=== PATIENT | male | born 1965 | race Caucasian/White ===

== ENCOUNTER 2017-02-15 09:15 | Day surgery (SDC) | payer OTHER ==
[2017-02-14 13:49] VITALS: BMI 25.0
[~2017-02-15 09:15] MED LIST: LACTATED RINGERS 1,000 ML IV SCH
[2017-02-15] MEDS ORDERED: LACTATED RINGERS 1,000 ML IV ONE (09:33)
[2017-02-15 09:36] VITALS: RESP 18; TEMP 98
[2017-02-15] MEDS ORDERED: LIDOCAINE 1% 20 ML VIAL (10MG/ML) FOR IV START INTRADERMA ONE (09:37)
[2017-02-15] MEDS ORDERED: PROPOFOL 10 MG/ML 20 ML VIAL IV ONE (10:17)
[2017-02-15] MEDS ORDERED: LIDOCAINE 1% INJ 10MG/ML (20 ML MDV) ONE (10:17)
--- NOTE | 2017-02-15 10:35 | P.PCN ---
Date of Procedure: 02/15/17 Procedure(s) Performed: BRIEF HISTORY: Patient is a 52-year-old pleasant white male, scheduled for an elective colonoscopy as a part of screening for colorectal neoplasia. PROCEDURE PERFORMED: Colonoscopy. PREOPERATIVE DIAGNOSIS: Screening for colon cancer. IV sedation per Anesthesia. PROCEDURE: After informed consent was obtained, the patient, was brought into the endoscopy unit. IV sedation was administered by Anesthesia under continuous monitoring. Digital rectal examination was normal. Initially the Olympus CF- 160 flexible video colonoscope was then inserted in the rectum, gradually advanced into the right colon where there was evidence of previous bowel resection noted. The anastomosis appeared normal. The terminal ileum appeared normal. The ascending colon, transverse colon, descending colon, sigmoid colon , and rectum appeared normal. Retroflexion was performed in the rectum and no lesions were seen. The patient tolerated the procedure well. IMPRESSION: Normal-appearing colon from rectum to the right colon with no evidence of colitis or colorectal neoplasia RECOMMENDATIONS: Findings of this examination were discussed with the patient as well as his family. He was advised to have a repeat screening colonoscopy in 10 years..
[2017-02-15 10:55] VITALS: BP 128/82; PULSE 75
== END 2017-02-15 11:35 | disposition home or self-care (01) ==
LOC: ORWHC2ENDO 09:15
PROVIDERS: ATTEND Internal Medicine Gastroenterology
DX: Z12.11 Encounter for screening for malignant neoplasm of colon (principal); I25.10 Atherosclerotic heart disease of native coronary artery without angina pectoris; I10 Essential (primary) hypertension; E78.5 Hyperlipidemia, unspecified; G47.33 Obstructive sleep apnea (adult) (pediatric); N20.0 Calculus of kidney; Z90.49 Acquired absence of other specified parts of digestive tract; Z79.02 Long term (current) use of antithrombotics/antiplatelets; Z79.82 Long term (current) use of aspirin; Z79.899 Other long term (current) drug therapy; Z88.5 Allergy status to narcotic agent; Z87.891 Personal history of nicotine dependence
CPT/HCPCS: J2001; J2704; G0121; 45378

== ENCOUNTER 2017-11-16 18:05 | Emergency (ER) | payer OTHER ==
[2017-11-16 18:29] VITALS: RESP 18; TEMP 98.2
[2017-11-16] MEDS ORDERED: SODIUM CHLORIDE 0.9% 1,000 ML IV STA ×2 (18:31)
[2017-11-16] MEDS ORDERED: KETOROLAC 30 MG/ML 1 ML VIAL IVP STA (18:31)
[2017-11-16] MEDS ORDERED: ONDANSETRON 4 MG/2 ML VIAL IVP STA (18:31)
[2017-11-16] MEDS ORDERED: HYDROmorphone 1 MG/ML 1 ML SYRINGE IVP STA (18:31)
--- NOTE | 2017-11-16 18:45 | ED ---
Abdominal Pain HPI - General Source: patient, RN notes reviewed, old records reviewed Mode of arrival: ambulatory Limitations: no limitations <Lelo De La Paz - Last Filed: 11/16/17 20:34> <Mary Lewis - Last Filed: 11/17/17 01:41> - General Chief Complaint: Abdominal Pain Stated Complaint: POSS KIDNEY STONE Time Seen by Provider: 11/16/17 18:31 - History of Present Illness Initial Comments: 52-year-old male presents with CC of Left flank and groin pain. He reports he' s had hematuria for the past week. He does have multiple lithotripsies and ureteral stenting. Patient has had no fevers or chills. Multiple episodes of vomiting after the onset of pain. Patient states that his urologist is Dr. Melvin.Patient denies any recent fever, chills, shortness of breath, chest pain , back pain, numbness or tingling, dysuria or hematuria, constipation or diarrhea, headaches or visual changes, or any other current symptoms (Lelo De La Paz) - Related Data Home Medications Medication Instructions Recorded Confirmed Aspirin 81 mg PO DAILY 02/14/17 11/16/17 Atorvastatin [Lipitor] 40 mg PO HS 02/14/17 11/16/17 Isosorbide Mononitrate [Isosorbide 30 mg PO 1800 02/14/17 11/16/17 Mononitrate ER] Losartan [Cozaar] 50 mg PO QAM 02/14/17 11/16/17 Acetaminophen [Tylenol] 500 mg PO Q4-6H PRN 11/16/17 11/16/17 Previous Rx's Medication Instructions Recorded Clopidogrel [Plavix] 75 mg PO DAILY #30 tab 09/26/14 Metoprolol Tartrate [Lopressor] 25 mg PO BID #60 tab 09/26/14 Nitroglycerin Sl Tabs [Nitrostat] 0.4 mg SUBLINGUAL Q5M PRN #25 tab 09/26/14 Acetaminophen with Codeine 1 tab PO Q6H PRN 3 Days #10 tab 11/17/17 [Tylenol w/codeine #3] Ketorolac [Toradol] 10 mg PO Q6HR #28 tab 11/17/17 Ondansetron Odt [Zofran Odt] 4 mg PO Q8HR PRN #12 tab 11/17/17 Allergies Allergy/AdvReac Type Severity Reaction Status Date / Time morphine Allergy Nausea & Verified 11/16/17 19:00 Vomiting codeine AdvReac Vomiting Verified 11/16/17 19:00 Review of Systems ROS Other: All systems not noted in ROS Statement are negative. <Josephine De La Pazily - Last Filed: 11/16/17 20:34> ROS Other: All systems not noted in ROS Statement are negative. <Mary Lewis - Last Filed: 11/17/17 01:41> ROS Statement: Those systems with pertinent positive or pertinent negative responses have been documented in the HPI. Past Medical History Past Medical History: Hyperlipidemia, Hypertension, Myocardial Infarction ([place]), Sleep Apnea/CPAP/BIPAP Additional Past Medical History / Comment(s): kidney stones,no cpap,bowel obstruction,hx adhesion,loose stools since teenager,hemorrhoid Last Myocardial Infarction Date:: 09-23-2014 History of Any Multi-Drug Resistant Organisms: None Reported Past Surgical History: Bowel Resection, Heart Catheterization With Stent Additional Past Surgical History / Comment(s): bowel resection,2 surgeries for adhesions,heart stent x1 Past Anesthesia/Blood Transfusion Reactions: No Reported Reaction Date of Last Stent Placement:: 09-23-2014 Past Psychological History: No Psychological Hx Reported Smoking Status: Current every day smoker Past Alcohol Use History: Daily, Heavy Past Drug Use History: Marijuana - Past Family History Father Family Medical History: CVA/TIA, Hyperlipidemia, Hypertension <Josephine De La Pazily - Last Filed: 11/16/17 20:34> General Exam Limitations: no limitations General appearance: alert, in no apparent distress Head exam: Present: atraumatic, normocephalic, normal inspection Eye exam: Present: normal appearance, PERRL, EOMI. Absent: scleral icterus, conjunctival injection, periorbital swelling ENT exam: Present: normal exam, mucous membranes moist Neck exam: Present: normal inspection. Absent: tenderness, meningismus, lymphadenopathy Respiratory exam: Present: normal lung sounds bilaterally. Absent: respiratory distress, wheezes, rales, rhonchi, stridor Cardiovascular Exam: Present: regular rate, normal rhythm, normal heart sounds. Absent: systolic murmur, diastolic murmur, rubs, gallop, clicks GI/Abdominal exam: Present: soft, tenderness (Patient is le CVA tenderness.), normal bowel sounds. Absent: distended, guarding, rebound, rigid Back exam: Present: normal inspection, CVA tenderness (L) Neurological exam: Present: alert Psychiatric exam: Present: normal affect, normal mood Skin exam: Present: warm, dry, intact, normal color. Absent: rash <Lelo De La Paz - Last Filed: 11/16/17 20:34> <Mary Lewis P - Last Filed: 11/17/17 01:41> - General Exam Comments Initial Comments: 52-year-old male. Alert and oriented. Patient appears in moderate discomfort. (Lelo De La Paz) Vital Signs 11/16/17 11/16/17 18:26 23:21 Temperature 98.2 F Pulse Rate 70 85 Respiratory 18 18 Rate Blood Pressure 188/98 137/86 O2 Sat by Pulse 98 95 Oximetry Medical Decision Making - Lab Data Result diagrams: 11/16/17 18:31 11/16/17 18:31 - Radiology Data Radiology results: report reviewed <Lelo De La Paz - Last Filed: 11/16/17 20:34> - Lab Data Result diagrams: 11/16/17 18:31 11/16/17 18:31 <Mary Lewis - Last Filed: 11/17/17 01:41> - Medical Decision Making 52-year-old male has returned today with severe left-sided flank pain and lower abdominal pain. Here to emergency department in moderate distress. Multiple episodes of vomiting. Patient had IV established and blood work obtained. Blood pressure is elevated white blood cell count of 13,000. Patient clinically had the appearance of a kidney stone is he's had the past. We did do computed tomography scan without contrast today. There is a large obstructing left ureteral calculus at the proximal ureter. The calculus measures approximately 1.5 cm x 2 cm. Patient was given a dose of pain medication and multiple doses of nausea medication. Patient attempted to get a urinalysis but was unsuccessful. Patient will have a bladder scan and urinalysis is pending. Patient's case will be transferred to Dr. ruel norwood 30 5 PM. (Lelo De La Paz) Patient care was signed out to me by Dr. Law at 9 PM, patient had presented with left-sided flank pain, computed tomography scan had revealed a UPJ stone. Labs revealed a creatinine of 1.4. The time of sign out the patient's pain was managed with IV medications and he was awaiting urinalysis. Patient remained in the ER for 3 hours without providing urinalysis. Patient was encouraged provide a urinalysis and was then able to. Urinalysis revealed no evidence of infection. Patient was resting comfortably throughout his ED stay. Discussed with the patient a plan for discharge home, patient does express some hesitancy as he lives nearly 30 minutes away and has had to undergo ureteral stent placement and lithotripsy in the past for stones the size. Advised patient we will attempt by mouth medications and discharge home, he can always return for reevaluation of his worsening or inability to tolerate by mouth medications. She is agreeable with this. The patient states he has had morphine and codeine in the past, both of which cause nausea. He is agreeable to trying Tylenol 3 with Zofran for pain management. In addition patient reports he's been discharged home with by mouth Toradol for pain management with previous kidney stones. I will prescribe the patient Tylenol 3, Zofran and Toradol orally for management of this kidney stone. Return parameters were discussed and patient was discharged home in stable condition. (Mary Lewis) - Lab Data Lab Results 11/16/17 11/16/17 11/16/17 Range/Units 18:31 18:31 21:52 WBC 13.5 H (3.8-10.6) k/uL RBC 5.18 (4.30-5.90) m/uL Hgb 15.9 (13.0-17.5) gm/dL Hct 49.1 (39.0-53.0) % MCV 94.9 (80.0-100.0) fL MCH 30.7 (25.0-35.0) pg MCHC 32.4 (31.0-37.0) g/dL RDW 12.7 (11.5-15.5) % Plt Count 295 (150-450) k/uL Neutrophils % 81 % Lymphocytes % 10 % Monocytes % 7 % Eosinophils % 1 % Basophils % 0 % Neutrophils # 11.0 H (1.3-7.7) k/uL Lymphocytes # 1.3 (1.0-4.8) k/uL Monocytes # 0.9 (0-1.0) k/uL Eosinophils # 0.1 (0-0.7) k/uL Basophils # 0.1 (0-0.2) k/uL Sodium 144 (137-145) mmol/L Potassium 4.3 (3.5-5.1) mmol/L Chloride 110 H (98-107) mmol/L Carbon Dioxide 23 (22-30) mmol/L Anion Gap 11 mmol/L BUN 16 (9-20) mg/dL Creatinine 1.40 H (0.66-1.25) mg/dL Est GFR (CKD-EPI)AfAm 66 (>60 ml/min/1.73 sqM) Est GFR (CKD-EPI)NonAf 57 (>60 ml/min/1.73 sqM) Glucose 126 H (74-99) mg/dL Calcium 9.7 (8.4-10.2) mg/dL Total Bilirubin 0.9 (0.2-1.3) mg/dL AST 39 (17-59) U/L ALT 51 (21-72) U/L Alkaline Phosphatase 65 (38-126) U/L Total Protein 7.2 (6.3-8.2) g/dL Albumin 4.5 (3.5-5.0) g/dL Amylase 68 (30-110) U/L Lipase 107 (23-300) U/L Urine Color Yellow Urine Appearance Clear (Clear) Urine pH 5.0 (5.0-8.0) Ur Specific [place] 1.016 (1.001-1.035) Urine Protein Negative (Negative) Urine Glucose (UA) Negative (Negative) Urine Ketones Trace H (Negative) Urine Blood Trace H (Negative) Urine Nitrite Negative (Negative) Urine Bilirubin Negative (Negative) Urine Urobilinogen <2.0 (<2.0) mg/dL Ur Leukocyte Esterase Negative (Negative) Urine RBC 2 (0-5) /hpf Urine WBC 2 (0-5) /hpf Ur Squamous Epith Cells <1 (0-4) /hpf Hyaline Casts 1 (0-2) /lpf Urine Mucus Rare H (None) /hpf - Radiology Data There is a large calculus obstructing the left kidney at the ureteral pelvic junction. Perinephric edema. Hydronephrosis. Numerous left colliculi. Obstruction is similar to old exam. Clearing of the tiny colliculi the right kidney compared old exam. (Brain,Lelo) Disposition <Lelo De La Paz - Last Filed: 11/16/17 20:34> Is patient prescribed a controlled substance at d/c from ED?: No Time of Disposition: 01:10 <Mary Lewis - Last Filed: 11/17/17 01:41> Clinical Impression: Calculus of kidney Disposition: HOME SELF-CARE Condition: Good Instructions: Kidney Stones (ED) Prescriptions: Acetaminophen with Codeine [Tylenol w/codeine #3] 1 tab PO Q6H PRN 3 Days #10 tab PRN Reason: Pain Ketorolac [Toradol] 10 mg PO Q6HR #28 tab Ondansetron Odt [Zofran Odt] 4 mg PO Q8HR PRN #12 tab PRN Reason: Nausea Referrals: Francine Darby MD [Primary Care Provider] - 1-2 days
[2017-11-16 19:09] LABS: Basophils # (A) 0.1 k/uL (0-0.2); Basophils % (A) 0 %; Eosinophils # (A) 0.1 k/uL (0-0.7); Eosinophils % (A) 1 %; HCT 49.1 % (39.0-53.0); HGB 15.9 gm/dL (13.0-17.5); Lymphocytes # (A) 1.3 k/uL (1.0-4.8); Lymphocytes % (A) 10 %; MCH 30.7 pg (25.0-35.0); MCHC 32.4 g/dL (31.0-37.0); MCV 94.9 fL (80.0-100.0); Mean Platelet Volume 6.1; Monocytes # (A) 0.9 k/uL (0-1.0); Monocytes % (A) 7 %; Neutrophils % (A) 81 %; Platelet Count 295 k/uL (150-450); RBC 5.18 m/uL (4.30-5.90); RDW 12.7 % (11.5-15.5); WBC 13.5 k/uL (3.8-10.6)
[2017-11-16 19:20] LABS: Albumin 4.5 g/dL (3.5-5.0); Calcium 9.7 mg/dL (8.4-10.2); Potassium 4.3 mmol/L (3.5-5.1); Total Bilirubin 0.9 mg/dL (0.2-1.3); Total Protein 7.2 g/dL (6.3-8.2)
--- NOTE | 2017-11-16 19:30 | CT ---
EXAMINATION TYPE: CT abdomen pelvis wo con DATE OF EXAM: 11/16/2017 COMPARISON: 05/18/2010 HISTORY: Left side flank pain. CT DLP: 366.2 mGycm Automated exposure control for dose reduction was used. TECHNIQUE: Helical acquisition of images was performed from the lung bases through the pelvis. FINDINGS: Lung bases are clear. There is no pleural effusion. Heart size is normal. There is no pericardial eff usion. There are small hiatal hernia. Stomach is otherwise normal. Liver spleen pancreas gallbladder appear normal. Bile ducts are not dilated. There is left-sided hydronephrosis with perinephric edema. There are numerous left renal calculi. The re is a 13 mm calculus at the left ureteropelvic junction. Right kidney shows no calculi or hydroneph rosis. There is no retroperitoneal adenopathy. There is no mesenteric adenopathy. There is no intestinal wal l thickening. There are no dilated loops. Bladder distends smoothly. There is no sign of ascites or f ree air. There is no inguinal hernia or adenopathy. Appendix is not seen. There is no sign of appendi citis. IMPRESSION: LARGE CALCULUS OBSTRUCTING LEFT KIDNEY AT THE URETEROPELVIC JUNCTION. PERINEPHRIC EDEMA. HYDRONEPHROS IS. NUMEROUS LEFT RENAL CALCULI. OBSTRUCTION IS SIMILAR TO OLD EXAM. THERE IS CLEARING OF TINY CALCUL I IN THE RIGHT KIDNEY COMPARED TO OLD EXAM.
[2017-11-16] MEDS ORDERED: METOCLOPRAMIDE 5 MG/ML 2 ML VIAL IVP STA (19:48)
[2017-11-16] MEDS ORDERED: diphenhydrAMINE 50 MG/ML 1 ML VIAL IVP STA (19:48)
[2017-11-16 23:22] VITALS: BP 137/86; PULSE 85
[2017-11-16 23:23] LABS: Appearance,Urine Clear (Clear); Bilirubin,Urine Negative (Negative); Blood,Urine Trace (Negative); Color,Urine Yellow; Glucose,Urine (UA) Negative (Negative); Hyaline Casts,Urine 1 /lpf (0-2); Ketones,Urine Trace (Negative); Leukocyte Esterase,Urine Negative (Negative); Mucus,Urine Rare /hpf; Nitrite,Urine Negative (Negative); Protein,Urine Negative (Negative); RBC,Urine 2 /hpf (0-5); Specific Gravity,Urine 1.016 (1.001-1.035); Squamous Epithelial Cell,Urine <1 /hpf (0-4); Urobilinogen,Urine <2.0 mg/dL (<2.0); WBC,Urine 2 /hpf (0-5)
[2017-11-17] MEDS ORDERED: ACET/COD 300 MG/30 MG STARTER PACK 6 TAB BTL PO STA (00:34)
[2017-11-17] MEDS ORDERED: ONDANSETRON 4 MG ODT STARTER PACK 2 TAB BTL PO STA (00:34)
[2017-11-17] MEDS ORDERED: ETODOLAC 400 MG TAB PO STA (00:34)
== END 2017-11-17 01:46 | disposition home or self-care (01) ==
LOC: EC 18:05
DX: N13.2 Hydronephrosis with renal and ureteral calculous obstruction (principal); E78.5 Hyperlipidemia, unspecified; I10 Essential (primary) hypertension; I25.2 Old myocardial infarction; G47.30 Sleep apnea, unspecified; F17.200 Nicotine dependence, unspecified, uncomplicated; Z79.82 Long term (current) use of aspirin; Z79.899 Other long term (current) drug therapy; Z88.5 Allergy status to narcotic agent; Z95.5 Presence of coronary angioplasty implant and graft
CPT/HCPCS: 36415; 80053; 82150; 83690; 85025; 81001; 74176; 99284; 96374; 96375 ×4; 96361 ×6; J1200; J2765; J2405; J1885; J1170; S0119

== ENCOUNTER 2017-11-18 19:46 | Observation (INO) | payer OTHER ==
[2017-11-18] MEDS ORDERED: SODIUM CHLORIDE 0.9% 1,000 ML IV STA (20:43)
[2017-11-18] MEDS ORDERED: KETOROLAC 30 MG/ML 1 ML VIAL IVP STA (20:43)
--- NOTE | 2017-11-18 21:00 | ED ---
Abdominal Pain HPI - General Source: patient, RN notes reviewed Mode of arrival: ambulatory Limitations: no limitations <Megan Jerry - Last Filed: 11/19/17 00:08> <Ant Allan - Last Filed: 11/20/17 08:31> - General Chief Complaint: Abdominal Pain Stated Complaint: Kidney stone Time Seen by Provider: 11/18/17 20:32 - History of Present Illness Initial Comments: This is a 52-year-old male who presents to the emergency department with chief complaint of kidney stone. Patient states he was seen here 2 days ago with left flank pain. He he states he was diagnosed with a left-sided kidney stone. Patient does report a history of kidney stones. He states that he has seen Dr. Melvin 2 times for stenting and lithotripsy. Patient states that his pain has improved since Sunday, however from this afternoon to the pain is worsening. Patient states he has been taking Toradol and Tylenol 3 throughout the weekend. Patient is concerned that the kidney stone is not moving. He denies any fevers or chills, chest pain or shortness of breath, nausea or vomiting. He states he has not had a bowel movement since Sunday. He reports sharp stabbing pain in the left flank that radiates to the abdomen. He states he has generalized abdominal discomfort. (Megan Jerry) - Related Data Home Medications Medication Instructions Recorded Confirmed Atorvastatin [Lipitor] 40 mg PO HS 02/14/17 11/19/17 Isosorbide Mononitrate [Isosorbide 30 mg PO DAILY@1800 02/14/17 11/19/17 Mononitrate ER] Losartan [Cozaar] 50 mg PO QAM 02/14/17 11/19/17 Acetaminophen [Tylenol] 500 mg PO Q4-6H PRN 11/16/17 11/19/17 Previous Rx's Medication Instructions Recorded Metoprolol Tartrate [Lopressor] 25 mg PO BID #60 tab 09/26/14 Nitroglycerin Sl Tabs [Nitrostat] 0.4 mg SUBLINGUAL Q5M PRN #25 tab 09/26/14 Allergies Allergy/AdvReac Type Severity Reaction Status Date / Time morphine Allergy Nausea & Verified 11/19/17 09:26 Vomiting codeine AdvReac Vomiting Verified 11/19/17 09:26 Review of Systems ROS Other: All systems not noted in ROS Statement are negative. <Megan Jerry - Last Filed: 11/19/17 00:08> ROS Other: All systems not noted in ROS Statement are negative. <JerrellAnt - Last Filed: 11/20/17 08:31> ROS Statement: Those systems with pertinent positive or pertinent negative responses have been documented in the HPI. Past Medical History Past Medical History: Hyperlipidemia, Hypertension, Myocardial Infarction ([place]), Sleep Apnea/CPAP/BIPAP Additional Past Medical History / Comment(s): kidney stones,no cpap,bowel obstruction,hx adhesion,loose stools since teenager,hemorrhoid Last Myocardial Infarction Date:: 09-23-2014 History of Any Multi-Drug Resistant Organisms: None Reported Past Surgical History: Bowel Resection, Heart Catheterization With Stent Additional Past Surgical History / Comment(s): bowel resection,2 surgeries for adhesions,heart stent x1 Past Anesthesia/Blood Transfusion Reactions: No Reported Reaction Date of Last Stent Placement:: 09-23-2014 Past Psychological History: No Psychological Hx Reported Smoking Status: Current every day smoker Past Alcohol Use History: Daily, Heavy Past Drug Use History: Marijuana - Past Family History Father Family Medical History: CVA/TIA, Hyperlipidemia, Hypertension <Megan Jerry - Last Filed: 11/19/17 00:08> General Exam Limitations: no limitations <Octaviano Jerryistin Rolan - Last Filed: 11/19/17 00:08> <Ant Allan - Last Filed: 11/20/17 08:31> - General Exam Comments Initial Comments: General: Awake and alert, well-developed; in moderate distress due to pain. Patient is curled up in the position upon entering the room. is at bedside. HEENT: Head atraumatic, normocephalic. Pupils are equal, round and reactive to light. Extraocular movements intact. Oropharynx moist without erythema or exudate. Neck: Supple. Normal ROM. Cardiovascular: Regular rate and rhythm. No murmurs, rubs or gallops. Chest symmetrical. Respiratory: Lungs clear to auscultation bilaterally. No wheezes, rales or rhonchi. Normal respiratory effort with no use of accessory muscles. Abdomen: Soft, mild distention. No tenderness on palpation. No rigidity, rebound or guarding. Normal bowel sounds in all 4 quadrants. Left CVA tenderness. Musculoskeletal: Normal ROM, no tenderness bilateral upper and lower extremities. Skin: [place], warm and dry. Neurological: Alert and oriented x3. CN II-XII grossly intact. Speech is fluent and answers are appropriate. No focal neuro deficits. Psychiatric: Normal mood and affect. No overt signs of depression or anxiety noted. (Megan Jerry) Vital Signs 11/18/17 11/18/17 11/18/17 19:47 21:00 22:00 Temperature 98.8 F Pulse Rate 97 84 97 Respiratory 16 20 18 Rate Blood Pressure 172/101 149/89 149/87 O2 Sat by Pulse 99 97 97 Oximetry 11/18/17 23:18 Temperature 98.1 F Pulse Rate 89 Respiratory 18 Rate Blood Pressure 144/74 O2 Sat by Pulse 97 Oximetry Medical Decision Making - Lab Data Result diagrams: 11/18/17 20:03 11/18/17 20:03 - Radiology Data Radiology results: report reviewed, image reviewed <Megan Jerry - Last Filed: 11/19/17 00:08> - Lab Data Result diagrams: 11/19/17 06:40 11/19/17 06:40 <Ant Allan - Last Filed: 11/20/17 08:31> - Medical Decision Making This is a 52-year-old male who presents to the emergency department with chief complaint of kidney stone. Patient was diagnosed with a left-sided kidney stone on November 16. Computed tomography scan at that time revealed an obstructing stone at the left ureteropelvic junction. Kidney stone measured 13 mm. Patient was discharged home. He has been controlling pain with Toradol and Tylenol with codeine, however he states that the pain is getting worse. He states he has a history of obstructing stones for which he has needed stents and lithotripsy. Patient states that the stones in the past were smaller than the one he currently has. CBC revealed no acute abnormalities. CMP did reveal a creatinine at 1.5, increased from 1.4 on the . KUB revealed a 16 mm calcification at the L3 level. Findings were discussed with attending physician , Dr. Allan who also evaluated the patient. Dr. Allan was in contact with on- call urologist, Dr. Townsend. Patient will be admitted with consult to urologist, Dr. Melvin. Patient is in agreement for admission. His vitals are stable and he is in no acute distress. Pain is controlled. (Megan Jerry) I saw this patient in conjunction with the physician equal opportunity assistant. I performed independent history and physical exam. Agree with case management. (Ant Allan) - Lab Data Lab Results 11/18/17 11/18/17 11/18/17 Range/Units 20:03 20:03 21:00 WBC 8.1 (3.8-10.6) k/uL RBC 4.81 (4.30-5.90) m/uL Hgb 15.3 (13.0-17.5) gm/dL Hct 44.9 (39.0-53.0) % MCV 93.3 (80.0-100.0) fL MCH 31.7 (25.0-35.0) pg MCHC 34.0 (31.0-37.0) g/dL RDW 12.5 (11.5-15.5) % Plt Count 239 (150-450) k/uL Neutrophils % 75 % Lymphocytes % 14 % Monocytes % 8 % Eosinophils % 2 % Basophils % 0 % Neutrophils # 6.1 (1.3-7.7) k/uL Lymphocytes # 1.2 (1.0-4.8) k/uL Monocytes # 0.6 (0-1.0) k/uL Eosinophils # 0.1 (0-0.7) k/uL Basophils # 0.0 (0-0.2) k/uL Sodium 140 (137-145) mmol/L Potassium 3.8 (3.5-5.1) mmol/L Chloride 107 (98-107) mmol/L Carbon Dioxide 26 (22-30) mmol/L Anion Gap 7 mmol/L BUN 15 (9-20) mg/dL Creatinine 1.50 H (0.66-1.25) mg/dL Est GFR (CKD-EPI)AfAm 61 (>60 ml/min/1.73 sqM) Est GFR (CKD-EPI)NonAf 53 (>60 ml/min/1.73 sqM) Glucose 113 H (74-99) mg/dL Calcium 9.0 (8.4-10.2) mg/dL Total Bilirubin 1.8 H (0.2-1.3) mg/dL AST 28 (17-59) U/L ALT 35 (21-72) U/L Alkaline Phosphatase 47 (38-126) U/L Total Protein 6.4 (6.3-8.2) g/dL Albumin 3.9 (3.5-5.0) g/dL Urine Color Light Yellow Urine Appearance Clear (Clear) Urine pH 5.5 (5.0-8.0) Ur Specific [place] 1.008 (1.001-1.035) Urine Protein Negative (Negative) Urine Glucose (UA) Negative (Negative) Urine Ketones Negative (Negative) Urine Blood Small H (Negative) Urine Nitrite Negative (Negative) Urine Bilirubin Negative (Negative) Urine Urobilinogen <2.0 (<2.0) mg/dL Ur Leukocyte Esterase Negative (Negative) Urine RBC 1 (0-5) /hpf Urine WBC 3 (0-5) /hpf Urine Mucus Rare H (None) /hpf - Radiology Data X-ray KUB impression: Calcification at L3 level on left side. There has been removal of the ureteral stent compared 10/08/2010. (Megan Jerry) Disposition <Megan Jerry - Last Filed: 11/19/17 00:08> <Ant Allan - Last Filed: 11/20/17 08:31> Clinical Impression: Ureteropelvic junction (UPJ) obstruction, left Disposition: ADMITTED IP TO THIS HOSP Condition: Good
[2017-11-18 21:01] LABS: Basophils % (A) 0 %; Eosinophils # (A) 0.1 k/uL (0-0.7); Eosinophils % (A) 2 %; HCT 44.9 % (39.0-53.0); HGB 15.3 gm/dL (13.0-17.5); Lymphocytes # (A) 1.2 k/uL (1.0-4.8); Lymphocytes % (A) 14 %; MCH 31.7 pg (25.0-35.0); MCV 93.3 fL (80.0-100.0); Mean Platelet Volume 6.8; Monocytes # (A) 0.6 k/uL (0-1.0); Monocytes % (A) 8 %; Neutrophils # (A) 6.1 k/uL (1.3-7.7); Neutrophils % (A) 75 %; Platelet Count 239 k/uL (150-450); RBC 4.81 m/uL (4.30-5.90); RDW 12.5 % (11.5-15.5); WBC 8.1 k/uL (3.8-10.6)
[2017-11-18 21:18] LABS: Albumin 3.9 g/dL (3.5-5.0); Potassium 3.8 mmol/L (3.5-5.1); Total Bilirubin 1.8 mg/dL (0.2-1.3); Total Protein 6.4 g/dL (6.3-8.2)
--- NOTE | 2017-11-18 21:22 | XR ---
EXAMINATION TYPE: XR KUB DATE OF EXAM: 11/18/2017 COMPARISON: 10/17/2010 HISTORY: Flank pain TECHNIQUE: 2 views upright FINDINGS: Bowel gas pattern is normal. There is no sign of intestinal obstruction or pneumoperitoneum . Fecal pattern is normal. Lung bases are clear. There are no pathologic calcifications over the kidn eys. There are 16 mm faint calcification in the left paraspinal region at L3 level. IMPRESSION: Calcification at L3 level on the left side. There is been removal of the ureteral stent c ompared to 10/08/2010.
[2017-11-18 21:29] LABS: Appearance,Urine Clear (Clear); Bilirubin,Urine Negative (Negative); Blood,Urine Small (Negative); Color,Urine Light Yellow; Glucose,Urine (UA) Negative (Negative); Ketones,Urine Negative (Negative); Leukocyte Esterase,Urine Negative (Negative); Mucus,Urine Rare /hpf; Nitrite,Urine Negative (Negative); PH, Urine 5.5 (5.0-8.0); Protein,Urine Negative (Negative); RBC,Urine 1 /hpf (0-5); Specific Gravity,Urine 1.008 (1.001-1.035); Urobilinogen,Urine <2.0 mg/dL (<2.0); WBC,Urine 3 /hpf (0-5)
[2017-11-18] MEDS ORDERED: HYDROmorphone 1 MG/ML 1 ML SYRINGE IVP PRN (22:41)
[2017-11-18] MEDS ORDERED: IBUPROFEN 400 MG TAB PO PRN (22:41)
[2017-11-18] MEDS ORDERED: NALOXONE 0.4 MG/ML 1 ML VIAL IV PRN (22:41)
[2017-11-18] MEDS ORDERED: ONDANSETRON 4 MG/2 ML VIAL IVP PRN (22:41)
[2017-11-18] MEDS ORDERED: SODIUM CHLORIDE 0.9% 1,000 ML IV SCH (22:45)
[2017-11-19] MEDS: KETOROLAC 30 MG/ML 1 ML VIAL IVP PRN ×2 (03:58→14:42)
[2017-11-19 07:50] LABS: Basophils % (A) 0 %; Eosinophils # (A) 0.1 k/uL (0-0.7); Eosinophils % (A) 2 %; HCT 37.2 % (39.0-53.0); HGB 12.5 gm/dL (13.0-17.5); Lymphocytes % (A) 18 %; MCH 31.2 pg (25.0-35.0); MCHC 33.4 g/dL (31.0-37.0); MCV 93.4 fL (80.0-100.0); Mean Platelet Volume 6.7; Monocytes # (A) 0.6 k/uL (0-1.0); Monocytes % (A) 11 %; Neutrophils # (A) 3.7 k/uL (1.3-7.7); Neutrophils % (A) 67 %; Platelet Count 216 k/uL (150-450); RBC 3.99 m/uL (4.30-5.90); RDW 12.5 % (11.5-15.5); WBC 5.5 k/uL (3.8-10.6)
[2017-11-19 08:10] LABS: Potassium 3.8 mmol/L (3.5-5.1)
[2017-11-19] MEDS ORDERED: ACETAMINOPHEN TAB 500 MG TAB PO PRN (09:41)
[2017-11-19] MEDS ORDERED: NITROGLYCERIN SL TABS 0.4 MG TAB SUBLINGUAL PRN (09:41)
[2017-11-19] MEDS ORDERED: LOSARTAN 50 MG TAB PO SCH (09:45)
[2017-11-19] MEDS ORDERED: METOPROLOL TARTRATE 25 MG TAB PO SCH (09:45)
--- NOTE | 2017-11-19 09:51 | P.GSHP ---
History of Present Illness H&P Date: 11/19/17 The patient is a 52-year-old gentleman with a history of kidney stones who presented to the emergency room with a 15 mm proximal ureteral stone UPJ. This is on the left side. He has had intermittent colic such that he is unable to have this controlled after second emergency room visit. He is admitted to the hospital. The patient is on Plavix for coronary artery disease therefore is not a candidate for immediate shockwave lithotripsy. Patient also has some stones in the left lower pole of the kidney. He has a history of stones or previous ureteroscopy and stenting. He is comfortable this morning. There's been no fever or chills. - Constitutional Constitutional: Reports as per HPI - Cardiovascular Comment: History of a heart attack Cardiovascular: Reports high blood pressure - Genitourinary (Female) Genitourinary: Reports as per HPI Past Medical History Past Medical History: Hyperlipidemia, Hypertension, Myocardial Infarction ([place]), Sleep Apnea/CPAP/BIPAP Additional Past Medical History / Comment(s): kidney stones,no cpap,bowel obstruction,hx adhesion,loose stools since teenager,hemorrhoid Last Myocardial Infarction Date:: 09-23-2014 History of Any Multi-Drug Resistant Organisms: None Reported Past Surgical History: Bowel Resection, Heart Catheterization With Stent Additional Past Surgical History / Comment(s): bowel resection,2 surgeries for adhesions,heart stent x1 Past Anesthesia/Blood Transfusion Reactions: No Reported Reaction Date of Last Stent Placement:: 09-23-2014 Past Psychological History: No Psychological Hx Reported Smoking Status: Current every day smoker Past Alcohol Use History: Daily, Heavy Past Drug Use History: Marijuana - Past Family History Father Family Medical History: CVA/TIA, Hyperlipidemia, Hypertension Medications and Allergies Home Medications Medication Instructions Recorded Confirmed Type Clopidogrel [Plavix] 75 mg PO DAILY #30 tab 09/26/14 11/19/17 Rx Metoprolol Tartrate [Lopressor] 25 mg PO BID #60 tab 09/26/14 11/19/17 Rx Nitroglycerin Sl Tabs [Nitrostat] 0.4 mg SUBLINGUAL Q5M PRN #25 tab 09/26/1403/08 Rx Aspirin 81 mg PO DAILY 02/14/17 11/19/17 History Atorvastatin [Lipitor] 40 mg PO HS 02/14/17 11/19/17 History Isosorbide Mononitrate [Isosorbide 30 mg PO DAILY@1800 02/14/17 11/19/17 History Mononitrate ER] Losartan [Cozaar] 50 mg PO QAM 02/14/17 11/19/17 History Acetaminophen [Tylenol] 500 mg PO Q4-6H PRN 11/16/17 11/19/17 History Allergies Allergy/AdvReac Type Severity Reaction Status Date / Time morphine Allergy Nausea & Verified 11/19/17 09:26 Vomiting codeine AdvReac Vomiting Verified 11/19/17 09:26 Surgical - Exam Vital Signs Temp Pulse Resp BP Pulse Ox 98.8 F 97 16 172/101 99 11/18/17 19:47 11/18/17 19:47 11/18/17 19:47 11/18/17 19:47 11/18/17 19:47 - General well developed, well nourished, no distress - Eyes PERRL - ENT no hearing loss - Neck trachea midline - Respiratory normal expansion, normal respiratory effort - Cardiovascular Rhythm: regular - Abdomen Abdomen: soft, non tender - Neurologic normal coordination, normal sensation - Musculoskeletal normal posture - Psychiatric oriented to time, oriented to person, oriented to place, speech is normal, memory intact Results - Labs 11/19/17 06:40 11/19/17 06:40 Abnormal Lab Results - Last 24 Hours (Table) 11/18/17 11/18/17 11/19/17 Range/Units 20:03 21:00 06:40 RBC 3.99 L (4.30-5.90) m/uL Hgb 12.5 L (13.0-17.5) gm/dL Hct 37.2 L (39.0-53.0) % Chloride (98-107) mmol/L Creatinine 1.50 H (0.66-1.25) mg/dL Glucose 113 H (74-99) mg/dL Calcium (8.4-10.2) mg/dL Total Bilirubin 1.8 H (0.2-1.3) mg/dL Urine Blood Small H (Negative) Urine Mucus Rare H (None) /hpf 11/19/17 Range/Units 06:40 RBC (4.30-5.90) m/uL Hgb (13.0-17.5) gm/dL Hct (39.0-53.0) % Chloride 113 H (98-107) mmol/L Creatinine 1.30 H (0.66-1.25) mg/dL Glucose (74-99) mg/dL Calcium 8.0 L (8.4-10.2) mg/dL Total Bilirubin (0.2-1.3) mg/dL Urine Blood (Negative) Urine Mucus (None) /hpf Diabetes panel 11/18/17 11/19/17 Range/Units 20:03 06:40 Sodium 140 141 (137-145) mmol/L Potassium 3.8 3.8 (3.5-5.1) mmol/L Chloride 107 113 H (98-107) mmol/L Carbon Dioxide 26 23 (22-30) mmol/L BUN 15 14 (9-20) mg/dL Creatinine 1.50 H 1.30 H (0.66-1.25) mg/dL Glucose 113 H 89 (74-99) mg/dL Calcium 9.0 8.0 L (8.4-10.2) mg/dL AST 28 (17-59) U/L ALT 35 (21-72) U/L Alkaline Phosphatase 47 (38-126) U/L Total Protein 6.4 (6.3-8.2) g/dL Albumin 3.9 (3.5-5.0) g/dL Calcium panel 11/18/17 11/19/17 Range/Units 20:03 06:40 Calcium 9.0 8.0 L (8.4-10.2) mg/dL Albumin 3.9 (3.5-5.0) g/dL Pituitary panel 11/18/17 11/19/17 Range/Units 20:03 06:40 Sodium 140 141 (137-145) mmol/L Potassium 3.8 3.8 (3.5-5.1) mmol/L Chloride 107 113 H (98-107) mmol/L Carbon Dioxide 26 23 (22-30) mmol/L BUN 15 14 (9-20) mg/dL Creatinine 1.50 H 1.30 H (0.66-1.25) mg/dL Glucose 113 H 89 (74-99) mg/dL Calcium 9.0 8.0 L (8.4-10.2) mg/dL Adrenal panel 11/18/17 11/19/17 Range/Units 20:03 06:40 Sodium 140 141 (137-145) mmol/L Potassium 3.8 3.8 (3.5-5.1) mmol/L Chloride 107 113 H (98-107) mmol/L Carbon Dioxide 26 23 (22-30) mmol/L BUN 15 14 (9-20) mg/dL Creatinine 1.50 H 1.30 H (0.66-1.25) mg/dL Glucose 113 H 89 (74-99) mg/dL Calcium 9.0 8.0 L (8.4-10.2) mg/dL Total Bilirubin 1.8 H (0.2-1.3) mg/dL AST 28 (17-59) U/L ALT 35 (21-72) U/L Alkaline Phosphatase 47 (38-126) U/L Total Protein 6.4 (6.3-8.2) g/dL Albumin 3.9 (3.5-5.0) g/dL - Imaging Abdominal x-ray: report reviewed, image reviewed CT scan - abdomen: report reviewed, image reviewed CT scan - pelvis: report reviewed, image reviewed Assessment and Plan Assessment: Impression: Large left ureteropelvic junction stone (15 mm) persistent left ureteral colic. History kidney stones. History coronary artery disease. Present anticoagulation. Recommendations: Because the patient is on aspirin and Plavix and the kidney is in the path of the shockwave beam for shockwave lithotripsy to the stone he is not an immediate candidate for shockwave therapy. His options would be to discontinue the Plavix and aspirin and be set up for shockwave lithotripsy in the future. It would be 2 weeks here in [place] or a shorter time elsewhere in [facility] if the patient can be coordinated with a physician and the machine. A stent can be placed now or at a later date to control his pain if it is not controlled with oral pain medicine. He prefers to not have a stent because of previous experience. Ureteroscopy has also been discussed but most likely would require stenting but the patient is not interested in that at present. We will see how he does today on his oral pain medication. I will notify of this patient's admission
[2017-11-19 15:38] VITALS: PULSE 74; RESP 12; TEMP 98.3
[2017-11-19 15:39] VITALS: BP 155/94
[2017-11-19] MEDS ORDERED: ISOSORBIDE MONONITRATE ER 30 MG TAB.ER.24H PO SCH (18:00)
[2017-11-19] MEDS ORDERED: ATORVASTATIN 40 MG TAB PO SCH (21:00)
--- NOTE | 2017-11-29 07:09 | P.DS ---
Providers Date of admission: 11/18/17 22:41 Attending physician: Ajay Melvin Primary care physician: Francine Mehnaz [facility] Course: The patient who has ahistory of stones was admitted for pain control due to a 15 mm upj stone left. We discussed treatment options including eswl He preferes eswl Since he was on plavix this couldnt be done til he was off this for several days His pain was controlled and he was discharged home He will f/ u with Dr Melvin[his urologist] who will arrange for this to be done His condition is good Patient Condition at Discharge: Good Plan - Discharge Summary Discharge Rx Participant: Yes New Discharge Prescriptions: Continue Metoprolol Tartrate [Lopressor] 25 mg PO BID #60 tab Nitroglycerin Sl Tabs [Nitrostat] 0.4 mg SUBLINGUAL Q5M PRN #25 tab PRN Reason: Chest Pain Isosorbide Mononitrate [Isosorbide Mononitrate ER] 30 mg PO DAILY@1800 Losartan [Cozaar] 50 mg PO QAM Acetaminophen [Tylenol] 500 mg PO Q4-6H PRN PRN Reason: Pain Or Fever > 100.5 Discontinued Clopidogrel [Plavix] 75 mg PO DAILY #30 tab Aspirin 81 mg PO DAILY No Action Clopidogrel [Plavix] 75 mg PO DAILY Aspirin [Adult Low Dose Aspirin EC] 81 mg PO DAILY Atorvastatin [Lipitor] 20 mg PO HS Discharge Medication List Metoprolol Tartrate [Lopressor] 25 mg PO BID #60 tab 09/26/14 [Rx] Nitroglycerin Sl Tabs [Nitrostat] 0.4 mg SUBLINGUAL Q5M PRN #25 tab 09/26/14 [Rx ] Isosorbide Mononitrate [Isosorbide Mononitrate ER] 30 mg PO DAILY@1800 02/14/17 [History] Losartan [Cozaar] 50 mg PO QAM 02/14/17 [History] Acetaminophen [Tylenol] 500 mg PO Q4-6H PRN 11/16/17 [History] Aspirin [Adult Low Dose Aspirin EC] 81 mg PO DAILY 11/20/17 [History] Clopidogrel [Plavix] 75 mg PO DAILY 11/20/17 [History] Atorvastatin [Lipitor] 20 mg PO HS 11/21/17 [History] Follow up Appointment(s)/Referral(s): Ajay Melvin MD [STAFF PHYSICIAN] - 1 Week Francine Darby MD [Primary Care Provider] - 1-2 days Patient Instructions/Handouts: Kidney Stones (DC) Activity/Diet/Wound Care/Special Instructions: CALL DR MELVIN IN THE MORNING CONTINUE TO HOLD PLAVIX AND ASPIRIN Discharge Disposition: HOME SELF-CARE
== END 2017-11-19 20:48 | disposition home or self-care (01) ==
LOC: EC 19:46 → INTOOBSV 22:41 → 3SUR 22:41 → UNDODISIN 11-19 20:48
PROVIDERS: ADMIT Urology; ATTEND Urology
DX: N20.2 Calculus of kidney with calculus of ureter (principal); E78.5 Hyperlipidemia, unspecified; F17.200 Nicotine dependence, unspecified, uncomplicated; G47.30 Sleep apnea, unspecified; I10 Essential (primary) hypertension; I25.10 Atherosclerotic heart disease of native coronary artery without angina pectoris; I25.2 Old myocardial infarction; K64.9 Unspecified hemorrhoids; Z79.02 Long term (current) use of antithrombotics/antiplatelets; Z79.82 Long term (current) use of aspirin; Z79.899 Other long term (current) drug therapy; Z87.442 Personal history of urinary calculi; Z95.5 Presence of coronary angioplasty implant and graft; Z88.5 Allergy status to narcotic agent; Z90.49 Acquired absence of other specified parts of digestive tract; Z82.49 Family history of ischemic heart disease and other diseases of the circulatory system; Z82.3 Family history of stroke; Z84.89 Family history of other specified conditions
CPT/HCPCS: 96376; 96361; 96374; 99285; 36415; 80053; 80048; 85025 ×2; 81001; 74018; G0378 ×2; J1885 ×2

== ENCOUNTER 2017-11-20 14:24 | Observation (INO) | payer OTHER ==
[2017-11-20] MEDS ORDERED: LACTATED RINGERS 1,000 ML IV ONE ×3 (14:58→21:45)
[2017-11-20] MEDS ORDERED: LIDOCAINE 1% 20 ML VIAL (10MG/ML) FOR IV START INTRADERMA ONE (14:58)
[2017-11-20] MEDS ORDERED: ONDANSETRON 4 MG/2 ML VIAL ONE (15:41)
[2017-11-20] MEDS ORDERED: HYDROmorphone 1 MG/ML 1 ML SYRINGE ONE (15:41)
[2017-11-20] MEDS ORDERED: HYDROmorphone 1 MG/ML 1 ML SYRINGE IVP ONE (15:48)
[2017-11-20] MEDS ORDERED: ONDANSETRON 4 MG/2 ML VIAL IVP ONE (15:48)
[2017-11-20] MEDS ORDERED: ONDANSETRON 4 MG/2 ML VIAL IVP PRN (17:11)
[2017-11-20] MEDS ORDERED: HYDROmorphone 0.5 MG/0.5 ML SYRINGE IVP PRN (17:11)
[2017-11-20] MEDS ORDERED: LACTATED RINGERS 1,000 ML IV SCH (17:15)
[2017-11-20] MEDS ORDERED: ceFAZolin IN SWFI 2 GM/20 ML SYRINGE IVP ONE (17:30)
--- NOTE | 2017-11-20 17:43 | P.GSHP ---
History of Present Illness H&P Date: 11/20/17 Chief Complaint: Left flank pain The patient is a 52-year-old gentleman with a history of kidney stones who presented to the emergency room with left renal colic due to a 15 mm left proximal ureteral stone (UPJ). He is on Plavix for coronary artery disease and is therefore not a candidate for immediate shockwave lithotripsy. Patient also has some stones in the left lower pole of the kidney. He hoped to avoid ureteroscopy due to the need for a stent, but he has elected to undergo ureteroscopic removal of the calculus due to intractable pain. - Constitutional Constitutional: Denies chills, Denies fever Past Medical History Past Medical History: Hyperlipidemia, Hypertension, Myocardial Infarction ([place]), Sleep Apnea/CPAP/BIPAP Additional Past Medical History / Comment(s): kidney stones,no cpap,bowel obstruction,hx adhesion,loose stools since teenager,hemorrhoid Last Myocardial Infarction Date:: 09-23-2014 History of Any Multi-Drug Resistant Organisms: None Reported Past Surgical History: Bowel Resection, Heart Catheterization With Stent Additional Past Surgical History / Comment(s): bowel resection,2 surgeries for adhesions,heart stent x1 Past Anesthesia/Blood Transfusion Reactions: No Reported Reaction Date of Last Stent Placement:: 09-23-2014 Past Psychological History: No Psychological Hx Reported Smoking Status: Current every day smoker Past Alcohol Use History: Daily, Heavy Past Drug Use History: Marijuana - Past Family History Father Family Medical History: CVA/TIA, Hyperlipidemia, Hypertension Medications and Allergies Home Medications Medication Instructions Recorded Confirmed Type Metoprolol Tartrate [Lopressor] 25 mg PO BID #60 tab 09/26/14 11/20/17 Rx Nitroglycerin Sl Tabs [Nitrostat] 0.4 mg SUBLINGUAL Q5M PRN #25 tab 09/26/1404/08 Rx Atorvastatin [Lipitor] 40 mg PO HS 02/14/17 11/20/17 History Isosorbide Mononitrate [Isosorbide 30 mg PO DAILY@1800 02/14/17 11/20/17 History Mononitrate ER] Losartan [Cozaar] 50 mg PO QAM 02/14/17 11/20/17 History Acetaminophen [Tylenol] 500 mg PO Q4-6H PRN 09/28/18 10/02/18 History Aspirin [Adult Low Dose Aspirin EC] 81 mg PO DAILY 11/20/17 11/20/17 History Clopidogrel [Plavix] 1 tab PO DAILY 11/20/17 11/20/17 History Allergies Allergy/AdvReac Type Severity Reaction Status Date / Time morphine Allergy Nausea & Verified 11/20/17 14:43 Vomiting codeine AdvReac Vomiting Verified 11/20/17 14:43 Surgical - Exam Vital Signs Temp Pulse Resp BP Pulse Ox 98.5 F 63 18 186/95 100 11/20/17 14:53 11/20/17 14:53 11/20/17 14:53 11/20/17 14:53 11/20/17 14:53 - General well developed, well nourished, severe pain - Respiratory normal respiratory effort - Abdomen Abdomen: soft, non tender, no guarding, no rigid, no rebound - Psychiatric oriented to time, oriented to person, oriented to place, speech is normal, memory intact Assessment and Plan (1) Calculus of kidney Current Visit: No Status: Acute Code(s): N20.0 - CALCULUS OF KIDNEY SNOMED Code(s): 34648162 Plan: Cystoscopy, left ureteroscopy with Holmium laser lithotripsy, possible stone basketing, left ureteral stent insertion. The options have been reviewed, along with potential risks which include anesthesia, bleeding, infection, and ureteral injury. There is also a possibility that the calculus cannot be successfully removed if impacted.
[2017-11-20] MEDS ORDERED: MIDAZOLAM 2 MG/2 ML VIAL ONE (17:45)
[2017-11-20] MEDS ORDERED: fentaNYL (PF) 50 MCG/ML 2 ML AMP ONE (17:45)
[2017-11-20] MEDS ORDERED: ROCURONIUM BROMIDE 10 MG/ML 10 ML VIAL IV ONE (17:45)
[2017-11-20] MEDS ORDERED: SUCCINYLCHOLINE CHLORIDE 100 MG/5 ML SYR IV ONE (17:45)
[2017-11-20] MEDS ORDERED: ePHEDrine SULFATE/0.9% NACL/PF 50 MG/5 ML SYRINGE IV ONE (17:45)
[2017-11-20] MEDS ORDERED: PROPOFOL 10 MG/ML 20 ML VIAL IV ONE (17:45)
[2017-11-20] MEDS ORDERED: LIDOCAINE 1% INJ 10MG/ML (20 ML MDV) ONE (17:45)
[2017-11-20] MEDS ORDERED: SODIUM CHLORIDE 0.9% 50 ML with ceFAZolin 2,000 MG IV ONE ×2 (18:02)
--- NOTE | 2017-11-20 20:38 | P.OP ---
Date of Procedure: 11/20/17 Preoperative Diagnosis: Left UPJ Calculus Postoperative Diagnosis: Same Procedure(s) Performed: Cystoscopy, Left Ureteroscopy with Holmium Laser Lithotripsy, Left Ureteral Stent Insertion Anesthesia: KIMBERA Surgeon: Ajay Melvin Estimated Blood Loss (ml): 10 IV fluids (ml): 1,000 Pathology: none sent Condition: stable Disposition: PACU Indications for Procedure: The patient is a 52-year-old white male with a history of kidney stones who presented to the emergency room with left renal colic due to a 15 mm left proximal ureteral stone (UPJ). He is on Plavix for coronary artery disease and was therefore not a candidate for ESWL when available on November 19. He hoped to avoid ureteroscopy, and instead discontinued taking Plavix in preparation for ESWL. However, he has developed intractable pain which is not adequately relieved with oral analgesics and thus comes for ureteroscopic removal of his obstructing UPJ calculus. He also has some lower pole calculi. Operative Findings: Large UPJ calculus. Multiple lower pole calculi. All calculi were fragmented well. Description of Procedure: The patient was taken to the operating room and placed in the dorsolithotomy position, with legs supported in Nelson stirrups. The external genitalia was prepped and draped sterilely. The 30 lens was used to introduce the 19-Indonesian Stortz cystoscopic sheath through the urethra and into the bladder under direct vision. The prostatic urethra showed evidence of mild lateral lobe enlargement. The bladder was examined in its entirety. Both ureteral orifices were normal anatomic location and configuration. No tumors or foreign bodies were seen. A 0.038 inch Glidewire was passed through the cystoscope. The left ureteral orifice was cannulated, and the Glidewire was advanced up to the UPJ calculus. With some manipulation, it was possible to pass the Glidewire beyond the calculus and into the left renal pelvis. The cystoscope was removed, and an 11/ 13-Indonesian ureteral access catheter was passed over the wire, up to the proximal ureter. The Olympus mini flexible ureteroscope was advanced through the ureteral access catheter. It was advanced through the proximal ureter under direct vision and into the left renal pelvis. The calculus was readily identified. The 200 micron Holmium laser probe was passed through the ureteroscope, and lithotripsy was performed. The calculus was not particularly dense and fragmented well. A dusting technique was utilized. Ultimately, several fragments broke off and migrated into upper pole calyces. In these areas, a popcorning technique was utilized to break these fragments into tiny calculus fragments small enough to pass. The lower pole calyces were then examined, and all calculi were fragmented utilizing a popcorning technique. Once this was completed, there did not appear to be any remaining calculus fragments exceeding 1-2 mm in size. The ureteroscope was removed. The Glidewire was passed through the ureteral access catheter, which was then removed. The Glidewire was backloaded into the cystoscope, which was passed into the bladder. A 26 cm, 4.8-Indonesian double-J ureteral stent was placed over the wire. Proper stent positioning was verified fluoroscopically and endoscopically. The bladder was emptied and the cystoscope removed. The patient tolerated the procedure well and was taken to the recovery room in stable condition.
[2017-11-20] MEDS ORDERED: METOPROLOL TARTRATE 5 MG/5 ML VIAL IVP ONE (21:18)
[2017-11-20 21:24] VITALS: RESP 18
[2017-11-20] MEDS ORDERED: MEPERIDINE 50 MG/ML SYRINGE IVP ONE (21:35)
[2017-11-20 22:57] VITALS: BMI 27.1
[2017-11-20 23:48] LABS: Glucose,Whole Blood 102 mg/dL (75-99)
[2017-11-21] MEDS ORDERED: LACTATED RINGERS 1,000 ML IV SCH (00:15)
[2017-11-21] MEDS: ACETAMINOPHEN IV (For NPO) 1,000 MG in EMPTY BAG 1 BAG IVPB SCH ×2 (00:36→05:33)
[2017-11-21 05:15] VITALS: BP 142/77; PULSE 78; TEMP 98.2
--- NOTE | 2017-11-21 08:21 | FL ---
Fluoroscopy HISTORY: Left-sided flank pain, ureteral pelvic junction calcification 27 seconds fluoroscopy time supplied to the referring clinician. 1 intraoperative C-arm images docum ent the procedure. See dictated report from urology.
== END 2017-11-21 10:50 | disposition home or self-care (01) ==
LOC: OR 14:24 → 5MS5E 15:29 → OR 11-21 01:45
PROVIDERS: ADMIT Urology; ATTEND Urology
DX: N20.2 Calculus of kidney with calculus of ureter (principal); Z87.442 Personal history of urinary calculi; I25.10 Atherosclerotic heart disease of native coronary artery without angina pectoris; I25.2 Old myocardial infarction; I10 Essential (primary) hypertension; F17.210 Nicotine dependence, cigarettes, uncomplicated; G47.33 Obstructive sleep apnea (adult) (pediatric); E78.5 Hyperlipidemia, unspecified; N17.9 Acute kidney failure, unspecified; K21.9 Gastro-esophageal reflux disease without esophagitis; Z95.5 Presence of coronary angioplasty implant and graft; Z82.3 Family history of stroke; Z79.02 Long term (current) use of antithrombotics/antiplatelets; Z79.899 Other long term (current) drug therapy; Z79.82 Long term (current) use of aspirin; Z88.5 Allergy status to narcotic agent
CPT/HCPCS: 74430; 52356; G0378; C2625; C1769; J2250; J2175; J2405; J2001; J3010; J1170; J0690; J0131; J0330; J2704

== ENCOUNTER 2019-11-20 22:29 | Inpatient (IN) | payer OTHER ==
[2019-11-20] MEDS ORDERED: ONDANSETRON 4 MG/2 ML VIAL IVP STA (22:45)
[2019-11-20] MEDS ORDERED: HYDROmorphone 0.5 MG/0.5 ML SYRINGE IVP STA (22:47)
--- NOTE | 2019-11-20 22:52 | ED ---
Abdominal Pain HPI - General Chief Complaint: Abdominal Pain Stated Complaint: Nausea, vomiting Time Seen by Provider: 11/20/19 22:38 Source: patient, EMS Mode of arrival: EMS Limitations: no limitations - History of Present Illness Initial Comments: This patient is a 54-year-old man presenting with acute onset of left abdominal pain radiating to his left flank. The patient states he has had previous stones but this does not feel identical. The patient did have some left testicular pain but not had not noted any mass there. He also is experiencing nausea. No changes in urination were noted. Patient denies any associated fever or chills. No chest symptoms. MD Complaint: abdominal pain Onset/Timin -: hour(s) Location: LLQ Migration to: no migration Severity: severe Quality: cramping, aching Consistency: constant Improves With: nothing Worsens With: nothing Associated Symptoms: nausea, vomiting - Related Data Home Medications Medication Instructions Recorded Confirmed Isosorbide Mononitrate [Isosorbide 30 mg PO HS 02/14/17 11/21/19 Mononitrate ER] Acetaminophen [Tylenol] 500 mg PO Q4-6H PRN 11/16/17 11/21/19 Aspirin [Adult Low Dose Aspirin EC] 81 mg PO DAILY 11/20/17 11/21/19 Clopidogrel [Plavix] 75 mg PO DAILY 11/20/17 11/21/19 Atorvastatin [Lipitor] 20 mg PO DAILY 11/21/17 11/21/19 Losartan [Cozaar] 25 mg PO DAILY 11/21/19 11/21/19 Previous Rx's Medication Instructions Recorded Metoprolol Tartrate [Lopressor] 25 mg PO BID #60 tab 09/26/14 Nitroglycerin Sl Tabs [Nitrostat] 0.4 mg SUBLINGUAL Q5M PRN #25 tab 09/26/14 Allergies Allergy/AdvReac Type Severity Reaction Status Date / Time morphine Allergy Nausea & Verified 11/21/19 06:19 Vomiting codeine AdvReac Vomiting Verified 11/21/19 06:19 Review of Systems ROS Statement: Those systems with pertinent positive or pertinent negative responses have been documented in the HPI. ROS Other: All systems not noted in ROS Statement are negative. Constitutional: Denies: fever, chills Respiratory: Denies: cough, dyspnea Cardiovascular: Denies: chest pain, palpitations, orthopnea, edema Gastrointestinal: Reports: abdominal pain, nausea, vomiting. Denies: diarrhea, constipation, hematemesis, melena, hematochezia Genitourinary: Reports: testicular pain. Denies: dysuria, frequency, hematuria, testicular mass Musculoskeletal: Denies: back pain Skin: Denies: rash Neurological: Denies: headache, weakness, numbness Past Medical History Past Medical History: Hyperlipidemia, Hypertension, Myocardial Infarction ([place]), Sleep Apnea/CPAP/BIPAP Additional Past Medical History / Comment(s): kidney stones,no cpap,bowel obstruction,hx adhesion,loose stools since teenager,hemorrhoid Last Myocardial Infarction Date:: 09-23-2014 History of Any Multi-Drug Resistant Organisms: None Reported Past Surgical History: Bowel Resection, Heart Catheterization With Stent Additional Past Surgical History / Comment(s): bowel resection,2 surgeries for a dhesions,heart stent x1 Past Anesthesia/Blood Transfusion Reactions: No Reported Reaction Date of Last Stent Placement:: 09-23-2014 Past Psychological History: No Psychological Hx Reported Smoking Status: Current every day smoker Past Alcohol Use History: Daily, Heavy Past Drug Use History: Marijuana - Past Family History Father Family Medical History: CVA/TIA, Hyperlipidemia, Hypertension Mother Family Medical History: No Reported History General Exam Limitations: no limitations General appearance: alert, in no apparent distress Head exam: Present: atraumatic, normocephalic Eye exam: Present: normal appearance. Absent: scleral icterus, conjunctival injection ENT exam: Present: normal oropharynx Neck exam: Present: normal inspection, full ROM Respiratory exam: Present: normal lung sounds bilaterally. Absent: respiratory distress, wheezes, rales, rhonchi, stridor Cardiovascular Exam: Present: regular rate, normal rhythm, normal heart sounds. Absent: systolic murmur, diastolic murmur, rubs, gallop GI/Abdominal exam: Present: soft, tenderness, hyperactive bowel sounds. Absent: distended, guarding, rebound, rigid, mass, pulsatile mass, hernia exam: Present: normal inspection, vertical testicular lie, circumcision. Absent: testicular tenderness, urethral discharge, scrotal swelling Extremities exam: Present: normal inspection, normal capillary refill. Absent: pedal edema, calf tenderness Back exam: Present: normal inspection. Absent: CVA tenderness (R), CVA tenderness (L) Neurological exam: Present: alert Skin exam: Present: warm, dry, intact, normal color. Absent: rash Course Vital Signs 11/20/19 11/20/19 11/21/19 22:37 23:45 00:46 Temperature 97.9 F Pulse Rate 81 75 86 Pulse Rate [ Hris Administrator ] Pulse Rate [ Left Sitting Pulse Oximetery ] Respiratory 20 19 19 Rate Blood Pressure 170/108 160/68 151/96 Blood Pressure [Right Arm Sitting] Blood Pressure [Right Arm] O2 Sat by Pulse 97 97 98 Oximetry 11/21/19 11/21/19 11/21/19 01:20 02:20 04:14 Temperature 97.7 F Pulse Rate 75 79 66 Pulse Rate [ Hris Administrator ] Pulse Rate [ Left Sitting Pulse Oximetery ] Respiratory 18 19 17 Rate Blood Pressure 165/96 169/102 164/98 Blood Pressure [Right Arm Sitting] Blood Pressure [Right Arm] O2 Sat by Pulse 98 97 98 Oximetry 11/21/19 11/21/19 11/21/19 05:15 06:42 10:29 Temperature 97.7 F 98.2 F Pulse Rate 74 74 Pulse Rate [ Hris Administrator ] Pulse Rate [ 145 H Left Sitting Pulse Oximetery ] Respiratory 19 18 18 Rate Blood Pressure 155/99 163/97 Blood Pressure 157/87 [Right Arm Sitting] Blood Pressure [Right Arm] O2 Sat by Pulse 98 98 88 L Oximetry 11/21/19 11/21/19 11/21/19 10:47 11:46 12:00 Temperature 97.1 F L Pulse Rate Pulse Rate [ 73 63 Hris Administrator ] Pulse Rate [ 65 Left Sitting Pulse Oximetery ] Respiratory 20 14 16 Rate Blood Pressure Blood Pressure 159/96 [Right Arm Sitting] Blood Pressure 116/76 138/74 [Right Arm] O2 Sat by Pulse 99 96 100 Oximetry Procedures - Sepsis Sepsis Focused Exam #1 Time Sepsis Criteria Met: 23:00 Sepsis Focused Exam Date: 11/21/19 Sepsis Focused Exam Time: 04:00 Sepsis Focused Exam Complete: Yes Vital Signs & RN Notes Reviewed: Yes Capillary Refill: < 2 Seconds: Fingers Peripheral Pulses: Normal: Radial (R) Skin Color: Normal for Patient Respiratory Exam: normal lung sounds Cardiovascular Exam: regular rate, normal rhythm Medical Decision Making - Lab Data Result diagrams: 11/22/19 05:08 11/22/19 05:08 Lab Results 11/20/19 11/20/1911/19/20 Range/Units 23:07 23:07 23:07 WBC 13.6 H (3.8-10.6) k/uL RBC 5.01 (4.30-5.90) m/uL Hgb 15.2 (13.0-17.5) gm/dL Hct 46.0 (39.0-53.0) % MCV 91.7 (80.0-100.0) fL MCH 30.3 (25.0-35.0) pg MCHC 33.0 (31.0-37.0) g/dL RDW 12.2 (11.5-15.5) % Plt Count 284 (150-450) k/uL Neutrophils % 85 % Lymphocytes % 7 % Monocytes % 6 % Eosinophils % 1 % Basophils % 0 % Neutrophils # 11.5 H (1.3-7.7) k/uL Lymphocytes # 1.0 (1.0-4.8) k/uL Monocytes # 0.8 (0-1.0) k/uL Eosinophils # 0.2 (0-0.7) k/uL Basophils # 0.0 (0-0.2) k/uL Sodium 139 (137-145) mmol/L Potassium 4.0 (3.5-5.1) mmol/L Chloride 106 (98-107) mmol/L Carbon Dioxide 19 L (22-30) mmol/L Anion Gap 14 mmol/L BUN 15 (9-20) mg/dL Creatinine 1.15 (0.66-1.25) mg/dL Est GFR (CKD-EPI)AfAm 83 (>60 ml/min/1.73 sqM) Est GFR (CKD-EPI)NonAf 72 (>60 ml/min/1.73 sqM) Glucose 162 H (74-99) mg/dL Lactic Ac Sepsis Rflx Plasma Lactic Acid Vinny 4.1 H* (0.7-2.0) mmol/L Calcium 9.3 (8.4-10.2) mg/dL Total Bilirubin 1.1 (0.2-1.3) mg/dL AST 35 (17-59) U/L ALT 45 (4-49) U/L Alkaline Phosphatase 72 (38-126) U/L Total Protein 6.9 (6.3-8.2) g/dL Albumin 4.4 (3.5-5.0) g/dL Amylase 72 (30-110) U/L Lipase 91 (23-300) U/L 11/20/19 Range/Units 23:42 WBC (3.8-10.6) k/uL RBC (4.30-5.90) m/uL Hgb (13.0-17.5) gm/dL Hct (39.0-53.0) % MCV (80.0-100.0) fL MCH (25.0-35.0) pg MCHC (31.0-37.0) g/dL RDW (11.5-15.5) % Plt Count (150-450) k/uL Neutrophils % % Lymphocytes % % Monocytes % % Eosinophils % % Basophils % % Neutrophils # (1.3-7.7) k/uL Lymphocytes # (1.0-4.8) k/uL Monocytes # (0-1.0) k/uL Eosinophils # (0-0.7) k/uL Basophils # (0-0.2) k/uL Sodium (137-145) mmol/L Potassium (3.5-5.1) mmol/L Chloride (98-107) mmol/L Carbon Dioxide (22-30) mmol/L Anion Gap mmol/L BUN (9-20) mg/dL Creatinine (0.66-1.25) mg/dL Est GFR (CKD-EPI)AfAm (>60 ml/min/1.73 sqM) Est GFR (CKD-EPI)NonAf (>60 ml/min/1.73 sqM) Glucose (74-99) mg/dL Lactic Ac Sepsis Rflx Y Plasma Lactic Acid Vinny (0.7-2.0) mmol/L Calcium (8.4-10.2) mg/dL Total Bilirubin (0.2-1.3) mg/dL AST (17-59) U/L ALT (4-49) U/L Alkaline Phosphatase (38-126) U/L Total Protein (6.3-8.2) g/dL Albumin (3.5-5.0) g/dL Amylase (30-110) U/L Lipase (23-300) U/L Disposition Clinical Impression: Ureterolithiasis, Abdominal pain, Lactic acidosis Disposition: ADMITTED IP TO THIS HOSP Condition: Fair
[2019-11-20 23:15] LABS: Basophils % (A) 0 %; Eosinophils # (A) 0.2 k/uL (0-0.7); Eosinophils % (A) 1 %; HGB 15.2 gm/dL (13.0-17.5); Lymphocytes % (A) 7 %; MCH 30.3 pg (25.0-35.0); MCV 91.7 fL (80.0-100.0); Mean Platelet Volume 6.6; Monocytes # (A) 0.8 k/uL (0-1.0); Monocytes % (A) 6 %; Neutrophils # (A) 11.5 k/uL (1.3-7.7); Neutrophils % (A) 85 %; Platelet Count 284 k/uL (150-450); RBC 5.01 m/uL (4.30-5.90); RDW 12.2 % (11.5-15.5); WBC 13.6 k/uL (3.8-10.6)
[2019-11-20 23:28] LABS: Albumin 4.4 g/dL (3.5-5.0); Calcium 9.3 mg/dL (8.4-10.2); Total Bilirubin 1.1 mg/dL (0.2-1.3); Total Protein 6.9 g/dL (6.3-8.2)
[2019-11-20] MEDS ORDERED: HYDROmorphone 1 MG/ML 1 ML SYRINGE IVP STA (23:50)
--- NOTE | 2019-11-20 23:54 | CT ---
EXAMINATION TYPE: CT abdomen pelvis wo con DATE OF EXAM: 11/20/2019 COMPARISON: 11/16/2017 HISTORY: LLQ pain CT DLP: 596.7 mGycm Automated exposure control for dose reduction was used. Images obtained from the diaphragm to the floor the pelvis without contrast. Lung bases are clear. There is no pleural effusion. Heart size is normal. Liver spleen stomach pancreas gallbladder appear normal. Bile ducts are not dilated. There is no adrenal mass. The left kidney shows hydronephrosis and extensive perinephric edema. There is 3 cm cortical cyst medial left kidney. There are's a few left renal calculi that measure up to 1. 5 cm. There is obstructing 1 cm calculus at the left ureteral pelvic junction. The right kidney shows no sign of obstruction. There is no retroperitoneal adenopathy. Bladder disten ds smoothly. There is no inguinal hernia. There is no free fluid in the pelvis. Appendix is not defin itely seen. There is no sign of thickened appendix. There is no mesenteric edema. There is no ascites or free air. There is no bowel obstruction. Lumbar vertebra have normal alignment. Posterior elements are intact. There is no compression fractur e. The bony pelvis is intact. There is some osteosclerosis in both femoral heads. There is no signifi cant joint space narrowing. IMPRESSION: Multiple left-sided renal calculi increased compared to old exam. There is obstructing calculus at th e left ureteral pelvic junction with hydronephrosis and perinephric edema. Severity of obstruction si milar to old exam. 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
[2019-11-21] MEDS ORDERED: SODIUM CHLORIDE 0.9% 1,000 ML IV ONE ×3 (00:12→14:00)
[2019-11-21] MEDS: ONDANSETRON 4 MG/2 ML VIAL IVP STA ×2 (00:27→10:59)
[2019-11-21] MEDS ORDERED: ACETAMINOPHEN TAB 325 MG TAB PO PRN (00:50)
[2019-11-21] MEDS ORDERED: HYDROmorphone 1 MG/ML 1 ML SYRINGE IVP PRN (00:50)
[2019-11-21] MEDS ORDERED: HYDROmorphone 0.5 MG/0.5 ML SYRINGE IVP PRN (00:50)
[2019-11-21] MEDS ORDERED: ONDANSETRON 4 MG/2 ML VIAL IVP PRN (00:50)
[2019-11-21] MEDS ORDERED: NALOXONE 0.4 MG/ML 1 ML VIAL IV PRN (00:50)
[2019-11-21] MEDS ORDERED: NITROGLYCERIN SL TABS 0.4 MG TAB SUBLINGUAL PRN (00:54)
[2019-11-21] MEDS ORDERED: METOPROLOL TARTRATE 25 MG TAB PO STA (02:18)
[2019-11-21] MEDS ORDERED: ISOSORBIDE MONONITRATE ER 30 MG TAB.ER.24H PO STA (02:19)
[2019-11-21] MEDS: SODIUM CHLORIDE 0.9% 1,000 ML IV SCH ×3 (02:45→16:58)
[2019-11-21 06:26] LABS: Appearance,Urine Clear (Clear); Bilirubin,Urine Negative (Negative); Blood,Urine Negative (Negative); Color,Urine Yellow; Glucose,Urine (UA) Negative (Negative); Ketones,Urine Trace (Negative); Leukocyte Esterase,Urine Negative (Negative); Nitrite,Urine Negative (Negative); Protein,Urine Negative (Negative); Specific Gravity,Urine 1.018 (1.001-1.035); Urobilinogen,Urine <2.0 mg/dL (<2.0)
[2019-11-21] MEDS: ASPIRIN 81 MG PO SCH (08:16)
[2019-11-21] MEDS: CLOPIDOGREL 75 MG TAB PO SCH (08:16)
[2019-11-21] MEDS: METOPROLOL TARTRATE 25 MG TAB PO SCH ×2 (08:19→20:48)
[2019-11-21] MEDS: LOSARTAN 50 MG TAB PO SCH (08:19)
--- NOTE | 2019-11-21 08:40 | P.GSCN ---
History of Present Illness Consult date: 11/21/19 History of present illness: 54 male with a history of kidney stones, Has had severe left flank pain in the last 24 hours due to a large upj stone. He is still in pain His wbc is 13.6 He had an elevated lactic acid but his urine is clear and he is afebrile He also has a large volume of left renal stone. He is being admitted for pain control Review of Systems All systems: negative - Constitutional Denies fever, Denies weight loss - EENT Eyes: denies blurred vision Ears, nose, mouth and throat: Denies dysphagia - Cardiovascular Denies chest pain, Denies shortness of breath - Respiratory Denies cough, Denies 7 - Gastrointestinal Reports as per HPI - Genitourinary Denies dysuria, Denies hematuria - Integumentary Denies rash, Denies unusual bruising - Neurological Denies headaches, Denies syncope - Hematologic/Lymphatic Denies easy bleeding, Denies easy bruising Past Medical History Past Medical History: Hyperlipidemia, Hypertension, Myocardial Infarction ([place]), Sleep Apnea/CPAP/BIPAP Additional Past Medical History / Comment(s): kidney stones,no cpap,bowel obstruction,hx adhesion,loose stools since teenager,hemorrhoid Last Myocardial Infarction Date:: 09-23-2014 History of Any Multi-Drug Resistant Organisms: None Reported Past Surgical History: Bowel Resection, Heart Catheterization With Stent Additional Past Surgical History / Comment(s): bowel resection,2 surgeries for a dhesions,heart stent x1 Past Anesthesia/Blood Transfusion Reactions: No Reported Reaction Date of Last Stent Placement:: 09-23-2014 Past Psychological History: No Psychological Hx Reported Smoking Status: Current every day smoker Past Alcohol Use History: Daily, Heavy Past Drug Use History: Marijuana - Past Family History Father Family Medical History: CVA/TIA, Hyperlipidemia, Hypertension Medications and Allergies Home Medications Medication Instructions Recorded Confirmed Type Metoprolol Tartrate [Lopressor] 25 mg PO BID #60 tab 09/26/14 11/21/19 Rx Nitroglycerin Sl Tabs [Nitrostat] 0.4 mg SUBLINGUAL Q5M PRN #25 tab 09/26/14 11/21/19 Rx Isosorbide Mononitrate [Isosorbide 30 mg PO HS 02/14/17 11/21/19 History Mononitrate ER] Losartan [Cozaar] 50 mg PO QAM 02/14/17 11/21/19 History Acetaminophen [Tylenol] 500 mg PO Q4-6H PRN 11/16/17 11/21/19 History Aspirin [Adult Low Dose Aspirin EC] 81 mg PO DAILY 11/20/17 11/21/19 History Clopidogrel [Plavix] 75 mg PO DAILY 11/20/17 11/21/19 History Atorvastatin [Lipitor] 20 mg PO DAILY 11/21/17 11/21/19 History Allergies Allergy/AdvReac Type Severity Reaction Status Date / Time morphine Allergy Nausea & Verified 11/21/19 06:19 Vomiting codeine AdvReac Vomiting Verified 11/21/19 06:19 Surgical - Exam Vital Signs Temp Pulse Resp BP Pulse Ox 97.9 F 81 20 170/108 97 11/20/19 22:37 11/20/19 22:37 11/20/19 22:37 11/20/19 22:37 11/20/19 22:37 - General well developed, well nourished, moderate distress - Eyes PERRL - ENT no hearing loss - Neck trachea midline - Respiratory normal expansion, normal respiratory effort - Cardiovascular Rhythm: regular - Abdomen Abdomen: soft, tender - Genitourinary normal penis with no external lesions, testicles present - Neurologic normal coordination, normal sensation - Musculoskeletal normal posture - Psychiatric oriented to time, oriented to person, oriented to place, speech is normal, memory intact Results - Labs 11/20/19 23:07 11/20/19 23:07 Abnormal Lab Results - Last 24 Hours (Table) 11/20/19 11/20/19 11/20/19 Range/Units 23:07 23:07 23:07 WBC 13.6 H (3.8-10.6) k/uL Neutrophils # 11.5 H (1.3-7.7) k/uL Carbon Dioxide 19 L (22-30) mmol/L Glucose 162 H (74-99) mg/dL Plasma Lactic Acid Vinny 4.1 H* (0.7-2.0) mmol/L Urine Ketones (Negative) 11/21/19 11/21/19 11/21/19 Range/Units 02:30 06:09 06:42 WBC (3.8-10.6) k/uL Neutrophils # (1.3-7.7) k/uL Carbon Dioxide (22-30) mmol/L Glucose (74-99) mg/dL Plasma Lactic Acid Vinny 2.1 H* 2.3 H* (0.7-2.0) mmol/L Urine Ketones Trace H (Negative) Diabetes panel 11/20/19 Range/Units 23:07 Sodium 139 (137-145) mmol/L Potassium 4.0 (3.5-5.1) mmol/L Chloride 106 (98-107) mmol/L Carbon Dioxide 19 L (22-30) mmol/L BUN 15 (9-20) mg/dL Creatinine 1.15 (0.66-1.25) mg/dL Glucose 162 H (74-99) mg/dL Calcium 9.3 (8.4-10.2) mg/dL AST 35 (17-59) U/L ALT 45 (4-49) U/L Alkaline Phosphatase 72 (38-126) U/L Total Protein 6.9 (6.3-8.2) g/dL Albumin 4.4 (3.5-5.0) g/dL Calcium panel 11/20/19 Range/Units 23:07 Calcium 9.3 (8.4-10.2) mg/dL Albumin 4.4 (3.5-5.0) g/dL Pituitary panel 11/20/19 Range/Units 23:07 Sodium 139 (137-145) mmol/L Potassium 4.0 (3.5-5.1) mmol/L Chloride 106 (98-107) mmol/L Carbon Dioxide 19 L (22-30) mmol/L BUN 15 (9-20) mg/dL Creatinine 1.15 (0.66-1.25) mg/dL Glucose 162 H (74-99) mg/dL Calcium 9.3 (8.4-10.2) mg/dL Adrenal panel 11/20/19 Range/Units 23:07 Sodium 139 (137-145) mmol/L Potassium 4.0 (3.5-5.1) mmol/L Chloride 106 (98-107) mmol/L Carbon Dioxide 19 L (22-30) mmol/L BUN 15 (9-20) mg/dL Creatinine 1.15 (0.66-1.25) mg/dL Glucose 162 H (74-99) mg/dL Calcium 9.3 (8.4-10.2) mg/dL Total Bilirubin 1.1 (0.2-1.3) mg/dL AST 35 (17-59) U/L ALT 45 (4-49) U/L Alkaline Phosphatase 72 (38-126) U/L Total Protein 6.9 (6.3-8.2) g/dL Albumin 4.4 (3.5-5.0) g/dL - Imaging CT scan - abdomen: report reviewed, image reviewed CT scan - pelvis: report reviewed, image reviewed Assessment and Plan Assessment: Impression: Left upj stone with colic. Multiple large left renal stones. Possible sepsis Plan: Cysto with placement of double j catheter to relieve pain and sepsis He subsequently will need a PCNL left in the near future.
[2019-11-21] MEDS ORDERED: PROPOFOL 10 MG/ML 20 ML VIAL IV ONE (10:07)
[2019-11-21] MEDS ORDERED: LIDOCAINE 1% INJ 10MG/ML (20 ML MDV) ONE (10:07)
[2019-11-21] MEDS ORDERED: MIDAZOLAM 2 MG/2 ML VIAL ONE (10:07)
[2019-11-21] MEDS ORDERED: LACTATED RINGERS 1,000 ML IV ONE ×2 (10:40)
[2019-11-21] MEDS ORDERED: fentaNYL (PF) 50 MCG/ML 2 ML AMP IVP ONE ×2 (10:59→11:08)
--- NOTE | 2019-11-21 11:41 | P.OP ---
Date of Procedure: 11/21/19 Preoperative Diagnosis: Left UPJ stone with obstruction, colic and possible infection Postoperative Diagnosis: Same Procedure(s) Performed: Cystoscopy, placement of 6 x 24 double-J catheter left Anesthesia: WILDER Surgeon: Jordan Townsend Estimated Blood Loss (ml): 0 Pathology: none sent Condition: stable Disposition: PACU Indications for Procedure: The patient is 54. He is active kidney stone disease. He obstructed a 1 cm left UPJ stone bringing him to the emergency room. He is in severe pain. He has multiple large left renal stones on top of the UPJ stone. His white count was 13,000 his urine is clear but he had an elevated plasma lactic acid at for repeat at 2.1. All the factors illness stent placed but he'll probably need a left percutaneous nephrostolithotomy at a second sitting. Description of Procedure: Patient is brought to the operating suite. He is given a general anesthetic. He's placed lithotomy position with sterile prep and drape. Cystoscopy Foroblique lens and 22-[place]gu[place] sheath identifies a normal urethra. Prostatic ure thra shows some lateral lobe in early middle lobe formation. The bladder is inspected it is trabeculated. There is no obvious infection. The left ureteral orifice is identified and intubated with an 035 straight wire. It is passed up to the stone where it is somewhat impacted but I eventually I'm able to pass the wire by the stone. Over the wires and passed a 6 x 24 double-J catheter that coils in the left renal pelvis and the bladder. The bladder is drained the patient is awakened and returned recovery room good condition. He will be discharged home only in the next 24 hours. He will be followed in the office and set up for left percutaneous nephrostolithotomy.
--- NOTE | 2019-11-21 12:29 | FL ---
EXAMINATION TYPE: FL guidance operating room DATE OF EXAM: 11/21/2019 CLINICAL HISTORY: Obstructing left ureteral calculus. TECHNIQUE: Fluoroscopy. COMPARISON: CT abdomen and pelvis one day earlier. FINDINGS: Fluoroscopic guidance was provided during left ureter stent insertion procedure performed by Dr. Townsend. A total of 8 seconds of fluoroscopic time was utilized during the procedure and single spot intraoperative image is acquired. Single image acquired shows proximal portion of double-J left ureteral stent. IMPRESSION: As Above.
[2019-11-21] MEDS: KETOROLAC 15 MG/ML 1 ML VIAL IVP PRN (16:45)
[2019-11-21] MEDS ORDERED: ISOSORBIDE MONONITRATE ER 30 MG TAB.ER.24H PO SCH (18:00)
--- NOTE | 2019-11-21 20:30 | P.HPIM ---
History of Present Illness H&P Date: 11/21/19 Chief Complaint: Left Flank pain Patient is a 54-year-old male with a known history of hypertension, hyperlipidemia, obstructive sleep apnea, history of previous nephrolithiasis and currently everyday smoker and daily alcohol use and marijuana use presents to ER with complaints of left flank pain radiating down towards the groin. Pain is associate with nausea no episodes of vomiting. Denies any dysuria. No fever no chills. No complaints of chest pain or shortness of breath. CT of the abdomen pelvis was done in the ER showed multiple left-sided renal calculi increased compared to old exam. There is obstructing calculus at the left ureteral pelvic junction with hydronephrosis and perinephric edema. Lab data showed WBC 13.6, hemoglobin 15.2 and platelets 284 BUN 15 and creatinine 1.15 Plasma lactic acid is 4.1 Urinalysis showed leukocyte Estrace negative and nitrite negative. Amylase lipase within normal limits. Patient has been afebrile on admission. Review of Systems Constitutional: Patient denies any fever or chills . No generalized weakness or weight loss. Abdomen: Patient denied nausea vomiting and diarrhea and abdominal pain. Cardiovascular: Patient denies any chest pain or short of breath no palpitations. Respiratory: patient denied any cough or sputum production. No shortness of breath Neurologic: Patient denied any numbness or tingling headache. Musculoskeletal: Patient denies any complaints of joint swelling or deformity. Skin: Negative Psychiatric: Negative Endocrine: No heat or cold intolerance. No recent weight gain. Genitourinary: No dysuria or hematuria.left flank pain All other 14 point ROS negative except the above Past Medical History Past Medical History: Hyperlipidemia, Hypertension, Myocardial Infarction ([place]), Sleep Apnea/CPAP/BIPAP Additional Past Medical History / Comment(s): kidney stones,no cpap,bowel obstruction,hx adhesion,loose stools since teenager,hemorrhoid Last Myocardial Infarction Date:: 09-23-2014 History of Any Multi-Drug Resistant Organisms: None Reported Past Surgical History: Bowel Resection, Heart Catheterization With Stent Additional Past Surgical History / Comment(s): bowel resection,2 surgeries for adhesions,heart stent x1 Past Anesthesia/Blood Transfusion Reactions: No Reported Reaction Date of Last Stent Placement:: 09-23-2014 Past Psychological History: No Psychological Hx Reported Smoking Status: Current every day smoker Past Alcohol Use History: Daily, Heavy Past Drug Use History: Marijuana - Past Family History Father Family Medical History: CVA/TIA, Hyperlipidemia, Hypertension Mother Family Medical History: No Reported History Medications and Allergies Home Medications Medication Instructions Recorded Confirmed Type Metoprolol Tartrate [Lopressor] 25 mg PO BID #60 tab 09/26/14 11/21/19 Rx Nitroglycerin Sl Tabs [Nitrostat] 0.4 mg SUBLINGUAL Q5M PRN #25 tab 09/26/14 11/21/19 Rx Isosorbide Mononitrate [Isosorbide 30 mg PO HS 02/14/17 11/21/19 History Mononitrate ER] Acetaminophen [Tylenol] 500 mg PO Q4-6H PRN 11/16/17 11/21/19 History Aspirin [Adult Low Dose Aspirin EC] 81 mg PO DAILY 11/20/17 11/21/19 History Clopidogrel [Plavix] 75 mg PO DAILY 11/20/17 11/21/19 History Atorvastatin [Lipitor] 20 mg PO DAILY 11/21/17 11/21/19 History Losartan [Cozaar] 25 mg PO DAILY 11/21/19 11/21/19 History Allergies Allergy/AdvReac Type Severity Reaction Status Date / Time morphine Allergy Nausea & Verified 11/21/19 06:19 Vomiting codeine AdvReac Vomiting Verified 11/21/19 06:19 Physical Exam Vitals: Vital Signs Temp Pulse Pulse Resp BP BP Pulse Ox 11/21/19 10:29 98.2 F 145 H 18 157/87 88 L 11/21/19 06:42 97.7 F 74 18 163/97 98 11/21/19 05:15 74 19 155/99 98 11/21/19 04:14 66 17 164/98 98 11/21/19 02:20 79 19 169/102 97 11/21/19 01:20 97.7 F 75 18 165/96 98 11/21/19 00:46 86 19 151/96 98 11/20/19 23:45 75 19 160/68 97 11/20/19 22:37 97.9 F 81 20 170/108 97 Intake and Output 11/20/19 11/21/19 11/21/19 22:59 06:59 14:59 Other: Weight 77.111 kg PHYSICAL EXAMINATION: Patient is lying in the bed comfortably, no acute distress, awake alert and oriented.. HEENT: Normocephalic. Neck is supple. Pupils reactive. Nostrils clear. Oral ca vity is moist. Ears reveal no drainage. Neck reveals no JVD, carotid bruits, or thyromegaly. CHEST EXAMINATION: Trachea is central. Symmetrical expansion. Lung gonzalez clear to auscultation and percussion. CARDIAC: Normal S1, S2 with no gallops. No murmurs ABDOMEN: Soft. Bowel sounds normal. No organomegaly. No abdominal bruits. Extremities: reveal no edema. No clubbing or cyanosis Neurologically awake, alert, oriented x3 with well-coordinated movements. No focal deficits noted Skin: No rash or skin lesions. Psychiatric: Coperative. Nonsuicidal Musculoskeletal: No joint swelling or deformity. Normal range of motion. Results CBC & Chem 7: 11/20/19 23:07 11/20/19 23:07 Labs: Abnormal Lab Results - Last 24 Hours (Table) 11/20/19 11/20/19 11/20/19 Range/Units 23:07 23:07 23:07 WBC 13.6 H (3.8-10.6) k/uL Neutrophils # 11.5 H (1.3-7.7) k/uL Carbon Dioxide 19 L (22-30) mmol/L Glucose 162 H (74-99) mg/dL Plasma Lactic Acid Vinny 4.1 H* (0.7-2.0) mmol/L Urine Ketones (Negative) 11/21/19 11/21/19 11/21/19 Range/Units 02:30 06:09 06:42 WBC (3.8-10.6) k/uL Neutrophils # (1.3-7.7) k/uL Carbon Dioxide (22-30) mmol/L Glucose (74-99) mg/dL Plasma Lactic Acid Vinny 2.1 H* 2.3 H* (0.7-2.0) mmol/L Urine Ketones Trace H (Negative) Thrombosis Risk Factor Assmnt - DVT/VTE Prophylaxis DVT/VTE Prophylaxis: Pharmacologic Prophylaxis ordered - Choose All That Apply Each Factor Represents 1 point: Age 41-60 years, Minor surgery planned, Obesity (BMI >25) Thrombosis Risk Factor Assessment Total Risk Factor Score: 3 Thrombosis Risk Factor Assessment Level: Moderate Risk Assessment and Plan Assessment: Acute left renal colic with multiple left renal stones and hydronephrosis. Severe lactic acidosis History of prior nephrolithiasis Hypertension Hyperlipidemia Osteoarthritis Obstructive sleep apnea not on CPAP Ongoing nicotine addiction and alcohol abuse Marijuana use DVT prophylaxis with heparin subcu Plan: Patient will be continued on IV hydration and antibiotics in the form of ceftriaxone. Follow-up urine culture report. Patient was seen by urology and was taken to the OR for placement of J catheter and cystoscopy. Follow-up lactic acid level. Continue the home medications and further recommendations based on the clinical course. Time with Patient: Greater than 30
[2019-11-21] MEDS: THIAMINE 100 MG TAB PO SCH (20:47)
[2019-11-21] MEDS ORDERED: ATORVASTATIN 20 MG TAB PO SCH (21:00)
[2019-11-21 21:23] VITALS: RESP 16
[2019-11-22] MEDS: KETOROLAC 15 MG/ML 1 ML VIAL IVP PRN (02:25)
[2019-11-22] MEDS: SODIUM CHLORIDE 0.9% 1,000 ML IV SCH ×2 (02:28→10:04)
[2019-11-22 05:07] VITALS: BP 129/72; PULSE 70; TEMP 98.4
[2019-11-22 05:31] LABS: Basophils % (A) 0 %; Eosinophils # (A) 0.1 k/uL (0-0.7); Eosinophils % (A) 2 %; HCT 36.3 % (39.0-53.0); Lymphocytes # (A) 1.2 k/uL (1.0-4.8); Lymphocytes % (A) 21 %; MCH 31.3 pg (25.0-35.0); MCHC 33.4 g/dL (31.0-37.0); MCV 93.7 fL (80.0-100.0); Mean Platelet Volume 6.7; Monocytes # (A) 0.5 k/uL (0-1.0); Monocytes % (A) 9 %; Neutrophils # (A) 3.8 k/uL (1.3-7.7); Neutrophils % (A) 65 %; Platelet Count 226 k/uL (150-450); RBC 3.87 m/uL (4.30-5.90); RDW 12.8 % (11.5-15.5); WBC 5.8 k/uL (3.8-10.6)
[2019-11-22 05:34] LABS: HGB 12.1 gm/dL (13.0-17.5)
[2019-11-22] MEDS ORDERED: PANTOPRAZOLE 40 MG/10 ML VIAL IVP SCH (09:00)
[2019-11-22] MEDS: THIAMINE 100 MG TAB PO SCH (09:25)
[2019-11-22] MEDS: LOSARTAN 50 MG TAB PO SCH (09:25)
[2019-11-22] MEDS: METOPROLOL TARTRATE 25 MG TAB PO SCH (09:25)
[2019-11-22] MEDS: CLOPIDOGREL 75 MG TAB PO SCH (09:27)
[2019-11-22] MEDS: ASPIRIN 81 MG PO SCH (09:27)
[2019-11-22 09:56] LABS: African American GFR (CKD) 97.8 (60.0-200.0); Anion Gap 6.5 mmol/L (4.00-12.00); Calcium 7.7 mg/dL (8.7-10.3); Carbon Dioxide 24.5 mmol/L (21.6-31.8); Non-African American GFR(CKD) 84.4 (60.0-200.0); Potassium 3.7 mmol/L (3.5-5.5)
--- NOTE | 2019-11-22 09:57 | P.PN ---
Subjective Progress Note Date: 11/22/19 The patient underwent cystoscopy and placement of a double-J catheter on the left yesterday for a 1 cm obstructing UPJ stone. He feels much better. He has almost 3 cm of stone in his left kidney on top of that. With that in mind he will be best served with a percutaneous nephrostolithotomy. From urologic standpoint he can be discharged home. He should follow-up with me in the office in one week. At that point time we will arrange for this procedure to be done. He understands risks and complications. He understands the procedure. He may resume his home meds at present. Objective - Vital Signs Vital signs: Vital Signs Temp 98.4 F 11/22/19 05:00 Pulse 70 11/22/19 05:00 Resp 16 11/22/19 05:00 BP 129/72 11/22/19 05:00 Pulse Ox 95 11/22/19 05:00 Intake & Output 11/21/19 11/22/19 11/22/19 18:59 06:59 18:59 Intake Total 1025 1495 Balance 1025 1495 Weight 77.111 kg Intake: IV 1025 Intake, IV Titration 1495 Amount Sodium Chloride 0.9% 1, 1495 000 ml @ 130 mls/hr IV . Q7H42M [facility] Rx#:[id number] Other: Voiding Method Toilet Toilet # Voids 1 - Labs CBC & Chem 7: 11/22/19 05:08 11/20/19 23:07 Labs: Abnormal Lab Results - Last 24 Hours (Table) 11/21/19 11/21/19 11/22/19 Range/Units 15:01 18:18 05:08 RBC 3.87 L (4.30-5.90) m/uL Hgb 12.1 L D (13.0-17.5) gm/dL Hct 36.3 L (39.0-53.0) % Plasma Lactic Acid Vinny 2.1 H* 2.6 H* (0.7-2.0) mmol/L Microbiology - Last 24 Hours (Table) 11/21/19 03:41 Blood Culture - Preliminary Blood No Growth after 24 hours
--- NOTE | 2019-11-24 12:29 | CDI ---
Documentation Clarification Form Date: 11/24/2019 11:15:00 AM From: Mabel Lam Phone: If you have a question about this query, please contact Tatiana Cortez [employer] at [phone] between 8am and 5pm. Admit Date: 11/21/2019 12:51:00 AM Patient Name: Venancio Nugent Visit Number: [id number] Discharge Date: 11/22/2019 12:56:00 PM ATTENTION: The Clinical Documentation Specialists (CDI) and [facility] Coding Staff appreciate your assistance in clarifying documentation. Please respond to the clarification below the line at the bottom and electronically sign. The CDI & [facility] Coding staff will review the response and follow-up if needed. Please note: Queries are made part of the Legal Health Record. If you have any questions, please contact the author of this message via ITS. Dr. Suze Burks ED documents Sepsis focused exam. Sepsis criteria met 23:00, Sepsis documentation not carried through chart. Please clarify if patient had sepsis or was sepsis ruled out. History/Risk Factors: Left Ureteral stone, lactic acidosis WBC 13.6 Lactic acid: 4.1 Vitals signs on admission: 97.9 F, 81 bpm, 20, 170/108, 97% RA Treatment: IV cefriaxone, IV hydration, Urine culture report Antibiotics: Ceftriaxone In your professional opinion, please clarify if these findings signify patient had sepsis or sepsis was ruled out. Condition Sepsis ruled out SIRS, without underlying infectious process Sepsis Septic Shock Other, please specify Unable to determine Identify the (suspected) organism Link or clarify if there is associated (due to/with): Organ failure Shock SIRS Criteria (2 or more of the following may indicate SIRS): -Temperature < 96.8F (36C) or > 101.0F (38.3C) -Heart Rate > 90 bpm -Respiratory Rate > 20 breaths/min or PaCO2 < 32 mmHg -White Blood Cell Count > 12,000 or < 4,000 cells/mm3 or > 10% bands -Lactate >2.0 mmol/L (>4.0 is equivalent to septic shock Sepsis ruled out MTDD
== END 2019-11-22 12:56 | disposition home or self-care (01) | DRG 660 ==
LOC: EC 22:29 → 5NMEDONC 11-21 00:51 → 6NMEDSUR 11-21 03:24
PROVIDERS: ADMIT Hospitalist; ATTEND Hospitalist
PROC: 0TJB8ZZ Inspection of Bladder, Via Natural or Artificial Opening Endoscopic (ICD-10-PCS; principal; 2019-11-21 11:00)
PROC: 0T778DZ Dilation of Left Ureter with Intraluminal Device, Via Natural or Artificial Opening Endoscopic (ICD-10-PCS; principal; 2019-11-21 11:00)
DX: N13.2 Hydronephrosis with renal and ureteral calculous obstruction (principal); E87.2 Acidosis; I25.2 Old myocardial infarction; M19.90 Unspecified osteoarthritis, unspecified site; I10 Essential (primary) hypertension; G47.33 Obstructive sleep apnea (adult) (pediatric); E78.5 Hyperlipidemia, unspecified; F10.10 Alcohol abuse, uncomplicated; F17.210 Nicotine dependence, cigarettes, uncomplicated; Z90.49 Acquired absence of other specified parts of digestive tract; Z79.02 Long term (current) use of antithrombotics/antiplatelets; Z79.82 Long term (current) use of aspirin; Z79.899 Other long term (current) drug therapy; Z82.49 Family history of ischemic heart disease and other diseases of the circulatory system; Z87.442 Personal history of urinary calculi; Z95.5 Presence of coronary angioplasty implant and graft; Z88.5 Allergy status to narcotic agent; Z82.3 Family history of stroke
CPT/HCPCS: 36415; 74176; 80048; 80053; 81003; 82150; 83605; 83690; 85025; 87040; 96365; 96375; 96376; 99285

== ENCOUNTER → 2019-12-12 | Outpatient (CLI) | payer OTHER ==
[2019-12-12 12:05] LABS: Basophils # (A) 0.1 k/uL (0-0.2); Basophils % (A) 1 %; Eosinophils # (A) 0.2 k/uL (0-0.7); Eosinophils % (A) 3 %; HCT 44.8 % (39.0-53.0); Lymphocytes # (A) 1.5 k/uL (1.0-4.8); Lymphocytes % (A) 20 %; MCH 32.4 pg (25.0-35.0); MCHC 33.9 g/dL (31.0-37.0); MCV 95.7 fL (80.0-100.0); Mean Platelet Volume 6.8; Monocytes # (A) 0.6 k/uL (0-1.0); Monocytes % (A) 7 %; Neutrophils # (A) 5.2 k/uL (1.3-7.7); Neutrophils % (A) 67 %; Platelet Count 280 k/uL (150-450); RBC 4.68 m/uL (4.30-5.90); RDW 12.3 % (11.5-15.5); WBC 7.7 k/uL (3.8-10.6)
[2019-12-12 12:12] LABS: HGB 15.2 gm/dL (13.0-17.5)
[2019-12-12 12:14] LABS: ALT 67 U/L (4-49); AST 49 U/L (17-59); African American GFR (CKD) >90 (>60 ml/min/1.73 sqM); Albumin 4.6 g/dL (3.5-5.0); Alkaline Phosphatase 77 U/L (38-126); Anion Gap 11 mmol/L; Blood Urea Nitrogen 12 mg/dL (9-20); Calcium 9.5 mg/dL (8.4-10.2); Carbon Dioxide 22 mmol/L (22-30); Chloride 107 mmol/L (98-107); Glucose 98 mg/dL (74-99); Non-African American GFR(CKD) >90 (>60 ml/min/1.73 sqM); Potassium 4.2 mmol/L (3.5-5.1); Sodium 140 mmol/L (137-145); Total Bilirubin 1.2 mg/dL (0.2-1.3); Total Protein 7.1 g/dL (6.3-8.2)
[2019-12-12 13:10] LABS: Appearance,Urine Cloudy (Clear); Bacteria,Urine Rare /hpf; Bilirubin,Urine Negative (Negative); Blood,Urine Large (Negative); Color,Urine Light Red; Glucose,Urine (UA) Negative (Negative); Ketones,Urine Negative (Negative); Leukocyte Esterase,Urine Moderate (Negative); Mucus,Urine Few /hpf; Nitrite,Urine Negative (Negative); PH, Urine 5.5 (5.0-8.0); Protein,Urine 2+ (Negative); RBC,Urine >182 /hpf (0-5); Specific Gravity,Urine 1.022 (1.001-1.035); Squamous Epithelial Cell,Urine 1 /hpf (0-4); Urobilinogen,Urine <2.0 mg/dL (<2.0); WBC,Urine 39 /hpf (0-5)
== END | disposition home or self-care (01) ==
LOC: LABWHC1 11:15
PROVIDERS: ATTEND Urology
DX: Z01.818 Encounter for other preprocedural examination (principal); N20.0 Calculus of kidney
CPT/HCPCS: 36415; 80053; 81001; 85025; 87086

== ENCOUNTER 2019-12-19 11:42 | Observation (INO) | payer OTHER ==
[2019-12-18 11:59] VITALS: BMI 25.0
--- NOTE | 2019-12-18 19:59 | P.GSHP ---
History of Present Illness H&P Date: 12/18/19 54 yo male witha a large volume of left ureteral stones[greater than 3 cm] who had a double j catheter placed a couple of weeks ago to relieve the pain and uti with sepsis He now comes for a pcnl left to remove all the stone and stent The risks complications and alternatives have been discussed. He comes for a left pcnl - Constitutional Constitutional: Denies chills, Denies fever - EENT Eyes: denies blurred vision, denies pain Ears, nose, mouth and throat: Denies headache, Denies sore throat - Cardiovascular Cardiovascular: Denies chest pain, Denies shortness of breath - Respiratory Respiratory: Denies cough, Denies 7 - Gastrointestinal Gastrointestinal: Denies abdominal pain, Denies diarrhea, Denies nausea, Denies vomiting - Genitourinary (Female) Genitourinary: Denies dysuria, Denies hematuria - Genitourinary (Male) Genitourinary: Denies dysuria, Denies hematuria - Musculoskeletal Musculoskeletal: Denies myalgias - Integumentary Integumentary: Denies pruritus, Denies rash - Neurological Neurological: Denies numbness, Denies weakness - Psychiatric Psychiatric: Denies anxiety, Denies depression - Endocrine Endocrine: Denies fatigue, Denies weight change Past Medical History Past Medical History: Hyperlipidemia, Hypertension, Myocardial Infarction ([place]), Sleep Apnea/CPAP/BIPAP Additional Past Medical History / Comment(s): kidney stones,no cpap,bowel obstruction,hx adhesion,loose stools since teenager,hemorrhoid Last Myocardial Infarction Date:: 09-23-2014 History of Any Multi-Drug Resistant Organisms: None Reported Past Surgical History: Bowel Resection, Heart Catheterization With Stent Additional Past Surgical History / Comment(s): cystoscopy lt ureter stent placed 11-21-19,bowel resection,2 surgeries for adhesions,heart stent x1 Past Anesthesia/Blood Transfusion Reactions: No Reported Reaction Additional Past Anesthesia/Blood Transfusion Reaction / Comment(s): b/p was high after post op and took along time to come out of anesthesia w/ kidney stone procedure Nov 2017, hx of waking up during procedure,no hx blood transfusion Date of Last Stent Placement:: 09-23-2014 Smoking Status: Current every day smoker - Past Family History Mother Family Medical History: No Reported History Father Family Medical History: CVA/TIA, Hyperlipidemia, Hypertension Medications and Allergies Home Medications Medication Instructions Recorded Confirmed Type Metoprolol Tartrate [Lopressor] 25 mg PO BID #60 tab 09/26/14 12/18/19 Rx Nitroglycerin Sl Tabs [Nitrostat] 0.4 mg SUBLINGUAL Q5M PRN #25 tab 09/26/14 12/18/19 Rx Isosorbide Mononitrate [Isosorbide 30 mg PO HS 02/14/17 12/18/19 History Mononitrate ER] Aspirin [Adult Low Dose Aspirin EC] 81 mg PO DAILY 11/20/17 12/18/19 History Clopidogrel [Plavix] 75 mg PO DAILY 11/20/17 12/18/19 History Atorvastatin [Lipitor] 20 mg PO DAILY 11/21/17 12/18/19 History Losartan [Cozaar] 25 mg PO QAM 11/21/19 12/18/19 History Allergies Allergy/AdvReac Type Severity Reaction Status Date / Time morphine Allergy Nausea & Verified 12/18/19 09:37 Vomiting codeine AdvReac Vomiting Verified 12/18/19 09:37 Surgical - Exam - General well developed, well nourished, no distress - Eyes PERRL - ENT no hearing loss - Neck trachea midline - Respiratory normal expansion, normal respiratory effort - Cardiovascular Rhythm: regular - Abdomen Abdomen: soft, non tender - Genitourinary normal penis with no external lesions, testicles present - Integumentary no rash, no growths - Neurologic normal coordination, normal sensation - Musculoskeletal normal gait, normal posture - Psychiatric oriented to time, oriented to person, oriented to place, speech is normal, memory intact Results - Imaging CT scan - abdomen: report reviewed, image reviewed CT scan - pelvis: report reviewed, image reviewed Assessment and Plan Assessment: Impression: Left renal and ureteeral stones large Plan: PCNL left
[~2019-12-19 11:42] MED LIST changes: +AMPICILLIN 1,000 MG in SODIUM CHLORIDE 0.9% 50 ML IVPB ONE; +DEXAMETHASONE SOD PHOSPHATE 10 MG/ML 1 ML VIAL IV ONE; +GENTAMICIN 100 MG in SODIUM CHLORIDE 0.9% 100 ML IVPB ONE; -LACTATED RINGERS 1,000 ML IV SCH; +LIDOCAINE 1% (10MG/ML) FOR IV START INTRADERMA PRN; +MIDAZOLAM 2 MG/2 ML VIAL IV PRN; +ONDANSETRON 4 MG/2 ML VIAL IVP ONE
--- NOTE | 2019-12-19 12:27 | XR ---
EXAMINATION TYPE: XR KUB DATE OF EXAM: 12/19/2019 12:10 PM CLINICAL HISTORY: Presurgical study. Left-sided kidney stones TECHNIQUE: Two supine KUB images of the abdomen are obtained. COMPARISON: Most recent CT November 20, 2019. FINDINGS: New double-J left ureteral stent. Prior obstructing 10 mm proximal left ureter calculus is not seen on current study. Approximately 19 mm large calculus lower pole of the left kidney redemonst rated and stable. Tiny renal calculi bilaterally on CT less well seen on plain films. Stable right pelvic phlebolith. Overall nonobstructive bowel gas pattern. Avascular necrosis in the bilateral femoral heads is redemo nstrated. IMPRESSION: As above
[2019-12-19] MEDS: LACTATED RINGERS 1,000 ML IV SCH ×2 (12:52→21:18)
[2019-12-19] MEDS ORDERED: MIDAZOLAM 2 MG/2 ML VIAL ONE (13:00)
[2019-12-19] MEDS ORDERED: PROPOFOL 10 MG/ML 20 ML VIAL IV ONE (13:00)
[2019-12-19] MEDS ORDERED: fentaNYL (PF) 50 MCG/ML 2 ML AMP ONE (13:00)
[2019-12-19] MEDS ORDERED: SUCCINYLCHOLINE CHLORIDE 100 MG/5 ML SYR IV ONE (13:00)
[2019-12-19] MEDS ORDERED: LIDOCAINE 1% INJ 10MG/ML (20 ML MDV) ONE (13:00)
[2019-12-19] MEDS ORDERED: IOPAMIDOL-370 50ML BTL IRRIGATION ONE (13:25)
[2019-12-19] MEDS ORDERED: NITROGLYCERIN SL TABS 0.4 MG TAB SUBLINGUAL PRN (14:31)
[2019-12-19] MEDS ORDERED: ACETAMINOPHEN TAB 325 MG TAB PO PRN (14:32)
[2019-12-19] MEDS ORDERED: MAG HYDROX/AL HYDROX/SIMETH 30 ML CUP PO PRN (14:32)
[2019-12-19] MEDS ORDERED: NALOXONE 0.4 MG/ML 1 ML VIAL IV PRN (14:33)
[2019-12-19] MEDS ORDERED: HYDROmorphone PCA 10 MG/50 ML BAG IV PRN (14:33)
--- NOTE | 2019-12-19 14:39 | P.OP ---
Date of Procedure: 12/19/19 Preoperative Diagnosis: Left renal calculi large Postoperative Diagnosis: Same Procedure(s) Performed: Cystoscopy, placement of occluding balloon catheter left, removal double-J catheter left, percutaneous nephrostomy (Dr. Wall), percutaneous nephrostolit hotomy at ultrasound, 10-Macanese J nephrostomy tube Anesthesia: WILDER Surgeon: Jordan Townsend Estimated Blood Loss (ml): 50 Pathology: other (Stone) Condition: stable Disposition: PACU Indications for Procedure: The patient is 54. Recently he had a double-J catheter placed for an obstructing infected left ureteral stone that has floated back into the kidney. He comes for percutaneous nephrostolithotomy for large volume of stone greater than 3 cm. Description of Procedure: The patient is brought to the operating suite. He is given a general endotracheal anesthesia. He's placed in a frog position with a sterile prep and drape. Cystoscopy a Foroblique lens and 21-Macanese sheath identifies a normal urethra. A nonobstructing prostate. The left double-J catheter is identified and crossed it and removed. I then pass a 5-Macanese occluding balloon catheter up the left ureter into the renal pelvis. It is secured to a 16-Macanese coud- tip catheter The patient is placed in prone position with care to airways and extremities. Dr. Wall of radiology performed percutaneous access to a posterior upper pole calyx. I dilate the tract to 30-Macanese. I introduced the rigid nephroscope into the collecting system and remove a large volume of kidney stone. Is a very large stone that is identified and broken up with ultrasound and removed. I then pass the flexible scope throughout the collecting system and going to the middle pole calyx where there is a lot of small stone that was flushed out into the renal pelvis and then removed with grasping forceps. Then of the procedure I looked throughout the collecting system there is no remaining stone. Fluoroscopy shows no evidence of stone. 10-Macanese J nephrostomy tube was placed in the renal pelvis and secured to the skin with 2-0 silk. The patient is awake and returned recovery in good condition. Blood loss is approximately 50 mL. He'll be placed in the hospital postoperatively.
[2019-12-19] MEDS: HYDROmorphone 0.5 MG/0.5 ML SYRINGE IVP PRN ×2 (14:40→14:50)
[2019-12-19] MEDS ORDERED: ONDANSETRON 4 MG/2 ML VIAL IVP ONE (15:20)
[2019-12-19] MEDS ORDERED: METOCLOPRAMIDE 5 MG/ML 2 ML VIAL IVP ONE (15:30)
--- NOTE | 2019-12-19 15:38 | FL ---
EXAMINATION TYPE: FL Perc Nephrostomy New Access DATE OF EXAM: 12/19/2019 COMPARISON: CT 11/20/2019, KUB 12/19/2019 HISTORY: Left nephrolithiasis. PROCEDURE: Maximal barrier technique was utilized, hand hygiene obtained with soap and water and alcohol-based h and rub. The skin overlying the left kidney was localized using fluoroscopy and the overlying skin p repped and draped. Skin sukhwinder was made with a scalpel. Access was gained under fluoroscopy, following placement of a ureteral occlusion balloon by the referring clinician and instillation of air in the renal collecting system with a 21-gauge needle to left kidney. A suitable posterior calyx was chose n. A 0.018 inch wire was advanced. The access site was dilated, access site was upsized, safety wi re deployed and subsequently a sheath was advanced into the renal pelvis following dilation with ball oon along the tract. The patient underwent nephrolithotomy by the referring clinician. The patient remained in stable condition without complication. The patient was discharged to observation in the care of anesthesia. 1 minute 9 seconds fluoroscopy time, 2 intraoperative C-arm images document the procedure IMPRESSION: STATUS POST NEPHROSTOMY PLACEMENT FOR NEPHROLITHOTOMY WITH FLUOROSCOPIC GUIDANCE. THIS PROCEDURE PER FORMED BY THE UNDERSIGNED.
[2019-12-19] MEDS: KETOROLAC 15 MG/ML 1 ML VIAL IVP PRN (16:57)
[2019-12-19] MEDS: DEXTROSE 5%-0.45% NACL 1,000 ML IV SCH (19:13)
[2019-12-19] MEDS: HYDROmorphone 1 MG/ML 1 ML SYRINGE IVP PRN (19:43)
[2019-12-19] MEDS: ISOSORBIDE MONONITRATE ER 30 MG TAB.ER.24H PO SCH (19:43)
[2019-12-19] MEDS: METOPROLOL TARTRATE 25 MG TAB PO SCH (19:43)
[2019-12-20] MEDS: HYDROmorphone 1 MG/ML 1 ML SYRINGE IVP PRN ×3 (01:20→20:36)
[2019-12-20] MEDS: ONDANSETRON 4 MG/2 ML VIAL IVP PRN ×2 (01:34→08:22)
[2019-12-20] MEDS: DEXTROSE 5%-0.45% NACL 1,000 ML IV SCH ×3 (02:55→19:40)
[2019-12-20] MEDS: LOSARTAN 25 MG TAB PO SCH (09:03)
[2019-12-20] MEDS: ATORVASTATIN 20 MG TAB PO SCH (09:03)
[2019-12-20] MEDS: METOPROLOL TARTRATE 25 MG TAB PO SCH ×2 (09:03→19:48)
[2019-12-20] MEDS: KETOROLAC 15 MG/ML 1 ML VIAL IVP PRN ×3 (09:05→23:30)
--- NOTE | 2019-12-20 12:15 | P.PN ---
Subjective Progress Note Date: 12/20/19 Principal diagnosis: POD #1. s/p left percutaneous nephrolithotomy The patient underwent an uncomplicated left percutaneous nephrolithotomy yesterday. He was experienced left flank discomfort earlier this morning but is now feeling well. He tolerated diet. He has not yet ambulated. Both the Alexandre catheter and nephrostomy tube are draining clear yellow urine. Objective - Vital Signs Vital signs: Vital Signs Temp 97.9 F 12/20/19 07:00 Pulse 77 12/20/19 07:00 Resp 19 12/20/19 07:00 BP 132/76 12/20/19 07:00 Pulse Ox 95 12/20/19 07:00 Intake & Output 12/19/19 12/20/19 12/20/19 18:59 06:59 18:59 Intake Total 752.5 300 Output Total 270 650 Balance 482.5 -350 Weight 77 kg Intake: IV 752.5 Intake, IV Titration 300 Amount Dextrose 5%-0.45% NaCl 1, 300 000 ml @ 100 mls/hr IV . Q10H [facility] Rx#:[id number] Output: Drainage 300 Left Back 300 Urine 220 350 Estimated Blood Loss 50 Other: Voiding Method Indwelling Catheter Indwelling Catheter Indwelling Catheter # Voids 1 - Constitutional General appearance: Present: average body habitus, no acute distress - Gastrointestinal Gastrointestinal Comment(s): Soft, non-distended, non-tender. Nephrostomy tube intact. - Psychiatric Psychiatric: Present: A&O x's 3, appropriate affect Assessment and Plan (1) Calculus of kidney Current Visit: Yes Status: Acute Code(s): N20.0 - CALCULUS OF KIDNEY SNOMED Code(s): 67251181 Plan: Remove Alexandre catheter. Increase ambulation. Discharge home later today or tomorrow morning.
[2019-12-20] MEDS: ISOSORBIDE MONONITRATE ER 30 MG TAB.ER.24H PO SCH (19:48)
[2019-12-20] MEDS: LACTATED RINGERS 1,000 ML IV SCH (23:28)
[2019-12-21 01:24] VITALS: TEMP 98.1
[2019-12-21] MEDS: DEXTROSE 5%-0.45% NACL 1,000 ML IV SCH (05:26)
[2019-12-21] MEDS: KETOROLAC 15 MG/ML 1 ML VIAL IVP PRN (06:24)
[2019-12-21 07:35] VITALS: BP 151/78; PULSE 67; RESP 16
--- NOTE | 2019-12-21 07:35 | P.DS ---
Providers Date of admission: 12/20/19 04:20 Expected date of discharge: 12/21/19 Attending physician: Jordan Townsend Primary care physician: Francine Darby - Discharge Diagnosis(es) (1) Calculus of kidney Current Visit: Yes Status: Acute Hospital Course: On the day of admission, the patient underwent a left percutaneous nephrolithotomy. There were no complications, and the perioperative course was unremarkable. The patient remained afebrile with stable vital signs. On the first postoperative day, and the nephrostomy tube and Alexandre catheter were both draining clear yellow urine. The Alexandre catheter was removed, and he subsequently did not experience any voiding difficulty. On the second postoperative day, the nephrostomy tube was draining blood-tinged urine. The patient was lightheaded on the first night following surgery, but this resolved. He continued to experience some incisional discomfort with certain movements, likely related to the nephrostomy tube. Procedures: Left percutaneous nephrolithotomy on 12/19/2019 Patient Condition at Discharge: Good Plan - Discharge Summary Discharge Rx Participant: Yes New Discharge Prescriptions: New Ketorolac [Toradol] 10 mg PO Q6HR #10 tab No Action Metoprolol Tartrate [Lopressor] 25 mg PO BID #60 tab Nitroglycerin Sl Tabs [Nitrostat] 0.4 mg SUBLINGUAL Q5M PRN #25 tab PRN Reason: Chest Pain Isosorbide Mononitrate [Isosorbide Mononitrate ER] 30 mg PO HS Clopidogrel [Plavix] 75 mg PO DAILY Aspirin [Adult Low Dose Aspirin EC] 81 mg PO DAILY Atorvastatin [Lipitor] 20 mg PO DAILY Losartan [Cozaar] 25 mg PO QAM Discharge Medication List Metoprolol Tartrate [Lopressor] 25 mg PO BID #60 tab 09/26/14 [Rx] Nitroglycerin Sl Tabs [Nitrostat] 0.4 mg SUBLINGUAL Q5M PRN #25 tab 09/26/14 [Rx] Isosorbide Mononitrate [Isosorbide Mononitrate ER] 30 mg PO HS 02/14/17 [History] Aspirin [Adult Low Dose Aspirin EC] 81 mg PO DAILY 11/20/17 [History] Clopidogrel [Plavix] 75 mg PO DAILY 11/20/17 [History] Atorvastatin [Lipitor] 20 mg PO DAILY 11/21/17 [History] Losartan [Cozaar] 25 mg PO QAM 11/21/19 [History] Ketorolac [Toradol] 10 mg PO Q6HR #10 tab 12/20/19 [Rx] Follow up Appointment(s)/Referral(s): Jordan Townsend MD [STAFF PHYSICIAN] - 1 Week Activity/Diet/Wound Care/Special Instructions: Discharge home with left nephrostomy tube. Instruct patient how to empty urinary drainage bag. No lifting or strenuous activity. Drink plenty of fluids. Diet as tolerated. Discharge Disposition: HOME SELF-CARE
[2019-12-21] MEDS: METOPROLOL TARTRATE 25 MG TAB PO SCH (08:09)
[2019-12-21] MEDS: ATORVASTATIN 20 MG TAB PO SCH (08:09)
[2019-12-21] MEDS: LOSARTAN 25 MG TAB PO SCH (08:09)
== END 2019-12-21 09:45 | disposition home or self-care (01) ==
LOC: OR 11:42 → 4SSUR 14:51 → OR 12-20 06:43
PROVIDERS: ADMIT Urology; ATTEND Urology
DX: N20.2 Calculus of kidney with calculus of ureter (principal); I10 Essential (primary) hypertension; E78.5 Hyperlipidemia, unspecified; G47.30 Sleep apnea, unspecified; F17.200 Nicotine dependence, unspecified, uncomplicated; I25.10 Atherosclerotic heart disease of native coronary artery without angina pectoris; K64.9 Unspecified hemorrhoids; I25.2 Old myocardial infarction; Z79.82 Long term (current) use of aspirin; Z79.02 Long term (current) use of antithrombotics/antiplatelets; Z79.899 Other long term (current) drug therapy; Z88.5 Allergy status to narcotic agent; Z87.442 Personal history of urinary calculi; Z90.49 Acquired absence of other specified parts of digestive tract; Z95.5 Presence of coronary angioplasty implant and graft; Z83.49 Family history of other endocrine, nutritional and metabolic diseases; Z82.49 Family history of ischemic heart disease and other diseases of the circulatory system; Z82.3 Family history of stroke
CPT/HCPCS: 86900; 86901; 86850; 82365; 50432; 74018; 50081; G0378 ×2; C2628; C1769 ×2; C1894; C1729; J2250; J1100; J2765; J2405 ×2; J2001; J3010; J1580; J0290; J1170 ×3; J1885 ×3; J0330; J2704; Q9967

== ENCOUNTER → 2020-02-03 | Outpatient (CLI) | payer OTHER ==
[2020-02-03 20:11] LABS: African American GFR (CKD) 97.1 (60.0-200.0); Calcium 9.8 mg/dL (8.7-10.3); Carbon Dioxide 28.8 mmol/L (21.6-31.8); Magnesium 1.9 mg/dL (1.5-2.4); Non-African American GFR(CKD) 83.8 (60.0-200.0); Phosphorus 3.4 mg/dL (2.4-5.1); Potassium 4.5 mmol/L (3.5-5.5); Uric Acid 7.9 mg/dL (3.7-8.7)
== END | disposition home or self-care (01) ==
LOC: LABWHC1 11:01
PROVIDERS: ATTEND Urology
DX: N20.0 Calculus of kidney (principal)
CPT/HCPCS: 36415; 82310; 82374; 82435; 82565; 83735; 84100; 84132; 84295; 84550

== ENCOUNTER 2020-10-12 10:05 | Emergency (ER) | payer OTHER ==
[2020-10-12 10:53] LABS: Basophils # (A) 0.1 k/uL (0-0.2); Basophils % (A) 1 %; Eosinophils # (A) 0.2 k/uL (0-0.7); Eosinophils % (A) 2 %; HGB 16.8 gm/dL (13.0-17.5); Lymphocytes # (A) 1.4 k/uL (1.0-4.8); Lymphocytes % (A) 18 %; MCH 32.8 pg (25.0-35.0); MCHC 34.2 g/dL (31.0-37.0); MCV 95.8 fL (80.0-100.0); Monocytes # (A) 0.6 k/uL (0-1.0); Monocytes % (A) 8 %; Neutrophils # (A) 5.5 k/uL (1.3-7.7); Neutrophils % (A) 69 %; Platelet Count 329 k/uL (150-450); RBC 5.12 m/uL (4.30-5.90); RDW 12.8 % (11.5-15.5); WBC 7.9 k/uL (3.8-10.6)
[2020-10-12 11:12] LABS: ALT 29 U/L (4-49); AST 32 U/L (17-59); African American GFR (CKD) >90 (>60 ml/min/1.73 sqM); Albumin 4.6 g/dL (3.5-5.0); Alkaline Phosphatase 49 U/L (38-126); Anion Gap 9 mmol/L; Blood Urea Nitrogen 18 mg/dL (9-20); Calcium 10.1 mg/dL (8.4-10.2); Carbon Dioxide 23 mmol/L (22-30); Chloride 104 mmol/L (98-107); Glucose 145 mg/dL (74-99); Non-African American GFR(CKD) 83 (>60 ml/min/1.73 sqM); Potassium 4.5 mmol/L (3.5-5.1); Sodium 136 mmol/L (137-145); Total Bilirubin 0.9 mg/dL (0.2-1.3); Total Protein 6.9 g/dL (6.3-8.2)
[2020-10-12 11:17] LABS: Partial Thromboplastin Time 23.2 sec (22.0-30.0); Prothrombin Time 10.9 sec (9.0-12.0)
--- NOTE | 2020-10-12 12:15 | US ---
EXAMINATION TYPE: US upper ext pseudo RT DATE OF EXAM: 10/12/2020 COMPARISON: NONE CLINICAL HISTORY: post cath bruising/pain. Cardiac catheterization via right radial artery approach 8 days ago at [facility]. EC patient with c/o increased bruising right anterior forearm and patient is on Plavix. Patient also c/o deep cramping in right forearm muscle x 2 days. US findings: Right radial artery is patent throughout its course and in radial artery branch noted mi d distal forearm to wrist. Bilateral Radial Veins and Ulnar Veins are compressible throughout their course. IMPRESSION: No evidence for pseudoaneurysm.
[2020-10-12 12:17] VITALS: TEMP 98.3
--- NOTE | 2020-10-12 13:09 | ED ---
Upper Extremity HPI - General Chief Complaint: Extremity Injury, Upper Stated Complaint: post heart cath-arm spasms & bruising Time Seen by Provider: 10/12/20 10:16 Source: patient, RN notes reviewed Mode of arrival: ambulatory Limitations: no limitations - History of Present Illness Initial Comments: Patient is a 55-year-old male that presents to the emergency department complaining of right arm bruising. He notes a recently had a heart catheterizat ion right radial approach on 10/04/2020. He notes that he's been back to his cribbing setter 2 times since him to get ultrasounds due to ecchymosis. He notes that he woke up this morning with even more ecchymosis and came in to get a second opinion. He notes that his cribbing setter noted no abnormal findings on ultrasound in office. Patient was otherwise a well-appearing 55-year-old male in no apparent distress or pain. She is wanted make sure that everything was okay. She denied any chest pain upon initial evaluation but did report to the nurse that he has on and off again chest pressure. She denied any shortness of breath headache nausea vomiting diarrhea constipation fever fatigue chills. - Related Data Home Medications Medication Instructions Recorded Confirmed Isosorbide Mononitrate [Isosorbide 30 mg PO HS 02/14/17 10/12/20 Mononitrate ER] Aspirin [Adult Low Dose Aspirin EC] 81 mg PO DAILY 11/20/17 10/12/20 Clopidogrel [Plavix] 75 mg PO DAILY 11/20/17 10/12/20 Losartan [Cozaar] 25 mg PO DAILY 11/21/19 10/12/20 Atorvastatin [Lipitor] 40 mg PO HS 10/12/20 10/12/20 Fenofibrate Nanocrystallized 145 mg PO DAILY 10/12/20 10/12/20 [Fenofibrate] Potassium Citrate [Potassium 20 meq PO BID 10/12/20 10/12/20 Citrate ER] Previous Rx's Medication Instructions Recorded Metoprolol Tartrate [Lopressor] 25 mg PO BID #60 tab 09/26/14 Allergies Allergy/AdvReac Type Severity Reaction Status Date / Time codeine AdvReac Vomiting Verified 10/12/20 12:37 morphine AdvReac Nausea & Verified 10/12/20 12:37 Vomiting Review of Systems ROS Statement: Those systems with pertinent positive or pertinent negative responses have been documented in the HPI. ROS Other: All systems not noted in ROS Statement are negative. Past Medical History Past Medical History: Hyperlipidemia, Hypertension, Myocardial Infarction ([place]), Sleep Apnea/CPAP/BIPAP Additional Past Medical History / Comment(s): kidney stones,no cpap,bowel obstru ction,hx adhesion,loose stools since teenager,hemorrhoid Last Myocardial Infarction Date:: 09-23-2014 History of Any Multi-Drug Resistant Organisms: None Reported Past Surgical History: Heart Catheterization With Stent Additional Past Surgical History / Comment(s): bowel resection,2 surgeries for adhesions,heart stent x1, kidney stone removal, lithrotripsy Past Anesthesia/Blood Transfusion Reactions: No Reported Reaction Additional Past Anesthesia/Blood Transfusion Reaction / Comment(s): b/p was high after post op and took along time to come out of anesthesia w/ kidney stone procedure Nov 2017, hx of waking up during procedure,no hx blood transfusion Date of Last Stent Placement:: 09-23-2014 Past Psychological History: No Psychological Hx Reported Smoking Status: Current every day smoker Past Alcohol Use History: Daily, Heavy Past Drug Use History: Marijuana - Past Family History Mother Family Medical History: No Reported History Father Family Medical History: CVA/TIA, Hyperlipidemia, Hypertension General Exam Limitations: no limitations General appearance: alert, in no apparent distress Head exam: Present: atraumatic, normocephalic, normal inspection Eye exam: Present: normal appearance, PERRL, EOMI. Absent: scleral icterus, conjunctival injection, periorbital swelling Neck exam: Present: normal inspection Respiratory exam: Present: normal lung sounds bilaterally. Absent: respiratory distress, wheezes, rales, rhonchi, stridor Cardiovascular Exam: Present: regular rate, normal rhythm, normal heart sounds. Absent: systolic murmur, diastolic murmur, rubs, gallop, clicks GI/Abdominal exam: Present: soft, normal bowel sounds. Absent: distended, tenderness, guarding, rebound, rigid Extremities exam: Present: normal inspection, full ROM, normal capillary refill. Absent: tenderness, pedal edema, joint swelling, calf tenderness Right Forearm Wrist exam: Present: full ROM, ecchymosis (Volar aspect right forearm, nontender nonswollen). Absent: tenderness, swelling, abrasion, laceration, deformity, crepitus, dislocation Neurological exam: Present: alert, oriented X3 Psychiatric exam: Present: normal affect, normal mood Skin exam: Present: warm, dry, intact, normal color. Absent: rash Course Vital Signs 10/12/20 10/12/20 10:07 12:15 Temperature 98.1 F 98.3 F Pulse Rate 86 79 Respiratory 18 18 Rate Blood Pressure 160/103 145/94 O2 Sat by Pulse 97 97 Oximetry Medical Decision Making - Medical Decision Making 55-year-old male with right forearm ecchymosis from a right radial approach heart catheterization on 10/04/2020. Labs, ultrasound to check for true aneurysm ordered. Labs unremarkable. Ultrasound negative for any acute process. Troponin and EKG ordered after patient reported to nurse that he was having on again off again chest discomfort. Troponin negative. EKG similar to previous study. Case discussed with Dr. Franklin, patient discharge home with follow-up to cribbing setter as planned. - Lab Data Result diagrams: 10/12/20 10:44 10/12/20 10:44 Lab Results 10/12/20 10/12/20 10/12/20 Range/Units 10:44 10:44 10:44 WBC 7.9 (3.8-10.6) k/uL RBC 5.12 (4.30-5.90) m/uL Hgb 16.8 (13.0-17.5) gm/dL Hct 49.0 (39.0-53.0) % MCV 95.8 (80.0-100.0) fL MCH 32.8 (25.0-35.0) pg MCHC 34.2 (31.0-37.0) g/dL RDW 12.8 (11.5-15.5) % Plt Count 329 (150-450) k/uL MPV 7.0 Neutrophils % 69 % Lymphocytes % 18 % Monocytes % 8 % Eosinophils % 2 % Basophils % 1 % Neutrophils # 5.5 (1.3-7.7) k/uL Lymphocytes # 1.4 (1.0-4.8) k/uL Monocytes # 0.6 (0-1.0) k/uL Eosinophils # 0.2 (0-0.7) k/uL Basophils # 0.1 (0-0.2) k/uL PT 10.9 (9.0-12.0) sec INR 1.0 (<1.2) APTT 23.2 (22.0-30.0) sec Sodium 136 L (137-145) mmol/L Potassium 4.5 (3.5-5.1) mmol/L Chloride 104 (98-107) mmol/L Carbon Dioxide 23 (22-30) mmol/L Anion Gap 9 mmol/L BUN 18 (9-20) mg/dL Creatinine 1.01 (0.66-1.25) mg/dL Est GFR (CKD-EPI)AfAm >90 (>60 ml/min/1.73 sqM) Est GFR (CKD-EPI)NonAf 83 (>60 ml/min/1.73 sqM) Glucose 145 H (74-99) mg/dL Calcium 10.1 (8.4-10.2) mg/dL Magnesium 2.0 (1.6-2.3) mg/dL Total Bilirubin 0.9 (0.2-1.3) mg/dL AST 32 (17-59) U/L ALT 29 (4-49) U/L Alkaline Phosphatase 49 (38-126) U/L Troponin I (0.000-0.034) ng/mL Total Protein 6.9 (6.3-8.2) g/dL Albumin 4.6 (3.5-5.0) g/dL 10/12/20 Range/Units 12:46 WBC (3.8-10.6) k/uL RBC (4.30-5.90) m/uL Hgb (13.0-17.5) gm/dL Hct (39.0-53.0) % MCV (80.0-100.0) fL MCH (25.0-35.0) pg MCHC (31.0-37.0) g/dL RDW (11.5-15.5) % Plt Count (150-450) k/uL MPV Neutrophils % % Lymphocytes % % Monocytes % % Eosinophils % % Basophils % % Neutrophils # (1.3-7.7) k/uL Lymphocytes # (1.0-4.8) k/uL Monocytes # (0-1.0) k/uL Eosinophils # (0-0.7) k/uL Basophils # (0-0.2) k/uL PT (9.0-12.0) sec INR (<1.2) APTT (22.0-30.0) sec Sodium (137-145) mmol/L Potassium (3.5-5.1) mmol/L Chloride (98-107) mmol/L Carbon Dioxide (22-30) mmol/L Anion Gap mmol/L BUN (9-20) mg/dL Creatinine (0.66-1.25) mg/dL Est GFR (CKD-EPI)AfAm (>60 ml/min/1.73 sqM) Est GFR (CKD-EPI)NonAf (>60 ml/min/1.73 sqM) Glucose (74-99) mg/dL Calcium (8.4-10.2) mg/dL Magnesium (1.6-2.3) mg/dL Total Bilirubin (0.2-1.3) mg/dL AST (17-59) U/L ALT (4-49) U/L Alkaline Phosphatase (38-126) U/L Troponin I <0.012 (0.000-0.034) ng/mL Total Protein (6.3-8.2) g/dL Albumin (3.5-5.0) g/dL - EKG Data -: No EKG Interpreted by Ia EKG shows normal: sinus rhythm Rate: normal EKG Comments: Ventricular rate 69 bpm, VA interval 184 ms, QRS duration 98 ms, QTC 443 ms, PRT axes 69/-19/82. Normal sinus rhythm, nonspecific T-wave abnormality, abnormal ECG. - Radiology Data Radiology results: report reviewed, image reviewed Ultrasound of the right upper extremity: No evidence for pseudoaneurysm Disposition Clinical Impression: Ecchymosis, Chest discomfort Disposition: HOME SELF-CARE Condition: Stable Instructions (If sedation given, give patient instructions): Arm Pain (ED) Additional Instructions: Please return to the Emergency Department if symptoms worsen or any other concerns. Follow-up with cribbing setter as planned. Bruising should take some time to go away. Follow-up with primary care in the next 1-2 days. Is patient prescribed a controlled substance at d/c from ED?: No Referrals: Eusebio Betts MD [Primary Care Provider] - 1-2 days Time of Disposition: 13:57
[2020-10-12 13:50] VITALS: BP 144/93; PULSE 71; RESP 16
== END 2020-10-12 14:09 | disposition home or self-care (01) ==
LOC: EC 10:05
DX: S40.021A Contusion of right upper arm, initial encounter (principal); R07.89 Other chest pain; I10 Essential (primary) hypertension; I25.2 Old myocardial infarction; E78.5 Hyperlipidemia, unspecified; F17.200 Nicotine dependence, unspecified, uncomplicated; Z79.82 Long term (current) use of aspirin; Z88.5 Allergy status to narcotic agent; Z79.899 Other long term (current) drug therapy; Z95.5 Presence of coronary angioplasty implant and graft; X58.XXXA Exposure to other specified factors, initial encounter
CPT/HCPCS: 36415; 80053; 83735; 84484; 85025; 85610; 85730; 93005; 99284

== ENCOUNTER → 2021-09-26 | Outpatient (CLI) | payer OTHER ==
--- NOTE | 2021-09-26 10:39 | XR ---
EXAMINATION TYPE: XR KUB DATE OF EXAM: 09/26/2021 10:29 AM CLINICAL HISTORY: Left flank pain, history renal stones. TECHNIQUE: Upright KUB image of the abdomen is obtained. COMPARISON: KUB 11/22/2019. FINDINGS: Scattered gas is seen in non-distended small bowel loops. Gas and fecal material is seen in non-distended colon. No definitive calculi in the expected regions of the kidneys and ureters. Stabl e pelvic phlebolith. The lung bases are clear and the osseous structures are intact. IMPRESSION: Overall nonobstructive bowel gas pattern. No definitive calculi identified.
== END | disposition home or self-care (01) ==
LOC: RADXRMAIN 10:15
PROVIDERS: ATTEND Urology
DX: N20.0 Calculus of kidney (principal)
CPT/HCPCS: 74018

== ENCOUNTER 2023-11-24 16:13 | Inpatient (IN) | payer OTHER ==
--- NOTE | 2023-11-24 16:48 | ED ---
Abdominal Pain HPI - General Chief Complaint: Abdominal Pain Stated Complaint: Abdominal Pain Time Seen by Provider: 11/24/23 16:30 Source: patient, family, RN notes reviewed Mode of arrival: wheelchair - History of Present Illness Initial Comments: 58-year-old male with history of kidney stones and CAD presenting to the ER chief complaint of left flank pain x 4 hours. Reports a constant dull ache in the left flank that radiates across to the front of the abdomen. He is also having the urge to void but unable to urinate. States he has had intermittent vomiting and diarrhea for the past 2 days with decreased appetite. Denies fever, chills, chest pain, shortness of breath. States he previously followed with Dr. Townsend for kidney stones, last stone was surgically removed and was 16 mm in size. He is on Plavix and aspirin. He does have a history of bowel obstruction and adhesive tissue removal. - Related Data Home Medications Medication Instructions Recorded Confirmed Isosorbide Mononitrate [Isosorbide 30 mg PO HS 02/14/17 10/12/20 Mononitrate ER] Aspirin [Adult Low Dose Aspirin EC] 81 mg PO DAILY 11/20/17 10/12/20 Clopidogrel [Plavix] 75 mg PO DAILY 11/20/17 10/12/20 Losartan [Cozaar] 25 mg PO DAILY 11/21/19 10/12/20 Atorvastatin [Lipitor] 40 mg PO HS 10/12/20 10/12/20 Fenofibrate Nanocrystallized 145 mg PO DAILY 10/12/20 10/12/20 [Fenofibrate] Potassium Citrate [Potassium 20 meq PO BID 10/12/20 10/12/20 Citrate ER] Previous Rx's Medication Instructions Recorded Metoprolol Tartrate [Lopressor] 25 mg PO BID #60 tab 09/26/14 Allergies Allergy/AdvReac Type Severity Reaction Status Date / Time codeine AdvReac Vomiting Verified 11/24/23 16:23 morphine AdvReac Nausea & Verified 11/24/23 16:23 Vomiting Review of Systems ROS Statement: Those systems with pertinent positive or pertinent negative responses have been documented in the HPI. ROS Other: All systems not noted in ROS Statement are negative. Past Medical History Past Medical History: Hyperlipidemia, Hypertension, Myocardial Infarction ([place]), Sleep Apnea/CPAP/BIPAP Additional Past Medical History / Comment(s): kidney stones,no cpap,bowel obstruction,hx adhesion,loose stools since teenager,hemorrhoid Last Myocardial Infarction Date:: 09-23-2014 History of Any Multi-Drug Resistant Organisms: None Reported Past Surgical History: Heart Catheterization With Stent Additional Past Surgical History / Comment(s): bowel resection,2 surgeries for adhesions,heart stent x1, kidney stone removal, lithrotripsy Past Anesthesia/Blood Transfusion Reactions: No Reported Reaction Additional Past Anesthesia/Blood Transfusion Reaction / Comment(s): b/p was high after post op and took along time to come out of anesthesia w/ kidney stone procedure Nov 2017, hx of waking up during procedure,no hx blood transfusion Date of Last Stent Placement:: 09-23-2014 Past Psychological History: No Psychological Hx Reported Smoking Status: Current every day smoker Past Alcohol Use History: Daily, Heavy Past Drug Use History: Marijuana - Past Family History Mother Family Medical History: No Reported History Father Family Medical History: CVA/TIA, Hyperlipidemia, Hypertension General Exam General appearance: alert, in no apparent distress Head exam: Present: atraumatic, normocephalic, normal inspection Eye exam: Present: normal appearance, PERRL, EOMI. Absent: scleral icterus, conjunctival injection, periorbital swelling ENT exam: Present: normal exam, mucous membranes moist Respiratory exam: Present: normal lung sounds bilaterally. Absent: respiratory distress, wheezes, rales, rhonchi, stridor Cardiovascular Exam: Present: regular rate, normal rhythm, normal heart sounds. Absent: systolic murmur, diastolic murmur, rubs, gallop, clicks GI/Abdominal exam: Present: soft, normal bowel sounds. Absent: distended, tenderness, guarding, rebound, rigid Back exam: Present: normal inspection, CVA tenderness (L). Absent: CVA tenderness (R) Neurological exam: Present: alert, oriented X3 Psychiatric exam: Present: normal affect, normal mood Skin exam: Present: warm, dry, intact, normal color. Absent: rash Course Vital Signs 11/24/23 11/24/23 11/24/23 16:19 17:09 18:34 Temperature 98 F Pulse Rate 77 79 Respiratory 18 16 Rate Blood Pressure 182/104 194/111 184/109 O2 Sat by Pulse 99 94 L Oximetry 11/24/23 19:30 Temperature Pulse Rate 88 Respiratory 18 Rate Blood Pressure 150/117 O2 Sat by Pulse 95 Oximetry Medical Decision Making - Medical Decision Making Was pt. sent in by a medical professional or institution (KATIE Strong, VEGETABLE LOADER MACHINE OPERATOR, urgent care, hospital, or long-term...) When possible be specific @ -No Did you speak to anyone other than the patient for history (EMS, parent, family, police, friend...)? What history was obtained from this source @ -No Did you review nursing and triage notes (agree or disagree)? Why? @ -I reviewed and agree with nursing and triage notes Were old charts reviewed (outside hosp., previous admission, EMS record, old EKG, old radiological studies, urgent care reports/EKG's, long-term records)? Report findings @ -No old charts were reviewed Differential Diagnosis (chest pain, altered mental status, abdominal pain women, abdominal pain men, vaginal bleeding, weakness, fever, dyspnea, syncope, headache, dizziness, GI bleed, back pain, seizure, CVA, palpatations, mental health, musculoskeletal)? @ -Differential Abdominal Pain Men: Appendicitis, cholecystitis, diverticulosis, ischemic bowel, pancreatitis, hepatitis, UTI, gastroenteritis, AAA, incarcerated hernia, bowel obstruction, constipation, inflammatory bowel, hepatitis, peptic ulcer disease, splenic infarction, perforated viscus, testicular torsion, this is not meant to be an all-inclusive list EKG interpreted by me (3pts min.). @ -None X-rays interpreted by me (1pt min.). @ -None done CT interpreted by me (1pt min.). @ -CT abdomen pelvis revealed mild left hydronephrosis secondary to 5 mm ureteropelvic junction calculus with additionally nonobstructive calculi bilaterally, hepatic steatosis, prostatomegaly, 5 mm left lower lobe pulmonary nodulestable back to 2019 likely benign U/S interpreted by me (1pt. min.). @ -None done What testing was considered but not performed or refused? (CT, X-rays, U/S, lab s)? Why? @ -None What meds were considered but not given or refused? Why? @ -None Did you discuss the management of the patient with other professionals (professionals i.e. KATIE Strong, VEGETABLE LOADER MACHINE OPERATOR, lab, RT, psych nurse, nursing home social worker, converter skimmer, teacher, agricultural extension officer, rifle case repairer)? Give summary @ -I spoke with on-call urology Dr. Townsend who requests to be on consult with patient admitted to medicine Was smoking cessation discussed for >3mins.? @ -No Was critical care preformed (if so, how long)? @ -No Were there social determinants of health that impacted care today? How? (Homelessness, low income, unemployed, alcoholism, drug addiction, transportation, low edu. Level, literacy, decrease access to med. care, care home, rehab)? @ -No Was there de-escalation of care discussed even if they declined (Discuss DNR or withdrawal of care, Hospice)? DNR status @ -No What co-morbidities impacted this encounter? (DM, HTN, Smoking, COPD, CAD, Cancer, CVA, ARF, Chemo, Hep., AIDS, mental health diagnosis, sleep apnea, morbid obesity)? @ -None Was patient admitted / discharged? Hospital course, mention meds given and route, prescriptions, significant lab abnormalities, going to OR and other pertinent info. @ -Admitted. This is a 58-year-old male presenting with left flank pain x 4 hours with nausea, vomiting, urinary retention. Patient has a history of kidney stones. Patient is hypertensive, afebrile and nontachycardic. Bladder scan reveals 50 mL. There is left CVA tenderness. Abdomen is soft and nontender. Patient is provided with IV fluids, analgesics, and antiemetics. Labs including CBC, CMP, lactic acid, coags remarkable for lactic 4.2. White blood cell count stable at 7.2. Urinalysis reveals moderate blood, rare bacteria. CT revealed mild left hydronephrosis secondary to 5 mm ureteropelvic junction calculus. Findings discussed with patient. Upon reevaluation, pain and nausea remain uncontrolled. Patient is given home blood pressure meds including losartan 50 mg and metoprolol tartate 50 mg for hypertension. I spoke with on-call urology Dr. Townsend who requests to be on consult with patient admitted to medicine, Dr. Byrne is agreeable to this plan. Case was discussed with my ED attending Dr. Moreau. Undiagnosed new problem with uncertain prognosis? @ -No Drug Therapy requiring intensive monitoring for toxicity (Heparin, Nitro, Insulin, Cardizem)? @ -No Were any procedures done? @ -No Diagnosis/symptom? @ -Intractable pain secondary to left renal calculus Acute, or Chronic, or Acute on Chronic? @ -Acute Uncomplicated (without systemic symptoms) or Complicated (systemic symptoms)? @ -Complicated Side effects of treatment? @ -No Exacerbation, Progression, or Severe Exacerbation? @ -No Poses a threat to life or bodily function? How? (Chest pain, [place], [place], pneumonia, PE, COPD, DKA, ARF, appy, cholecystitis, CVA, Diverticulitis, Homicidal, Suicidal, threat to staff... and all critical care pts) @ -Unlikely - Lab Data Result diagrams: 11/24/23 17:05 11/24/23 17:05 Lab Results 11/24/23 11/24/23 11/24/23 Range/Units 17: 17: 17:05 WBC 7.2 (3.8-10.6) k/uL RBC 5.32 (4.30-5.90) m/uL Hgb 17.5 (13.0-17.5) gm/dL Hct 52.3 (39.0-53.0) % MCV 98.2 (80.0-100.0) fL MCH 32.9 (25.0-35.0) pg MCHC 33.5 (31.0-37.0) g/dL RDW 12.2 (11.5-15.5) % Plt Count 308 (150-450) k/uL MPV 7.2 Neutrophils % 79 % Lymphocytes % 11 % Monocytes % 6 % Eosinophils % 2 % Basophils % 0 % Neutrophils # 5.7 (1.3-7.7) k/uL Lymphocytes # 0.8 L (1.0-4.8) k/uL Monocytes # 0.4 (0-1.0) k/uL Eosinophils # 0.1 (0-0.7) k/uL Basophils # 0.0 (0-0.2) k/uL PT (10.0-12.5) sec INR (<1.2) APTT (22.0-30.0) sec Sodium 140 (137-145) mmol/L Potassium 3.6 (3.5-5.1) mmol/L Chloride 104 (98-107) mmol/L Carbon Dioxide 21 L (22-30) mmol/L Anion Gap 15 mmol/L BUN 8 L (9-20) mg/dL Creatinine 0.94 (0.66-1.25) mg/dL Est GFR (CKD-EPI)AfAm >90 (>60 ml/min/1.73 sqM) Est GFR (CKD-EPI)NonAf 89 (>60 ml/min/1.73 sqM) Glucose 169 H (74-99) mg/dL Lactic Ac Sepsis Rflx Plasma Lactic Acid Vinny 4.2 H* (0.7-2.0) mmol/L Calcium 9.4 (8.4-10.2) mg/dL Total Bilirubin 1.3 (0.2-1.3) mg/dL AST 41 (17-59) U/L ALT 34 (4-49) U/L Alkaline Phosphatase 75 (38-126) U/L Total Protein 7.2 (6.3-8.2) g/dL Albumin 4.6 (3.5-5.0) g/dL Urine Color Urine Appearance (Clear) Urine pH (5.0-8.0) Ur Specific [place] (1.001-1.035) Urine Protein (Negative) Urine Glucose (UA) (Negative) Urine Ketones (Negative) Urine Blood (Negative) Urine Nitrite (Negative) Urine Bilirubin (Negative) Urine Urobilinogen (<2.0) mg/dL Ur Leukocyte Esterase (Negative) Urine RBC (0-5) /hpf Urine WBC (0-5) /hpf Urine Bacteria (None) /hpf Urine Mucus (None) /hpf 11/24/23 11/24/23 11/24/23 Range/Units 17:05 17:05 17:30 WBC (3.8-10.6) k/uL RBC (4.30-5.90) m/uL Hgb (13.0-17.5) gm/dL Hct (39.0-53.0) % MCV (80.0-100.0) fL MCH (25.0-35.0) pg MCHC (31.0-37.0) g/dL RDW (11.5-15.5) % Plt Count (150-450) k/uL MPV Neutrophils % % Lymphocytes % % Monocytes % % Eosinophils % % Basophils % % Neutrophils # (1.3-7.7) k/uL Lymphocytes # (1.0-4.8) k/uL Monocytes # (0-1.0) k/uL Eosinophils # (0-0.7) k/uL Basophils # (0-0.2) k/uL PT 11.3 (10.0-12.5) sec INR 1.0 (<1.2) APTT 22.2 (22.0-30.0) sec Sodium (137-145) mmol/L Potassium (3.5-5.1) mmol/L Chloride (98-107) mmol/L Carbon Dioxide (22-30) mmol/L Anion Gap mmol/L BUN (9-20) mg/dL Creatinine (0.66-1.25) mg/dL Est GFR (CKD-EPI)AfAm (>60 ml/min/1.73 sqM) Est GFR (CKD-EPI)NonAf (>60 ml/min/1.73 sqM) Glucose (74-99) mg/dL Lactic Ac Sepsis Rflx Y Plasma Lactic Acid Vinny (0.7-2.0) mmol/L Calcium (8.4-10.2) mg/dL Total Bilirubin (0.2-1.3) mg/dL AST (17-59) U/L ALT (4-49) U/L Alkaline Phosphatase (38-126) U/L Total Protein (6.3-8.2) g/dL Albumin (3.5-5.0) g/dL Urine Color Colorless Urine Appearance Clear (Clear) Urine pH 5.0 (5.0-8.0) Ur Specific [place] 1.008 (1.001-1.035) Urine Protein Negative (Negative) Urine Glucose (UA) Negative (Negative) Urine Ketones 1+ H (Negative) Urine Blood Moderate H (Negative) Urine Nitrite Negative (Negative) Urine Bilirubin Negative (Negative) Urine Urobilinogen <2.0 (<2.0) mg/dL Ur Leukocyte Esterase Negative (Negative) Urine RBC 12 H (0-5) /hpf Urine WBC 1 (0-5) /hpf Urine Bacteria Rare H (None) /hpf Urine Mucus Rare H (None) /hpf Disposition Clinical Impression: Intractable pain, Renal calculus, left Disposition: ADMITTED IP TO THIS HOSP Referrals: Eusebio Betts MD [Primary Care Provider] - 1-2 days Time of Disposition: 19:45
[2023-11-24] MEDS: SODIUM CHLORIDE 0.9% 1,000 ML IV STA ×3 (16:49→18:41)
[2023-11-24] MEDS: ONDANSETRON 4 MG/2 ML VIAL IVP STA (16:50)
[2023-11-24] MEDS: HYDROmorphone 1 MG/ML 1 ML SYRINGE IVP STA (16:52)
[2023-11-24 17:14] LABS: Basophils % (A) 0 %; Eosinophils # (A) 0.1 k/uL (0-0.7); Eosinophils % (A) 2 %; HCT 52.3 % (39.0-53.0); HGB 17.5 gm/dL (13.0-17.5); Lymphocytes # (A) 0.8 k/uL (1.0-4.8); Lymphocytes % (A) 11 %; MCH 32.9 pg (25.0-35.0); MCHC 33.5 g/dL (31.0-37.0); MCV 98.2 fL (80.0-100.0); Mean Platelet Volume 7.2; Monocytes # (A) 0.4 k/uL (0-1.0); Monocytes % (A) 6 %; Neutrophils # (A) 5.7 k/uL (1.3-7.7); Neutrophils % (A) 79 %; Platelet Count 308 k/uL (150-450); RBC 5.32 m/uL (4.30-5.90); RDW 12.2 % (11.5-15.5); WBC 7.2 k/uL (3.8-10.6)
[2023-11-24 17:26] LABS: ALT 34 U/L (4-49); AST 41 U/L (17-59); African American GFR (CKD) >90 (>60 ml/min/1.73 sqM); Albumin 4.6 g/dL (3.5-5.0); Alkaline Phosphatase 75 U/L (38-126); Anion Gap 15 mmol/L; Blood Urea Nitrogen 8 mg/dL (9-20); Calcium 9.4 mg/dL (8.4-10.2); Carbon Dioxide 21 mmol/L (22-30); Chloride 104 mmol/L (98-107); Glucose 169 mg/dL (74-99); Non-African American GFR(CKD) 89 (>60 ml/min/1.73 sqM); Potassium 3.6 mmol/L (3.5-5.1); Sodium 140 mmol/L (137-145); Total Bilirubin 1.3 mg/dL (0.2-1.3); Total Protein 7.2 g/dL (6.3-8.2)
--- NOTE | 2023-11-24 17:33 | CT ---
EXAMINATION TYPE: CT abdomen pelvis wo con CT DLP: 427.4 mGycm, Automated exposure control for dose reduction was used. DATE OF EXAM: 11/24/2023 5:06 PM COMPARISON: CT abdomen pelvis most recent from CLINICAL INDICATION: Male, 58 years old with history of left flank pain, kidney stone suspected; left flank pain TECHNIQUE: Axial CT abdomen pelvis wo con;Sagittal and coronal reformats were created on a separate workstation. Contrast used: mL of , (none if empty) Oral contrast used: without Oral Contrast (none if empty) FINDINGS: LOWER CHEST: 5 mm left lower lobe pulmonary nodule stable back to 11/20/2019 ABDOMEN LIVER: Unremarkable GALLBLADDER AND BILE DUCTS: Unremarkable. PANCREAS: Unremarkable. SPLEEN: Unremarkable. ADRENAL GLANDS: Unremarkable. KIDNEYS AND URETERS: Mild left hydronephrosis secondary to a 5 mm ureteropelvic junction calculus. Ad ditional nonobstructing calculi on the left measuring up to 11 mm. Right 2 mm nonobstructive contrast . No right hydronephrosis.r PELVIS BLADDER: Unremarkable REPRODUCTIVE: Prostate is enlarged in size measuring 4.5 cm in transverse dimension. ABDOMEN & PELVIS STOMACH AND BOWEL: No evidence of bowel obstruction. PERITONEUM/RETROPERITONEUM: No evidence of pneumoperitoneum or free fluid. VASCULATURE: No evidence of aortic aneurysm. MUSCULOSKELETAL: No acute osseous abnormalities LYMPH NODES: No gross evidence for lymphadenopathy. SOFT TISSUE/ABDOMINAL WALL: Unremarkable IMPRESSION: 1. Mild left hydronephrosis secondary to a 5 mm ureteropelvic junction calculus , additional nonobst ructing calculi bilaterally. 2. Hepatic steatosis. 3. Prostatomegaly. 4. 5 mm left lower lobe pulmonary nodule. e stable back to 2019 and likely benign. [facility], Workstation: [id number], 11/24/2023 5:31 PM
[2023-11-24 17:47] LABS: Partial Thromboplastin Time 22.2 sec (22.0-30.0); Prothrombin Time 11.3 sec (10.0-12.5)
[2023-11-24] MEDS: METOCLOPRAMIDE 5 MG/ML 2 ML VIAL IVP STA (17:55)
[2023-11-24 18:36] LABS: Appearance,Urine Clear (Clear); Bacteria,Urine Rare /hpf; Bilirubin,Urine Negative (Negative); Blood,Urine Moderate (Negative); Color,Urine Colorless; Glucose,Urine (UA) Negative (Negative); Ketones,Urine 1+ (Negative); Leukocyte Esterase,Urine Negative (Negative); Mucus,Urine Rare /hpf; Nitrite,Urine Negative (Negative); Protein,Urine Negative (Negative); RBC,Urine 12 /hpf (0-5); Specific Gravity,Urine 1.008 (1.001-1.035); Urobilinogen,Urine <2.0 mg/dL (<2.0); WBC,Urine 1 /hpf (0-5)
[2023-11-24] MEDS: KETOROLAC 15 MG/ML 1 ML VIAL IVP STA (18:52)
[2023-11-24] MEDS: TAMSULOSIN 0.4 MG CAP.ER.24H PO STA (18:53)
[2023-11-24] MEDS: ACETAMINOPHEN IV (For NPO) 1,000 MG in EMPTY BAG 1 BAG IVPB STA (19:36)
[2023-11-24] MEDS: METOPROLOL TARTRATE 50 MG TAB PO STA (19:36)
[2023-11-24] MEDS: LOSARTAN 50 MG TAB PO STA (19:36)
[2023-11-24] MEDS ORDERED: HYDROmorphone 1 MG/ML 1 ML SYRINGE IVP PRN (19:41)
[2023-11-24] MEDS ORDERED: NALOXONE 0.4 MG/ML 1 ML VIAL IV PRN (19:41)
[2023-11-24] MEDS: SODIUM CHLORIDE 0.9% 1,000 ML IV SCH (21:11)
--- NOTE | 2023-11-25 04:31 | P.HPIM ---
History of Present Illness H&P Date: 11/24/23 Patient is a 58-year-old male with a PMH of hypertension, hyperlipidemia, CAD, and recurrent nephrolithiasis who presents to the emergency room with complaints of left-sided flank pain. Patient reports that he initially noticed the symptoms several days ago but that the worsened earlier today at around 2 PM when he developed 8 out of 10 left sided flank pain with radiation down towards the groin. Reports that the pain has improved to a 3 out of 10 at the time of interview. Also reports having some difficulty urinating earlier in the day which is now improved. Denies experiencing fever, chills, cough, nausea, vomiting, diarrhea. CT abdomen and pelvis in the emergency room revealed mild left-sided hydronephrosis secondary to a 5 mm UT junction calculus along with hepatic steatosis and prostatomegaly. Laboratory evaluation was remarkable for lactic acid of 4.2 with UA showing 12 RBCs and moderate blood with glucose 169. ED documentation reviewed and case discussed with ED provider. Review of systems: Pertinent positives and negatives as discussed in HPI, a complete review of sy stems was performed and all other systems are negative. Physical examination: Vital signs reviewed General: non toxic, no distress, appears at stated age, normal weight Derm: no unusual rashes/lesions, warm Head: atraumatic, normocephalic, symmetric Eyes: EOMI, no lid lag, anicteric sclera, pupils equal round reactive to light ENT: Nose and ears atraumatic Neck: No cervical lymphadenopathy, trachea midline, supple Mouth: no lip lesion, mucus membranes moist Cardiovascular: S1S2 reg, no murmur, positive dorsalis pedis pulse bilateral, no edema Lungs: CTA bilateral, no rhonchi, no rales, no accessory muscle use Abdominal: soft, nontender to palpation, no guarding Ext: muscle strength 5 out of 5 in all 4 extremities grossly, no gross muscle atrophy, no contractures, no CVA tenderness Neuro: CN II-XI grossly intact, no gross focal neuro deficits Psych: Alert, oriented, appropriate affect Assessment: Left-sided nephrolithiasis with mild hydronephrosis Lactic acidosis Chronic conditions: Hypertension, hyperlipidemia, CAD Imaging: CT abdomen and pelvis in the emergency room revealed mild left-sided hydronephrosis secondary to a 5 mm UT junction calculus along with hepatic steatosis and prostatomegaly. Data Review: Laboratory evaluation was remarkable for lactic acid of 4.2 with UA showing 12 RBCs and moderate blood with glucose 169. Plan: Urology consulted Continue with IV fluids with normal saline 130 cc/h Monitor lactic acid levels for resolution Resume home medications Pain control with dilaudid prn DVT prophylaxis: Lovenox subcu The patient is admitted with an anticipated less than 2 midnight stay for evaluation of nephrolithiasis CODE STATUS: Full Code Discussed with: Patient Anticipated discharge place: Home Past Medical History Past Medical History: Diabetes Mellitus, Hyperlipidemia, Hypertension, Myocardial Infarction ([place]), Sleep Apnea/CPAP/BIPAP Additional Past Medical History / Comment(s): kidney stones,no cpap,bowel obstruction,hx adhesion,loose stools since teenager,hemorrhoid Last Myocardial Infarction Date:: 09-23-2014 History of Any Multi-Drug Resistant Organisms: None Reported Past Surgical History: Heart Catheterization With Stent Additional Past Surgical History / Comment(s): bowel resection,2 surgeries for adhesions,heart stent x1, kidney stone removal, lithrotripsy Past Anesthesia/Blood Transfusion Reactions: No Reported Reaction Additional Past Anesthesia/Blood Transfusion Reaction / Comment(s): b/p was high after post op and took along time to come out of anesthesia w/ kidney stone procedure Nov 2017, hx of waking up during procedure,no hx blood transfusion Date of Last Stent Placement:: 09-23-2014 Past Psychological History: No Psychological Hx Reported Additional Psychological History / Comment(s): Pt resides with his spouse. He is independent. Smoking Status: Current every day smoker Past Alcohol Use History: Daily, Heavy Additional Past Alcohol Use History / Comment(s): started smoking at age 17 alittle over 0.5 ppd. Pt states he cut down on alcohol approximately 3-4 years ago and now drinks about every other day-apporximately 14 drinks per week. Past Drug Use History: Marijuana Additional Drug Use History / Comment(s): rare marijuana use. - Past Family History Mother Family Medical History: No Reported History Father Family Medical History: CVA/TIA, Hyperlipidemia, Hypertension Medications and Allergies Home Medications Medication Instructions Recorded Confirmed Type Isosorbide Mononitrate [Isosorbide 30 mg PO DAILY 02/14/17 11/24/23 History Mononitrate ER] Aspirin [Adult Low Dose Aspirin EC] 81 mg PO DAILY 11/20/17 11/24/23 History Losartan [Cozaar] 50 mg PO DAILY 11/24/23 11/24/23 History Metoprolol Tartrate [Lopressor] 50 mg PO BID 11/24/23 11/24/23 History Ticagrelor [Brilinta] 90 mg PO BID 11/24/23 11/24/23 History icosapent ethyL [Icosapent Ethyl] 2 gm PO BID 11/24/23 11/24/23 History Allergies Allergy/AdvReac Type Severity Reaction Status Date / Time codeine AdvReac Vomiting Verified 11/24/23 19:59 morphine AdvReac Nausea & Verified 11/24/23 19:59 Vomiting Physical Exam Vitals: Vital Signs Temp Pulse Pulse Resp BP BP Pulse Ox 11/24/23 20:36 65 18 11/24/23 20:24 73 18 153/94 100 11/24/23 20:00 98.6 F 65 12 161/89 96 11/24/23 19:30 88 18 150/117 95 11/24/23 18:34 184/109 11/24/23 17:09 79 16 194/111 94 L 11/24/23 16:19 98 F 77 18 182/104 99 Intake and Output 11/24/23 11/24/23 11/25/23 14:59 22:59 06:59 Other: Voiding Method Toilet Urinal Weight 70.307 kg Results CBC & Chem 7: 11/24/23 17:05 11/24/23 17:05 Labs: Abnormal Lab Results - Last 24 Hours (Table) 11/24/23 11/24/23 11/24/23 Range/Units 17:05 17:05 17:05 Lymphocytes # 0.8 L (1.0-4.8) k/uL Carbon Dioxide 21 L (22-30) mmol/L BUN 8 L (9-20) mg/dL Glucose 169 H (74-99) mg/dL Plasma Lactic Acid Vinny 4.2 H* (0.7-2.0) mmol/L Urine Ketones (Negative) Urine Blood (Negative) Urine RBC (0-5) /hpf Urine Bacteria (None) /hpf Urine Mucus (None) /hpf 11/24/23 Range/Units 17:05 Lymphocytes # (1.0-4.8) k/uL Carbon Dioxide (22-30) mmol/L BUN (9-20) mg/dL Glucose (74-99) mg/dL Plasma Lactic Acid Vinny (0.7-2.0) mmol/L Urine Ketones 1+ H (Negative) Urine Blood Moderate H (Negative) Urine RBC 12 H (0-5) /hpf Urine Bacteria Rare H (None) /hpf Urine Mucus Rare H (None) /hpf Thrombosis Risk Factor Assmnt - Choose All That Apply Any of the Below Risk Factors Present?: Yes Each Factor Represents 1 point: Age 41-60 years Other Risk Factors: No Other congenital or acquired thrombophilia - If yes, enter type in comment: No Thrombosis Risk Factor Assessment Total Risk Factor Score: 1 Thrombosis Risk Factor Assessment Level: Low Risk
[2023-11-25] MEDS: ASPIRIN 81 MG PO SCH (09:36)
[2023-11-25] MEDS: LOSARTAN 50 MG TAB PO SCH (09:36)
[2023-11-25] MEDS: METOPROLOL TARTRATE 50 MG TAB PO SCH (09:36)
[2023-11-25] MEDS: ENOXAPARIN 40 MG/0.4 ML SYRINGE SQ SCH (09:37)
[2023-11-25] MEDS: TICAGRELOR 90 MG TAB PO SCH (09:37)
[2023-11-25] MEDS: ISOSORBIDE MONONITRATE ER 30 MG TAB.ER.24H PO SCH (09:37)
[2023-11-25] MEDS: PATIENT'S OWN (Icosapent Ethyl [Icosapent Ethyl] 1 GM Capsule) PO SCH (09:39)
[2023-11-25] MEDS ORDERED: LORazepam 1 MG TAB PO PRN ×2 (09:48)
[2023-11-25] MEDS ORDERED: LORazepam 0.5 MG TAB PO PRN (09:48)
--- NOTE | 2023-11-25 10:05 | P.GSCN ---
History of Present Illness Consult date: 11/25/23 History of present illness: 58-year-old gentleman with a history of uric acid urolithiasis known to me for previous surgical procedures. He presents with severe left ureteral colic. He had a CT scan identifying a 5 to 7 mm proximal ureteral stone +2 renal stones 1 at 11 mm and the other 2 mm. He is feeling better this morning. The stone pain has not significantly changed but he is not having much pain at this point in time. There is no fever or chills. There is no gross hematuria. Review of Systems All systems: negative - Constitutional Denies fever, Denies weight loss - EENT Eyes: denies blurred vision Ears, nose, mouth and throat: Denies dysphagia - Cardiovascular Denies chest pain, Denies shortness of breath - Respiratory Denies cough, Denies 7 - Gastrointestinal Reports as per HPI - Genitourinary Denies dysuria, Denies hematuria - Integumentary Denies rash, Denies unusual bruising - Neurological Denies headaches, Denies syncope - Hematologic/Lymphatic Denies easy bleeding, Denies easy bruising Past Medical History Past Medical History: Diabetes Mellitus, Hyperlipidemia, Hypertension, Myocardial Infarction ([place]), Sleep Apnea/CPAP/BIPAP Additional Past Medical History / Comment(s): kidney stones,no cpap,bowel obstruction,hx adhesion,loose stools since teenager,hemorrhoid Last Myocardial Infarction Date:: 09-23-2014 History of Any Multi-Drug Resistant Organisms: None Reported Past Surgical History: Heart Catheterization With Stent Additional Past Surgical History / Comment(s): bowel resection,2 surgeries for adhesions,heart stent x1, kidney stone removal, lithrotripsy Past Anesthesia/Blood Transfusion Reactions: No Reported Reaction Additional Past Anesthesia/Blood Transfusion Reaction / Comm: b/p was high after post op and took along time to come out of anesthesia w/ kidney stone procedure Nov 2017, hx of waking up during procedure,no hx blood transfusion Date of Last Stent Placement:: 09-23-2014 Past Psychological History: No Psychological Hx Reported Additional Psychological History / Comment(s): Pt resides with his spouse. He is independent. Smoking Status: Current every day smoker Past Alcohol Use History: Daily, Heavy Additional Past Alcohol Use History / Comment(s): started smoking at age 17 alittle over 0.5 ppd. Pt states he cut down on alcohol approximately 3-4 years ago and now drinks about every other day-apporximately 14 drinks per week. Past Drug Use History: Marijuana Additional Drug Use History / Comment(s): rare marijuana use. - Past Family History Mother Family Medical History: No Reported History Father Family Medical History: CVA/TIA, Hyperlipidemia, Hypertension Medications and Allergies Home Medications Medication Instructions Recorded Confirmed Type Isosorbide Mononitrate [Isosorbide 30 mg PO DAILY 02/14/17 11/24/23 History Mononitrate ER] Aspirin [Adult Low Dose Aspirin EC] 81 mg PO DAILY 11/20/17 11/24/23 History Losartan [Cozaar] 50 mg PO DAILY 11/24/23 11/24/23 History Metoprolol Tartrate [Lopressor] 50 mg PO BID 11/24/23 11/24/23 History Ticagrelor [Brilinta] 90 mg PO BID 11/24/23 11/24/23 History icosapent ethyL [Icosapent Ethyl] 2 gm PO BID 11/24/23 11/24/23 History Allergies Allergy/AdvReac Type Severity Reaction Status Date / Time codeine AdvReac Vomiting Verified 11/24/23 19:59 morphine AdvReac Nausea & Verified 11/24/23 19:59 Vomiting Surgical - Exam Vital Signs Temp Pulse Resp BP Pulse Ox 98 F 77 18 182/104 99 11/24/23 16:19 11/24/23 16:19 11/24/23 16:19 11/24/23 16:19 11/24/23 16:19 - General well developed, well nourished, no distress - Eyes normal ocular movement, no icteric - ENT no hearing loss, no congestion - Neck no masses, trachea midline - Respiratory normal respiratory effort, clear to auscultation - Abdomen Abdomen: soft, non tender, no guarding, no rigid, no rebound - Integumentary no rash, no abnormal pigmentation - Neurologic no disoriented, no combative - Psychiatric oriented to time, oriented to person, oriented to place, speech is normal, memory intact Results - Labs 11/24/23 17:05 11/24/23 17:05 Abnormal Lab Results - Last 24 Hours (Table) 11/24/23 11/24/23 11/24/23 Range/Units 17:05 17:05 17:05 Lymphocytes # 0.8 L (1.0-4.8) k/uL Carbon Dioxide 21 L (22-30) mmol/L BUN 8 L (9-20) mg/dL Glucose 169 H (74-99) mg/dL Plasma Lactic Acid Vinny 4.2 H* (0.7-2.0) mmol/L Urine Ketones (Negative) Urine Blood (Negative) Urine RBC (0-5) /hpf Urine Bacteria (None) /hpf Urine Mucus (None) /hpf 11/24/23 Range/Units 17:05 Lymphocytes # (1.0-4.8) k/uL Carbon Dioxide (22-30) mmol/L BUN (9-20) mg/dL Glucose (74-99) mg/dL Plasma Lactic Acid Vinny (0.7-2.0) mmol/L Urine Ketones 1+ H (Negative) Urine Blood Moderate H (Negative) Urine RBC 12 H (0-5) /hpf Urine Bacteria Rare H (None) /hpf Urine Mucus Rare H (None) /hpf Diabetes panel 11/24/23 Range/Units 17:05 Sodium 140 (137-145) mmol/L Potassium 3.6 (3.5-5.1) mmol/L Chloride 104 (98-107) mmol/L Carbon Dioxide 21 L (22-30) mmol/L BUN 8 L (9-20) mg/dL Creatinine 0.94 (0.66-1.25) mg/dL Glucose 169 H (74-99) mg/dL Calcium 9.4 (8.4-10.2) mg/dL AST 41 (17-59) U/L ALT 34 (4-49) U/L Alkaline Phosphatase 75 (38-126) U/L Total Protein 7.2 (6.3-8.2) g/dL Albumin 4.6 (3.5-5.0) g/dL Calcium panel 11/24/23 Range/Units 17:05 Calcium 9.4 (8.4-10.2) mg/dL Albumin 4.6 (3.5-5.0) g/dL Pituitary panel 11/24/23 Range/Units 17:05 Sodium 140 (137-145) mmol/L Potassium 3.6 (3.5-5.1) mmol/L Chloride 104 (98-107) mmol/L Carbon Dioxide 21 L (22-30) mmol/L BUN 8 L (9-20) mg/dL Creatinine 0.94 (0.66-1.25) mg/dL Glucose 169 H (74-99) mg/dL Calcium 9.4 (8.4-10.2) mg/dL Adrenal panel 11/24/23 Range/Units 17:05 Sodium 140 (137-145) mmol/L Potassium 3.6 (3.5-5.1) mmol/L Chloride 104 (98-107) mmol/L Carbon Dioxide 21 L (22-30) mmol/L BUN 8 L (9-20) mg/dL Creatinine 0.94 (0.66-1.25) mg/dL Glucose 169 H (74-99) mg/dL Calcium 9.4 (8.4-10.2) mg/dL Total Bilirubin 1.3 (0.2-1.3) mg/dL AST 41 (17-59) U/L ALT 34 (4-49) U/L Alkaline Phosphatase 75 (38-126) U/L Total Protein 7.2 (6.3-8.2) g/dL Albumin 4.6 (3.5-5.0) g/dL - Imaging CT scan - abdomen: report reviewed, image reviewed CT scan - pelvis: report reviewed, image reviewed Assessment and Plan Assessment: Impression: Left ureteral calculus, 6 mm with colic. Left renal stones. Uric acid urolithiasis Recommendations: I will observe the patient in the next 24 hours. If his pain goes away then he will try to pass it as an outpatient. If his pain persists I will set him up for ureteroscopy and laser lithotripsy. At a later date he will probably undergo a percutaneous nephrostolithotomy to remove the left renal stones.
[2023-11-25 10:06] LABS: HCT 45.1 % (39.0-53.0); HGB 15.3 gm/dL (13.0-17.5); MCH 33.3 pg (25.0-35.0); Mean Platelet Volume 7.5; Platelet Count 242 k/uL (150-450); RBC 4.61 m/uL (4.30-5.90); RDW 12.6 % (11.5-15.5); WBC 6.6 k/uL (3.8-10.6)
[2023-11-25 10:15] LABS: African American GFR (CKD) >90 (>60 ml/min/1.73 sqM); Anion Gap 7 mmol/L; Blood Urea Nitrogen 10 mg/dL (9-20); Calcium 8.5 mg/dL (8.4-10.2); Carbon Dioxide 22 mmol/L (22-30); Chloride 111 mmol/L (98-107); Glucose 206 mg/dL (74-99); Magnesium 1.6 mg/dL (1.6-2.3); Non-African American GFR(CKD) 89 (>60 ml/min/1.73 sqM); Potassium 3.6 mmol/L (3.5-5.1); Sodium 140 mmol/L (137-145)
[2023-11-25] MEDS: THIAMINE 100 MG TAB PO SCH (10:31)
[2023-11-25] MEDS: FOLIC ACID 1 MG TAB PO SCH (10:31)
[2023-11-25] MEDS: MULTIVITAMINS, THERA 1 EACH TAB PO SCH (10:31)
[2023-11-25] MEDS: HYDROmorphone 0.5 MG/0.5 ML SYRINGE IVP PRN (10:54)
[2023-11-25] MEDS: ONDANSETRON 4 MG/2 ML VIAL IVP PRN (13:44)
[2023-11-25] MEDS: LORazepam 2 MG/ML INJ IV STA (14:33)
--- NOTE | 2023-11-25 18:14 | P.PN ---
Subjective Progress Note Date: 11/25/23 Hospital course: Patient is a 58-year-old male with a past medical history of CAD stenting, hypertension, hyperlipidemia, recurrent kidney stones, bowel obstruction status post resection, daily alcohol abuse drinking approximately 8-10 shots of vodka daily, nicotine dependence, cannabinoid use. He presented to the emergency department on 11/24/2023 with a chief complaint of left-sided flank pain. Upon arrival to our facility, patient underwent evaluation in the emergency department. Vital signs upon arrival show blood pressure 182/104, heart rate 77, respiratory rate 18, temp 98.0 F, and SpO2 of 99% on room air. Labs completed and reviewed. CBC unremarkable. Coagulation profile normal findings. BMP showing high anion gap metabolic acidosis with chloride of 104, bicarb of 21, and anion gap of 15. Blood glucose 169. Lactic acid 4.2. Urinalysis positive for ketones and blood with 12 RBCs but negative for infection. CT ab domen and pelvis showing mild left hydronephrosis secondary to a 5 mm ureteropelvic junction calculus and additional nonobstructing calculi bilaterally, hepatic steatosis, and prostamegaly. Patient admitted under our services with consultation to urology. Physical exam: Patient seen and fully evaluated at bedside this morning. He reports continued pain to left flank unchanged at this time. He denies having any associated symptoms including nausea, vomiting, diaphoresis, or difficulties with urination. Patient reports he was retaining urine and was straight catheterize last night resulting in mild burning with urination but states resolved after a short while. Vital signs reviewed and stable. General: Nontoxic, no distress and appears stated age. Derm: Skin warm and dry, normal coloration for ethnicity. Head: Atraumatic, normocephalic and symmetric. Eyes: EOM's intact, no lid lag, and anicteric sclera Mouth: no lip lesions, mucus membranes moist Cardiovascular: regular rate and rhythm with normal S1S2, no murmur, positive posterior tibial pulses bilaterally, and cap refill < 2 seconds. Lungs: Respirations even, regular, and unlabored on room air. Lungs CTA bilaterally, no rhonchi, no rales, no wheezing, and no accessory muscle usage. Abdominal: soft, nontender to palpation, no guarding, no appreciable organomegaly Ext: ROM intact. No gross muscle atrophy, no edema, no contractures Neuro: Speech clear, face symmetrical and CN II-XII grossly intact with no noted focal neuro deficits. Mild resting tremors noted on examination. Psych: Alert and oriented to person, place, time, and situation. Appropriate and pleasant affect. Assessment and Plan of Care: Left-sided nephrolithiasis with hydronephrosis Lactic acidosis, resolved -Continue symptomatic care and pain management with Dilaudid 0.5 mg as needed for mild to moderate pain and Dilaudid 1 mg IVP every 3 hours for severe pain. -Urology consulted, discussed plan of care with Dr. Townsend recommending monitoring patient for an additional 24 hours to determine if patient will require ureteroscopy with laser lithotripsy versus discharge and undergo percutaneous nephrostolithotomy to remove the left renal stones. -Continue monitoring I's and O's. -Continue gentle IV fluid hydration with 0.9% normal saline at 75 cc/h. -Continue Flomax 0.4 mg nightly. Alcohol withdraw in active alcoholic -Order placed for monitoring of CIWA scores and patient to be medicated with Ativan 0.5 mg every 4 hours as needed for CIWA score of 4-5, Ativan 1 mg every 4 hours for CIWA score of 6-7, Ativan 2 mg every 3 hours CIWA score of 8-9, and Ativan 2 mg every 2 hours forr CIWA score of 10 or greater. -Continuous IV hydration with normal saline at 75 cc/h. -Thiamine 100 mg daily, and Multivitamin daily, and Folate 1 mg daily -Seizure, fall, aspiration, and elopement precautions in place. -Continued close monitoring of electrolytes and replace as needed. -Telemetry monitoring. Hypomagnesemia -Magnesium 1.6 orders placed for magnesium sulfate 2 g IVPB. CAD with previous stenting Hypertension Hyperlipidemia -Continue dual antiplatelet therapy with aspirin 81 mg daily and Brilinta 90 mg twice daily. Continue losartan 50 mg daily, isosorbide mononitrate 30 mg daily, and metoprolol 50 mg twice daily. Data and imaging reviewed: -Labs completed and reviewed. CBC unremarkable. BMP showing hyperchloremia chloride of 111 otherwise normal findings. Blood glucose 206. Repeat lactate 1.5. Magnesium slightly low at 1.6. -Vital signs reviewed. Blood pressure 145/75, heart rate 80, respiratory rate 20, temp 98.3 F, and SpO2 of 97% on room air. CODE STATUS: Full code DVT prophylaxis: Lovenox Anticipated discharge date: Pending clinical course Anticipated discharge place: Home Patient was seen independently by Nurse Pracitioner. This document was prepared using [employer] dictation software. Please allow for errors in chief specialist leed, while rare they do occur. . I reviewed the documentation as provided by the NAKUL above, who is the original author of this note. I agree with the documented assessment and plan, with the following changes: none Objective - Vital Signs Vital signs: Vital Signs Temp 98.3 F 11/25/23 07:36 Pulse 80 11/25/23 07:36 Resp 20 11/25/23 07:36 BP 145/75 11/25/23 07:36 Pulse Ox 97 11/25/23 07:36 FiO2 Intake & Output 11/24/23 11/25/23 11/25/23 18:59 06:59 18:59 Intake Total 240 Output Total 200 Balance 40 Weight 70.307 kg 70.307 kg Intake: Oral 240 Output: Urine 200 Other: Voiding Method Toilet Urinal - Labs CBC & Chem 7: 11/25/23 09:31 11/25/23 09:31 Labs: Abnormal Lab Results - Last 24 Hours (Table) 11/24/23 11/24/23 11/24/23 Range/Units 17:05 17:05 17:05 Lymphocytes # 0.8 L (1.0-4.8) k/uL Carbon Dioxide 21 L (22-30) mmol/L BUN 8 L (9-20) mg/dL Glucose 169 H (74-99) mg/dL Plasma Lactic Acid Vinny 4.2 H* (0.7-2.0) mmol/L Urine Ketones (Negative) Urine Blood (Negative) Urine RBC (0-5) /hpf Urine Bacteria (None) /hpf Urine Mucus (None) /hpf 11/24/23 Range/Units 17:05 Lymphocytes # (1.0-4.8) k/uL Carbon Dioxide (22-30) mmol/L BUN (9-20) mg/dL Glucose (74-99) mg/dL Plasma Lactic Acid Vinny (0.7-2.0) mmol/L Urine Ketones 1+ H (Negative) Urine Blood Moderate H (Negative) Urine RBC 12 H (0-5) /hpf Urine Bacteria Rare H (None) /hpf Urine Mucus Rare H (None) /hpf
[2023-11-25] MEDS: MAGNESIUM SULFATE-D5W PMX 1 GM in DEXTROSE/WATER 1 100ML.BAG IVPB SCH (18:15)
[2023-11-25] MEDS: TAMSULOSIN 0.4 MG CAP.ER.24H PO SCH (18:31)
[2023-11-25] MEDS: MELATONIN 5 MG TABLET PO SCH (22:55)
[2023-11-26] MEDS: LORazepam 1 MG TAB PO PRN ×2 (08:05→20:59)
[2023-11-26 08:43] LABS: HCT 40.9 % (39.6-50.0); HGB 13.8 g/dL (13.0-17.0); MCH 33.2 pg (27.0-32.0); MCHC 33.7 g/dL (32.0-37.0); MCV 98.3 FL (80.0-97.0); Mean Platelet Volume 9.6 FL (9.5-12.2); NRBC Per 100 WBC 0 X 10*3/uL (0.00-0.01); Platelet Count 216 X 10*3/uL (140-440); RBC 4.16 X 10*6/uL (4.40-5.60); RDW 12.2 % (11.5-14.5); WBC 6.18 X 10*3/uL (4.50-10.00)
[2023-11-26 08:53] LABS: Blood Urea Nitrogen 7.5 mg/dL (9.0-27.0); Calcium 8.3 mg/dL (8.7-10.3); Carbon Dioxide 22.1 mmol/L (21.6-31.8); Chloride 110 mmol/L (96-109); Glucose 116 mg/dL (70-110); Magnesium 2.2 mg/dL (1.5-2.4); Potassium 3.8 mmol/L (3.5-5.5); Sodium 143 mmol/L (135-145)
[2023-11-26] MEDS: IV FLUID CONTINUATION 1,000 ML IV ONE (14:08)
[2023-11-26 14:28] LABS: Glucose,Whole Blood 108 mg/dL (70-110)
[2023-11-26] MEDS: DEXAMETHASONE SOD PHOSPHATE 4 MG/ML 1 ML VIAL IVP STA (14:28)
[2023-11-26] MEDS ORDERED: MIDAZOLAM 2 MG/2 ML VIAL ONE (15:01)
[2023-11-26] MEDS ORDERED: SUCCINYLCHOLINE CHLORIDE 200 MG/10 ML VIAL IV ONE (15:01)
[2023-11-26] MEDS ORDERED: LIDOCAINE 1% INJ 10MG/ML (20 ML MDV) ONE (15:01)
[2023-11-26] MEDS ORDERED: fentaNYL (PF) 50 MCG/ML 2 ML AMP ONE (15:01)
[2023-11-26] MEDS ORDERED: PROPOFOL 10 MG/ML 20 ML VIAL IV ONE (15:01)
[2023-11-26] MEDS: LACTATED RINGERS 1,000 ML IV ONE (16:08)
--- NOTE | 2023-11-26 16:19 | P.OP ---
Date of Procedure: 11/26/23 Preoperative Diagnosis: left ureteral and renal calculi Postoperative Diagnosis: same Procedure(s) Performed: cystoscopy, left ureteroscopy and renoscopy with laser lithotripsy, placement of [id number] stent Anesthesia: WILDER Surgeon: Jordan Townsend Estimated Blood Loss (ml): 10 Pathology: other (stone) Condition: stable Disposition: PACU Indications for Procedure: patient is 58. He presents with a 76-7 mm proximal ureteral stone. He also has a 11 mm upper pole stone and a 2 mm left lower pole stone. The patient's colic persisted such that he stated in the hospital over the weekend. We have very long discussion about treatment options. The plan is to remove the ureteral stone today and then a later date do percutaneous nephrostolithotomy to the left renal stones. He does not wish me to go at the left kidney stonestoday as he is afraid of passing the fragments. Description of Procedure: patient brought to the operating suite. Given a general anesthetic. Prepped and draped sterilely. with a 21-Faroese sheath and Foroblique lens the urethra was intubated. The anterior urethra and normal prostatic urethra was not obstructing. The bladder varela inspected the ureter normal the bladder mucosa is unremarkable. An 035 wires passed up the left ureter by the ureteral stone faintly seen in the upper ureter. His previous stones of an uric acid. Over the wires passed [id number]-Wggilh reentry sheath. The inner sheath is removed. I passed the flexible ureteroscope up to the stone. With the 275 laser probe the stone is broken into tiny fragments with a stephenson of energy. The largest fragments are basketed. I then inspect proximal to the stone in the larger upper pole stone was floated down in the proximal ureter also. I thus elected break the stone up with the same laser probe. I followed the fragments back up into the kidney. All the fragments are less than a millimeter. I basket the largest fragments. I then identify the 2 mm stone and break it up. Then the procedure there no significant fragments. Due to the extensive work a stent will be placed. An 035 wiresis passed through the ureteroscope. It is backloaded onto the cystoscope. Over the wire is then passed a 6 x 24 double-J catheter that coils in the renal pelvis and in the bladder. The bladder is drained the patient is awakened and returned recovery room good condition. He tolerated procedure and will be returned to the floor upon recovery.
--- NOTE | 2023-11-26 16:27 | P.PN ---
Subjective Progress Note Date: 11/26/23 Hospital course: Patient is a 58-year-old male with a past medical history of CAD stenting, hypertension, hyperlipidemia, recurrent kidney stones, bowel obstruction status post resection, daily alcohol abuse drinking approximately 8-10 shots of vodka daily, nicotine dependence, cannabinoid use. He presented to the emergency department on 11/24/2023 with a chief complaint of left-sided flank pain. Upon arrival to our facility, patient underwent evaluation in the emergency department. Vital signs upon arrival show blood pressure 182/104, heart rate 77, respiratory rate 18, temp 98.0 F, and SpO2 of 99% on room air. Labs completed and reviewed. CBC unremarkable. Coagulation profile normal findings. BMP showing high anion gap metabolic acidosis with chloride of 104, bicarb of 21, and anion gap of 15. Blood glucose 169. Lactic acid 4.2. Urinalysis positive for ketones and blood with 12 RBCs but negative for infection. CT ab domen and pelvis showing mild left hydronephrosis secondary to a 5 mm ureteropelvic junction calculus and additional nonobstructing calculi bilaterally, hepatic steatosis, and prostamegaly. Patient admitted under our services with consultation to urology. Physical exam: Patient seen and fully evaluated at bedside this morning. He is currently exhibiting symptoms of alcohol withdrawal. Patient tremulous and having auditory hallucinations and confusion. Patient also reports worsening pain left flank. Patient's at bedside. Vital signs reviewed and stable. General: Nontoxic, no distress and appears stated age. Derm: Skin warm and dry, normal coloration for ethnicity. Head: Atraumatic, normocephalic and symmetric. Eyes: EOM's intact, no lid lag, and anicteric sclera Mouth: no lip lesions, mucus membranes moist Cardiovascular: regular rate and rhythm with normal S1S2, no murmur, positive posterior tibial pulses bilaterally, and cap refill < 2 seconds. Lungs: Respirations even, regular, and unlabored on room air. Lungs CTA bilaterally, no rhonchi, no rales, no wheezing, and no accessory muscle usage. Abdominal: soft, nontender to palpation, no guarding, no appreciable organomegaly Ext: ROM intact. No gross muscle atrophy, no edema, no contractures Neuro: Speech clear, face symmetrical and CN II-XII grossly intact with no noted focal neuro deficits. Mild resting tremors noted on examination. Psych: Alert and oriented to person, place, time, however confused to situation. Anxious and fidgety. Patient having auditory hallucinations. Assessment and Plan of Care: Left-sided nephrolithiasis with hydronephrosis Lactic acidosis, resolved -Continue symptomatic care and pain management with Dilaudid 0.5 mg as needed for mild to moderate pain and Dilaudid 1 mg IVP every 3 hours for severe pain. -Urology consulted, discussed plan of care with Dr. Townsend stating he is planning to take patient for cystoscopy with laser lithotripsy and stent placement later this afternoon.. -Continue monitoring I's and O's. -Continue gentle IV fluid hydration with 0.9% normal saline at 75 cc/h. -Continue Flomax 0.4 mg nightly. Alcohol withdraw in active alcoholic -Continue monitoring of CIWA scores and patient to be medicated with Ativan 0.5 mg every 4 hours as needed for CIWA score of 4-5, Ativan 1 mg every 4 hours for CIWA score of 6-7, Ativan 2 mg every 3 hours CIWA score of 8-9, and Ativan 2 mg every 2 hours forr CIWA score of 10 or greater. Current CIWA score is 10. -Continuous IV hydration with normal saline at 75 cc/h. -Thiamine 100 mg daily, and Multivitamin daily, and Folate 1 mg daily -Seizure, fall, aspiration, and elopement precautions in place. -Continued close monitoring of electrolytes and replace as needed. -Telemetry monitoring. Hypomagnesemia -Magnesium 1.6 orders placed for magnesium sulfate 2 g IVPB. CAD with previous stenting Hypertension Hyperlipidemia -Continue dual antiplatelet therapy with aspirin 81 mg daily and Brilinta 90 mg twice daily. Continue losartan 50 mg daily, isosorbide mononitrate 30 mg daily, and metoprolol 50 mg twice daily. Data and imaging reviewed: -Labs completed and reviewed. CBC showing no significant abnormalities. BMP showing mild hyperchloremia with chloride of 110 otherwise normal findings. Blood glucose 116. Magnesium 2.2. -Vital signs reviewed. Blood pressure 161/89, heart rate 66, respiratory rate 18, temp 98.5 F, and SpO2 of 96% on room air. CODE STATUS: Full code DVT prophylaxis: Lovenox Anticipated discharge date: Pending clinical course Anticipated discharge place: Home Patient was seen independently by Nurse Pracitioner. This document was prepared using [employer] dictation software. Please allow for errors in executive coach, while rare they do occur. . I reviewed the documentation as provided by the NAKUL above, who is the original author of this note. I agree with the documented assessment and plan, with the following changes: none Objective - Vital Signs Vital signs: Vital Signs Temp 98.5 F 11/26/23 08:00 Pulse 66 11/26/23 08:00 Resp 18 11/26/23 08:00 BP 161/89 11/26/23 08:00 Pulse Ox 96 11/26/23 08:00 FiO2 Intake & Output 11/25/23 11/26/23 11/26/23 18:59 06:59 18:59 Intake Total 1198 1360 Balance 1198 1360 Intake: Intake, IV Titration 1000 Amount Magnesium Sulfate-D5w Pmx 100 1 gm In Dextrose/Water 1 100ml.bag @ 100 mls/hr IVPB Q1H [facility] Rx#: [id number] Sodium Chloride 0.9% 1, 900 000 ml @ 75 mls/hr IV . [id number] [facility] Rx#:[id number] Oral 1198 360 Other: Voiding Method Toilet Toilet # Voids 1 1 - Labs CBC & Chem 7: 11/26/23 05:31 11/26/23 05:31 Labs: Abnormal Lab Results - Last 24 Hours (Table) 11/25/23 11/26/23 Range/Units 09:31 05:31 RBC 4.16 L (4.40-5.60) X 10*6/uL MCV 98.3 H (80.0-97.0) FL MCH 33.2 H (27.0-32.0) pg Chloride 111 H (98-107) mmol/L Glucose 206 H (74-99) mg/dL
--- NOTE | 2023-11-26 16:28 | FL ---
EXAMINATION TYPE: FL guidance operating room DATE OF EXAM: 11/26/2023 4:24 PM COMPARISON: Pre Operative Images if available both CT/MRI or plain film CLINICAL INDICATION: Male, 58 years old with history of RENAL CALCULUS; TECHNIQUE: FL guidance operating room, multiple fluoroscopic images provided for procedure. Total fluoroscopy time: 15 seconds Total submitted images to PACS: 1 DAP: 1.4966 mGym2 Gycm2 uGym2 cGycm2 or equivalent. FINDINGS: Multiple intraoperative fluoroscopic images were taken resulting in ureteral stent placement with sup erior pigtail in appropriate position projecting over the renal pelvis. No immediate intraoperative c omplication. Multilevel degeneration changes throughout the spine. IMPRESSION: 1. No evidence for intraoperative complication. 2. Please see the operative/procedural note for further details. [facility], , 11/26/2023 4:26 PM
[2023-11-26 16:31] LABS: Glucose,Whole Blood 132 mg/dL (70-110)
--- NOTE | 2023-11-27 07:56 | P.PN ---
Subjective Progress Note Date: 11/27/23 the patient underwent cystoscopy with left ureteroscopy and renoscopy with laser lithotripsy and stent placement yesterday. He is doing well. His pain is gone. From a urologic standpoint he can be discharged home today. I like to see him in the office in one week for cystoscopy and stent removal. He will resume his potassium citrate 2 tablets 3 times daily. Objective - Vital Signs Vital signs: Vital Signs Temp 98.4 F 11/27/23 02:50 Pulse 85 11/27/23 02:50 Resp 14 11/27/23 02:50 BP 159/90 11/27/23 02:50 Pulse Ox 85 L 11/27/23 02:50 FiO2 Intake & Output 11/26/23 11/27/23 11/27/23 18:59 06:59 18:59 Intake Total 1925 240 Output Total 10 600 200 Balance 1915 -360 -200 Intake: IV 1250 Intake, IV Titration 675 Amount Sodium Chloride 0.9% 1, 675 000 ml @ 75 mls/hr IV . [id number] [facility] Rx#:[id number] Oral 240 Output: Urine 600 200 Estimated Blood Loss 10 Other: Voiding Method Toilet Urinal # Voids 2 - Labs CBC & Chem 7: 11/26/23 05:31 11/26/23 05:31 Labs: Abnormal Lab Results - Last 24 Hours (Table) 11/26/23 11/26/23 11/26/23 Range/Units 05:31 05:31 16:29 RBC 4.16 L (4.40-5.60) X 10*6/uL MCV 98.3 H (80.0-97.0) FL MCH 33.2 H (27.0-32.0) pg Chloride 110 H (96-109) mmol/L BUN 7.5 L (9.0-27.0) mg/dL BUN/Creatinine Ratio 7.50 L (12.00-20.00) Ratio Glucose 116 H (70-110) mg/dL POC Glucose (mg/dL) 132 H (70-110) mg/dL Calcium 8.3 L (8.7-10.3) mg/dL
[2023-11-27 08:39] LABS: HCT 42.7 % (39.6-50.0); HGB 14.1 g/dL (13.0-17.0); MCH 32.4 pg (27.0-32.0); MCV 98.2 FL (80.0-97.0); Magnesium 1.9 mg/dL (1.5-2.4); Mean Platelet Volume 9.6 FL (9.5-12.2); NRBC Per 100 WBC 0 X 10*3/uL (0.00-0.01); Platelet Count 197 X 10*3/uL (140-440); RBC 4.35 X 10*6/uL (4.40-5.60); RDW 12.1 % (11.5-14.5); WBC 9.37 X 10*3/uL (4.50-10.00)
[2023-11-27 08:47] LABS: ALT 17 U/L (10-49); AST 26 U/L (14-35); Albumin 3.5 g/dL (3.8-4.9); Albumin/Globulin Ratio 1.94 Ratio (1.60-3.17); Alkaline Phosphatase 65 U/L (41-126); BUN/Creat Ratio 9.56 Ratio (12.00-20.00); Blood Urea Nitrogen 8.6 mg/dL (9.0-27.0); Calcium 8.4 mg/dL (8.7-10.3); Carbon Dioxide 20.9 mmol/L (21.6-31.8); Chloride 112 mmol/L (96-109); Globulin 1.8 g/dL (1.6-3.3); Glucose 178 mg/dL (70-110); Potassium 4.4 mmol/L (3.5-5.5); Sodium 144 mmol/L (135-145); Total Bilirubin 0.5 mg/dL (0.3-1.2); Total Protein 5.3 g/dL (6.2-8.2)
[2023-11-27] MEDS: ACETAMINOPHEN TAB 325 MG TAB PO PRN (11:56)
[2023-11-27] MEDS: MORPHINE SULFATE 4 MG/ML SYRINGE IVP PRN (14:33)
--- NOTE | 2023-11-27 17:14 | P.PN ---
Subjective Progress Note Date: 11/27/23 Hospital course: Patient is a 58-year-old male with a past medical history of CAD stenting, hypertension, hyperlipidemia, recurrent kidney stones, bowel obstruction status post resection, daily alcohol abuse drinking approximately 8-10 shots of vodka daily, nicotine dependence, cannabinoid use. He presented to the emergency department on 11/24/2023 with a chief complaint of left-sided flank pain. Upon arrival to our facility, patient underwent evaluation in the emergency department. Vital signs upon arrival show blood pressure 182/104, heart rate 77, respiratory rate 18, temp 98.0 F, and SpO2 of 99% on room air. Labs completed and reviewed. CBC unremarkable. Coagulation profile normal findings. BMP showing high anion gap metabolic acidosis with chloride of 104, bicarb of 21, and anion gap of 15. Blood glucose 169. Lactic acid 4.2. Urinalysis positive for ketones and blood with 12 RBCs but negative for infection. CT ab domen and pelvis showing mild left hydronephrosis secondary to a 5 mm ureteropelvic junction calculus and additional nonobstructing calculi bilaterally, hepatic steatosis, and prostamegaly. Patient admitted under our services with consultation to urology. Physical exam: Patient seen and fully evaluated at bedside this morning. Patient continues to display signs of alcohol withdrawal, with mild tremors and continued auditory hallucinations. Patient very anxious and fidgety. He reports 4-5 out of 10 pain to left lower flank and burning with urination since stent placement. Patient's current CIWA score is 9. Vital signs reviewed and stable. General: Nontoxic, no distress and appears stated age. Derm: Skin warm and dry, normal coloration for ethnicity. Head: Atraumatic, normocephalic and symmetric. Eyes: EOM's intact, no lid lag, and anicteric sclera Mouth: no lip lesions, mucus membranes moist Cardiovascular: regular rate and rhythm with normal S1S2, no murmur, positive posterior tibial pulses bilaterally, and cap refill < 2 seconds. Lungs: Respirations even, regular, and unlabored on room air. Lungs CTA bilaterally, no rhonchi, no rales, no wheezing, and no accessory muscle usage. Abdominal: soft, nontender to palpation, no guarding, no appreciable organomegaly Ext: ROM intact. No gross muscle atrophy, no edema, no contractures Neuro: Speech clear, face symmetrical and CN II-XII grossly intact with no noted focal neuro deficits. Mild resting tremors noted on examination. Psych: Alert and oriented to person, place, time, however confused to situation. Anxious and fidgety. Patient having auditory hallucinations. Assessment and Plan of Care: Alcohol withdraw with auditory hallucinations Longstanding history of daily alcohol abuse -Continue monitoring of CIWA scores and patient to be medicated with Ativan 0.5 mg every 4 hours as needed for CIWA score of 4-5, Ativan 1 mg every 4 hours for CIWA score of 6-7, Ativan 2 mg every 3 hours CIWA score of 8-9, and Ativan 2 mg every 2 hours forr CIWA score of 10 or greater. Current CIWA score is 9. -Thiamine 100 mg daily, and Multivitamin daily, and Folate 1 mg daily -Seizure, fall, aspiration, and elopement precautions in place. -Continued close monitoring of electrolytes and replace as needed. -Telemetry monitoring. Left-sided nephrolithiasis with hydronephrosis Lactic acidosis, resolved -Continue symptomatic care and pain management with Dilaudid 0.5 mg as needed for mild to moderate pain and Dilaudid 1 mg IVP every 3 hours for severe pain. -Urology consulted, discussed plan of care with Dr. Townsend who stated patient is clear from urological perspective for discharge recommending outpatient follow- up in his office in 1 week for cystoscopy and stent removal and recommending patient to resume potassium citrate 2 tablets 3 times daily after discharge. -Continue Flomax 0.4 mg nightly. Hypomagnesemia resolved CAD with previous stenting Hypertension Hyperlipidemia -Continue dual antiplatelet therapy with aspirin 81 mg daily and Brilinta 90 mg twice daily. Continue losartan 50 mg daily, isosorbide mononitrate 30 mg daily, and metoprolol 50 mg twice daily. Data and imaging reviewed: -Labs completed and reviewed. CBC showing no significant abnormalities. BMP showing metabolic acidosis with chloride of 112, bicarb of 20.9, and anion gap of 11.10. Blood glucose 98. Magnesium 1.9. Liver profile showing no significant abnormalities with the exception of hypoalbuminemia with albumin of 3.5. -Vital signs reviewed. Blood pressure 171/97, heart rate 82, respiratory rate 14, temp 98.4 F, and SpO2 of 98% on room air. CODE STATUS: Full code DVT prophylaxis: Lovenox Anticipated discharge date: Pending clinical course and improvement of CINV sco res. Anticipated discharge place: Home Patient was seen independently by Nurse Pracitioner. This document was prepared using [employer] dictation software. Please allow for errors in finger buffs assembler, while rare they do occur. . I reviewed the documentation as provided by the NAKUL above, who is the original author of this note. I agree with the documented assessment and plan, with the following changes: none Objective - Vital Signs Vital signs: Vital Signs Temp 98.4 F 11/27/23 07:26 Pulse 82 11/27/23 07:26 Resp 14 11/27/23 07:26 BP 171/97 11/27/23 07:26 Pulse Ox 98 11/27/23 07:26 FiO2 Intake & Output 11/26/23 11/27/23 11/27/23 18:59 06:59 18:59 Intake Total 1925 240 Output Total 10 600 200 Balance 1915 -360 -200 Intake: IV 1250 Intake, IV Titration 675 Amount Sodium Chloride 0.9% 1, 675 000 ml @ 75 mls/hr IV . [id number] [facility] Rx#:[id number] Oral 240 Output: Urine 600 200 Estimated Blood Loss 10 Other: Voiding Method Toilet Urinal # Voids 2 - Labs CBC & Chem 7: 11/27/23 05:28 11/27/23 05:28 Labs: Abnormal Lab Results - Last 24 Hours (Table) 11/26/23 11/27/23 11/27/23 Range/Units 16:29 05:28 05:28 RBC 4.35 L (4.40-5.60) X 10*6/uL MCV 98.2 H (80.0-97.0) FL MCH 32.4 H (27.0-32.0) pg Chloride 112 H (96-109) mmol/L Carbon Dioxide 20.9 L (21.6-31.8) mmol/L BUN 8.6 L (9.0-27.0) mg/dL BUN/Creatinine Ratio 9.56 L (12.00-20.00) Ratio Glucose 178 H (70-110) mg/dL POC Glucose (mg/dL) 132 H (70-110) mg/dL Calcium 8.4 L (8.7-10.3) mg/dL Total Protein 5.3 L (6.2-8.2) g/dL Albumin 3.5 L (3.8-4.9) g/dL
[2023-11-28 10:41] LABS: HCT 40.4 % (39.6-50.0); HGB 13.5 g/dL (13.0-17.0); MCH 33.1 pg (27.0-32.0); MCHC 33.4 g/dL (32.0-37.0); Mean Platelet Volume 9.8 FL (9.5-12.2); NRBC Per 100 WBC 0 X 10*3/uL (0.00-0.01); Platelet Count 209 X 10*3/uL (140-440); RBC 4.08 X 10*6/uL (4.40-5.60); RDW 12.4 % (11.5-14.5); WBC 4.92 X 10*3/uL (4.50-10.00)
[2023-11-28 11:01] LABS: Magnesium 1.6 mg/dL (1.5-2.4)
[2023-11-28 11:08] LABS: BUN/Creat Ratio 7.44 Ratio (12.00-20.00); Blood Urea Nitrogen 6.7 mg/dL (9.0-27.0); Chloride 109 mmol/L (96-109); Glucose 106 mg/dL (70-110); Potassium 3.2 mmol/L (3.5-5.5); Sodium 144 mmol/L (135-145)
[2023-11-28 11:09] LABS: ALT 15 U/L (10-49); AST 18 U/L (14-35); Albumin 3.6 g/dL (3.8-4.9); Alkaline Phosphatase 52 U/L (41-126); Calcium 8.4 mg/dL (8.7-10.3); Carbon Dioxide 23.2 mmol/L (21.6-31.8); Total Bilirubin 0.8 mg/dL (0.3-1.2); Total Protein 5.6 g/dL (6.2-8.2)
[2023-11-28 12:54] VITALS: BP 147/80; PULSE 74; RESP 20; TEMP 98.8
--- NOTE | 2023-11-28 13:40 | P.DS ---
Providers Date of admission: 11/24/23 19:42 Expected date of discharge: 11/28/23 Attending physician: Shivam Byrne MD Consults: 11/24/23 19:41 Consult Physician Urgent Consulting Provider: Jordan Townsend Consult Reason/Comments: intractable pain secondary to left renal calculus Do you want consulting provider notified?: Yes Primary care physician: Eusebio Betts Hospital Course: Discharge Diagnosis: Alcohol withdraw with auditory hallucinations Longstanding history of daily alcohol abuse Left-sided nephrolithiasis with hydronephrosis Lactic acidosis, resolved Hypomagnesemia resolved CAD with previous stenting Hypertension Hyperlipidemia Hospital course: Patient is a 58-year-old male with a past medical history of CAD stenting, hypertension, hyperlipidemia, recurrent kidney stones, bowel obstruction status post resection, daily alcohol abuse drinking approximately 8-10 shots of vodka daily, nicotine dependence, cannabinoid use. He presented to the emergency department on 11/24/2023 with a chief complaint of left-sided flank pain. Upon arrival to our facility, patient underwent evaluation in the emergency department. Vital signs upon arrival show blood pressure 182/104, heart rate 77, respiratory rate 18, temp 98.0 F, and SpO2 of 99% on room air. Labs completed and reviewed. CBC unremarkable. Coagulation profile normal findings. BMP showing high anion gap metabolic acidosis with chloride of 104, bicarb of 21, and anion gap of 15. Blood glucose 169. Lactic acid 4.2. Urinalysis positive for ketones and blood with 12 RBCs but negative for infection. CT abdomen and pelvis showing mild left hydronephrosis secondary to a 5 mm ureteropelvic junction calculus and additional nonobstructing calculi bilaterally, hepatic steatosis, and prostamegaly. Patient admitted under our services with consultation to urology. On 11/26/2023 patient developed a signs/symptoms of alcohol withdraw and was treated with benzodiazepines for symptom triggered medication management. He was also taken for a cystoscopy with left ureteroscopy and renoscopy with laser lithotripsy and placement of stent. Patient was monitored closely and treated for alcohol withdrawal with symptom triggered medication management with benzodiazepines per CIWA protocol. Withdrawal symptoms improving. Patient cleared from urology perspective for discharge, he is medically stable for discharge at this time. Patient to follow-up outpatient with PCP in 1 to 2 days and with urologist in 1 week. Patient was strongly advised on avoiding any and all alcohol use provided with outpatient resources including therapist, AA meetings, and inpatient drug and alcohol rehabilitation facilities available. Physical exam: Vital signs reviewed and stable. General: Nontoxic, no distress and appears stated age. Derm: Skin warm and dry, normal coloration for ethnicity. Head: Atraumatic, normocephalic and symmetric. Eyes: EOM's intact, no lid lag, and anicteric sclera Mouth: no lip lesions, mucus membranes moist Cardiovascular: regular rate and rhythm with normal S1S2, no murmur, positive posterior tibial pulses bilaterally, and cap refill < 2 seconds. Lungs: Respirations even, regular, and unlabored on room air. Lungs CTA bilaterally, no rhonchi, no rales, no wheezing, and no accessory muscle usage. Abdominal: soft, nontender to palpation, no guarding, no appreciable organomegaly Ext: ROM intact. No gross muscle atrophy, no edema, no contractures Neuro: Speech clear, face symmetrical and CN II-XII grossly intact with no noted focal neuro deficits. Mild resting tremors noted on examination. Psych: Alert and oriented to person, place, time, however confused to situation. Anxious and fidgety. Patient having auditory hallucinations. A total of 39 minutes of time were spent preparing this complex discharge summary. Pt was discharged on 11/28/2023 at 10:53 AM Patient was seen independently by Nurse Practitioner. This document was prepared using [employer] dictation software. Please allow for errors in industrial relations specialist while rare they do occur. Patient was seen independently by Vargas Roper NP. I agree with the assessment and plan as above. Patient Condition at Discharge: Stable Plan - Discharge Summary Discharge Rx Participant: Yes New Discharge Prescriptions: New Tamsulosin [Flomax] 0.4 mg PO PC-SUPPER 30 Days #30 cap HYDROcodone/APAP 5-325MG [[place] 5-325] 1 tab PO Q4HR PRN 3 Days #18 tab PRN Reason: Pain Continue Isosorbide Mononitrate [Isosorbide Mononitrate ER] 30 mg PO DAILY Aspirin [Adult Low Dose Aspirin EC] 81 mg PO DAILY Ticagrelor [Brilinta] 90 mg PO BID Metoprolol Tartrate [Lopressor] 50 mg PO BID Losartan [Cozaar] 50 mg PO DAILY icosapent ethyL [Icosapent Ethyl] 2 gm PO BID Discharge Medication List Isosorbide Mononitrate [Isosorbide Mononitrate ER] 30 mg PO DAILY 02/14/17 [History] Aspirin [Adult Low Dose Aspirin EC] 81 mg PO DAILY 11/20/17 [History] Losartan [Cozaar] 50 mg PO DAILY 11/24/23 [History] Metoprolol Tartrate [Lopressor] 50 mg PO BID 11/24/23 [History] Ticagrelor [Brilinta] 90 mg PO BID 11/24/23 [History] icosapent ethyL [Icosapent Ethyl] 2 gm PO BID 11/24/23 [History] Tamsulosin [Flomax] 0.4 mg PO PC-SUPPER 30 Days #30 cap 11/28/23 [Rx] HYDROcodone/APAP 5-325MG [[place] 5-325] 1 tab PO Q4HR PRN 3 Days #18 tab 11/29/23 [Rx] Follow up Appointment(s)/Referral(s): Eusebio Betts MD [Primary Care Provider] - 12/03/23 10:30 am Jordan Townsend MD [STAFF PHYSICIAN] - 12/05/23 2:20 pm Patient Instructions/Handouts: Kidney Stones (DC), Abuse of Alcohol (DC), Alcohol Withdrawal (DC), Cystoscopy (DC), Lithotripsy (DC) Activity/Diet/Wound Care/Special Instructions: Activity: As tolerated. Take breaks as needed. Diet: Heart healthy and carb consistent diet. Special Instructions: Take all of your medications as directed and remember to keep all of your doctor's appointments and follow-up as needed. Strongly advise avoiding any and all alcohol use. Thank you for allowing us to participate in your care, it was truly a pleasure having you for our patient!!! . Discharge/Stand Alone Forms: AA Meetings [address] - [facility], AA Meetings [place], Who Do I Call?, Community Resources, Outpatient Counseling, Inp Substance Abuse Facilities, Outpatient Therapy List Discharge Disposition: HOME SELF-CARE
== END 2023-11-28 15:45 | disposition home or self-care (01) | DRG 446 ==
LOC: EC 16:13 → 5NMEDONC 19:41 → OBSVTOIN 19:42 → 5NMEDONC 20:20
PROVIDERS: ADMIT Internal Medicine; ATTEND Internal Medicine
PROC: 0TC78ZZ Extirpation of Matter from Left Ureter, Via Natural or Artificial Opening Endoscopic (ICD-10-PCS; principal; 2023-11-26 09:45)
PROC: 0T778DZ Dilation of Left Ureter with Intraluminal Device, Via Natural or Artificial Opening Endoscopic (ICD-10-PCS; 2023-11-26 09:45)
DX: N13.2 Hydronephrosis with renal and ureteral calculous obstruction (principal); E11.9 Type 2 diabetes mellitus without complications; E87.20 Acidosis, unspecified; I10 Essential (primary) hypertension; K76.0 Fatty (change of) liver, not elsewhere classified; N40.0 Benign prostatic hyperplasia without lower urinary tract symptoms; F10.132 Alcohol abuse with withdrawal with perceptual disturbance; E78.5 Hyperlipidemia, unspecified; E83.42 Hypomagnesemia; F17.210 Nicotine dependence, cigarettes, uncomplicated; I25.10 Atherosclerotic heart disease of native coronary artery without angina pectoris; G47.30 Sleep apnea, unspecified; R44.0 Auditory hallucinations; I25.2 Old myocardial infarction; Z79.02 Long term (current) use of antithrombotics/antiplatelets; Z79.82 Long term (current) use of aspirin; Z79.899 Other long term (current) drug therapy; Z87.442 Personal history of urinary calculi; Z95.5 Presence of coronary angioplasty implant and graft; Z88.5 Allergy status to narcotic agent; Z82.49 Family history of ischemic heart disease and other diseases of the circulatory system
CPT/HCPCS: 36415; 74176; 80048; 80053; 81001; 82365; 83605; 83735; 85025; 85027; 85610; 85730; 96361; 96365; 96375; 99285

== ENCOUNTER 2024-04-09 10:36 | Inpatient (IN) | payer OTHER ==
--- NOTE | 2024-04-09 11:03 | ED ---
General Adult HPI - General Chief complaint: Chest Pain Stated complaint: chest pain Time Seen by Provider: 04/09/24 10:38 Source: patient, EMS, RN notes reviewed Mode of arrival: EMS Limitations: no limitations - History of Present Illness Initial comments: Patient is a 59-year-old male presenting to the emergency department with concern with chest discomfort. Onset of symptoms was prior to arrival while shoveling snow. Discomfort felt like pressure or tightness. Patient does have history of previous CO 10 years ago with similar symptoms however patient had radiation to the his left arm at that time which she does not have today. Symptoms resolved with aspirin and nitroglycerin by EMS. Currently patient is symptom-free. Patient did have some nausea and diaphoresis. Patient did feel shortness of breath associated with the chest discomfort - Related Data Home Medications Medication Instructions Recorded Confirmed Isosorbide Mononitrate [Isosorbide 30 mg PO DAILY 02/14/17 11/24/23 Mononitrate ER] Aspirin [Adult Low Dose Aspirin EC] 81 mg PO DAILY 11/20/17 11/24/23 Losartan [Cozaar] 50 mg PO DAILY 11/24/23 11/24/23 Metoprolol Tartrate [Lopressor] 50 mg PO BID 11/24/23 11/24/23 Ticagrelor [Brilinta] 90 mg PO BID 11/24/23 11/24/23 icosapent ethyL [Icosapent Ethyl] 2 gm PO BID 11/24/23 11/24/23 Previous Rx's Medication Instructions Recorded Tamsulosin [Flomax] 0.4 mg PO PC-SUPPER 30 Days #30 cap 11/28/23 HYDROcodone/APAP 5-325MG [[place] 1 tab PO Q4HR PRN 3 Days #18 tab 11/29/23 5-325] Allergies Allergy/AdvReac Type Severity Reaction Status Date / Time codeine AdvReac Vomiting Verified 11/24/23 19:59 morphine AdvReac Nausea & Verified 11/24/23 19:59 Vomiting Review of Systems ROS Statement: Those systems with pertinent positive or pertinent negative responses have been documented in the HPI. ROS Other: All systems not noted in ROS Statement are negative. Constitutional: Denies: fever ENT: Denies: ear pain Cardiovascular: Reports: chest pain Gastrointestinal: Reports: nausea. Denies: abdominal pain Past Medical History Past Medical History: Diabetes Mellitus, Hyperlipidemia, Hypertension, Myocardial Infarction ([place]), Sleep Apnea/CPAP/BIPAP Additional Past Medical History / Comment(s): kidney stones,no cpap,bowel obstruction,hx adhesion,loose stools since teenager,hemorrhoid Last Myocardial Infarction Date:: 09-23-2014 History of Any Multi-Drug Resistant Organisms: None Reported Past Surgical History: Heart Catheterization With Stent Additional Past Surgical History / Comment(s): bowel resection,2 surgeries for adhesions,heart stent x1, kidney stone removal, lithrotripsy Past Anesthesia/Blood Transfusion Reactions: No Reported Reaction Additional Past Anesthesia/Blood Transfusion Reaction / Comment(s): b/p was high after post op and took along time to come out of anesthesia w/ kidney stone procedure Nov 2017, hx of waking up during procedure,no hx blood transfusion Date of Last Stent Placement:: 09-23-2014 Past Psychological History: No Psychological Hx Reported Smoking Status: Current every day smoker Past Alcohol Use History: Daily, Heavy Past Drug Use History: Marijuana - Past Family History Mother Family Medical History: No Reported History Father Family Medical History: CVA/TIA, Hyperlipidemia, Hypertension General Exam Limitations: no limitations General appearance: alert, in no apparent distress Head exam: Present: normocephalic Eye exam: Present: normal appearance Neck exam: Present: normal inspection Respiratory exam: Present: normal lung sounds bilaterally. Absent: chest wall tenderness Cardiovascular Exam: Present: regular rate, normal rhythm, normal heart sounds Expanded Peripheral pulses: 2+: Radial (R), Radial (L), Posterior Tibialis (R), Posterior Tibialis (L) GI/Abdominal exam: Present: soft. Absent: tenderness Extremities exam: Present: normal inspection. Absent: pedal edema, calf tenderness Neurological exam: Present: alert Psychiatric exam: Present: normal affect, normal mood Skin exam: Present: normal color Course Vital Signs 04/09/24 04/09/24 10:38 10:42 Temperature 99.1 F Pulse Rate 92 Pulse Rate [ 91 Pulse Oximetery ] Respiratory 18 Rate Blood Pressure 151/89 O2 Sat by Pulse 98 Oximetry EKG Findings - EKG Results: EKG: interpreted by ERMD (Left axis. Nonspecific T waves.), sinus rhythm Medical Decision Making - Medical Decision Making Was pt. sent in by a medical professional or institution (, PA, FACILITY SECURITY OFFICER, urgent care, hospital, or fdc...) When possible be specific @ -No Did you speak to anyone other than the patient for history (EMS, parent, family, police, friend...)? What history was obtained from this source @ -No Did you review nursing and triage notes (agree or disagree)? Why? @ -I reviewed and agree with nursing and triage notes Were old charts reviewed (outside hosp., previous admission, EMS record, old EKG, old radiological studies, urgent care reports/EKG's, fdc records)? Report findings @ -No old charts were reviewed Differential Diagnosis (chest pain, altered mental status, abdominal pain women, abdominal pain men, vaginal bleeding, weakness, fever, dyspnea, syncope, headache, dizziness, GI bleed, back pain, seizure, CVA, palpatations, mental health, musculoskeletal)? @ -Differential Chest Pain: Stable Angina, Unstable Angina, STEMI, NSTEMI Aortic Dissection, Pneumothorax, Musculoskeletal, Esophageal Spasm GERD, Cholecystitis, Pancreatitis, Zoster, this is not meant to be an all-inclusive list. EKG interpreted by me (3pts min.). @ -As above X-rays interpreted by me (1pt min.). @ -Chest x-ray does not reveal acute abnormality CT interpreted by me (1pt min.). @ -None done U/S interpreted by me (1pt. min.). @ -None done What testing was considered but not performed or refused? (CT, X-rays, U/S, labs)? Why? @ -None What meds were considered but not given or refused? Why? @ -None Did you discuss the management of the patient with other professionals (professionals i.e. , PA, FACILITY SECURITY OFFICER, lab, RT, psych nurse, rn social work, national expansion recruiter, teacher, legal officer, keycase assembler)? Give summary @ -Case discussed with Dr. Donovan with [facility] who will admit covering hospital call Was smoking cessation discussed for >3mins.? @ -No Was critical care preformed (if so, how long)? @ -No Were there social determinants of health that impacted care today? How? (Homelessness, low income, unemployed, alcoholism, drug addiction, transportation, low edu. Level, literacy, decrease access to med. care, usp, rehab)? @ -No Was there de-escalation of care discussed even if they declined (Discuss DNR or withdrawal of care, Hospice)? DNR status @ -No What co-morbidities impacted this encounter? (DM, HTN, Smoking, COPD, CAD, Cancer, CVA, ARF, Chemo, Hep., AIDS, mental health diagnosis, sleep apnea, morbid obesity)? @ -History of coronary artery disease Was patient admitted / discharged? Hospital course, mention meds given and route, prescriptions, significant lab abnormalities, going to OR and other pertinent info. @ -Patient presents with chest discomfort with shoveling snow, resolved with nitroglycerin. Patient does have cardiac history. Initial evaluation unremarkable however concern regarding patient's history and presentation. Patient will be admitted with cardiac consult. Patient reevaluated and updated. Admission orders written. Undiagnosed new problem with uncertain prognosis? @ -No Drug Therapy requiring intensive monitoring for toxicity (Heparin, Nitro, Insulin, Cardizem)? @ -No Were any procedures done? @ -No Diagnosis/symptom? @ -Chest pain Acute, or Chronic, or Acute on Chronic? @ -Acute Uncomplicated (without systemic symptoms) or Complicated (systemic symptoms)? @ -Default Side effects of treatment? @ -No Exacerbation, Progression, or Severe Exacerbation? @ -No Poses a threat to life or bodily function? How? (Chest pain, [place], CO, pneumonia, PE, COPD, DKA, ARF, appy, cholecystitis, CVA, Diverticulitis, Homicidal, Suicidal, threat to staff... and all critical care pts) @ -Threat to cardiac function - Lab Data Result diagrams: 04/09/24 10:55 04/09/24 10:55 Lab Results 04/09/24 04/09/24 04/09/24 Range/Units 10:55 10:55 10:55 WBC 6.5 (3.8-10.6) k/uL RBC 4.84 (4.30-5.90) m/uL Hgb 15.9 (13.0-17.5) gm/dL Hct 45.8 (39.0-53.0) % MCV 94.6 (80.0-100.0) fL MCH 32.8 (25.0-35.0) pg MCHC 34.7 (31.0-37.0) g/dL RDW 12.7 (11.5-15.5) % Plt Count 254 (150-450) k/uL MPV 7.0 Neutrophils % 73 % Lymphocytes % 15 % Monocytes % 7 % Eosinophils % 3 % Basophils % 1 % Neutrophils # 4.8 (1.3-7.7) k/uL Lymphocytes # 1.0 (1.0-4.8) k/uL Monocytes # 0.4 (0-1.0) k/uL Eosinophils # 0.2 (0-0.7) k/uL Basophils # 0.0 (0-0.2) k/uL PT 11.9 (10.0-12.5) sec INR 1.1 (<1.2) APTT 23.1 (22.0-30.0) sec Sodium 138 (137-145) mmol/L Potassium 3.6 (3.5-5.1) mmol/L Chloride 107 (98-107) mmol/L Carbon Dioxide 19 L (22-30) mmol/L Anion Gap 12 mmol/L BUN 11 (9-20) mg/dL Creatinine 0.81 (0.66-1.25) mg/dL Est GFR (CKD-EPI)AfAm >90 (>60 ml/min/1.73 sqM) Est GFR (CKD-EPI)NonAf >90 (>60 ml/min/1.73 sqM) Glucose 125 H (74-99) mg/dL Calcium 8.9 (8.4-10.2) mg/dL Magnesium 1.6 (1.6-2.3) mg/dL Total Bilirubin 1.3 (0.2-1.3) mg/dL AST 40 (17-59) U/L ALT 35 (4-49) U/L Alkaline Phosphatase 70 (38-126) U/L Troponin I (0.000-0.034) ng/mL Total Protein 6.4 (6.3-8.2) g/dL Albumin 4.0 (3.5-5.0) g/dL 04/09/24 Range/Units 10:55 WBC (3.8-10.6) k/uL RBC (4.30-5.90) m/uL Hgb (13.0-17.5) gm/dL Hct (39.0-53.0) % MCV (80.0-100.0) fL MCH (25.0-35.0) pg MCHC (31.0-37.0) g/dL RDW (11.5-15.5) % Plt Count (150-450) k/uL MPV Neutrophils % % Lymphocytes % % Monocytes % % Eosinophils % % Basophils % % Neutrophils # (1.3-7.7) k/uL Lymphocytes # (1.0-4.8) k/uL Monocytes # (0-1.0) k/uL Eosinophils # (0-0.7) k/uL Basophils # (0-0.2) k/uL PT (10.0-12.5) sec INR (<1.2) APTT (22.0-30.0) sec Sodium (137-145) mmol/L Potassium (3.5-5.1) mmol/L Chloride (98-107) mmol/L Carbon Dioxide (22-30) mmol/L Anion Gap mmol/L BUN (9-20) mg/dL Creatinine (0.66-1.25) mg/dL Est GFR (CKD-EPI)AfAm (>60 ml/min/1.73 sqM) Est GFR (CKD-EPI)NonAf (>60 ml/min/1.73 sqM) Glucose (74-99) mg/dL Calcium (8.4-10.2) mg/dL Magnesium (1.6-2.3) mg/dL Total Bilirubin (0.2-1.3) mg/dL AST (17-59) U/L ALT (4-49) U/L Alkaline Phosphatase (38-126) U/L Troponin I 0.018 (0.000-0.034) ng/mL Total Protein (6.3-8.2) g/dL Albumin (3.5-5.0) g/dL Disposition Clinical Impression: Chest pain Disposition: ADMITTED IP TO THIS HOSP Is patient prescribed a controlled substance at d/c from ED?: No Referrals: Eusebio Betts MD [Primary Care Provider] - 1-2 days Time of Disposition: 12:17
[2024-04-09] MEDS: ASPIRIN 81 MG PO STA (11:07)
[2024-04-09] MEDS: NITROGLYCERIN OINT 1 INCH/GM PACKET TOPICAL STA (11:10)
[2024-04-09 11:12] LABS: Basophils % (A) 1 %; Eosinophils # (A) 0.2 k/uL (0-0.7); Eosinophils % (A) 3 %; HCT 45.8 % (39.0-53.0); HGB 15.9 gm/dL (13.0-17.5); Lymphocytes % (A) 15 %; MCH 32.8 pg (25.0-35.0); MCHC 34.7 g/dL (31.0-37.0); MCV 94.6 fL (80.0-100.0); Monocytes # (A) 0.4 k/uL (0-1.0); Monocytes % (A) 7 %; Neutrophils # (A) 4.8 k/uL (1.3-7.7); Neutrophils % (A) 73 %; Platelet Count 254 k/uL (150-450); RBC 4.84 m/uL (4.30-5.90); RDW 12.7 % (11.5-15.5); WBC 6.5 k/uL (3.8-10.6)
[2024-04-09 11:24] LABS: INR 1.1 (<1.2); Partial Thromboplastin Time 23.1 sec (22.0-30.0); Prothrombin Time 11.9 sec (10.0-12.5)
--- NOTE | 2024-04-09 11:38 | XR ---
EXAMINATION TYPE: XR chest 2V DATE OF EXAM: 04/09/2024 11:16 AM COMPARISON: Chest radiographs from 11/20/2014 TECHNIQUE: XR chest 2V Frontal and lateral views of the chest. CLINICAL INDICATION:Male, 59 years old with history of Chest Pain; FINDINGS: Lungs/Pleura: There is no evidence of pleural effusion, focal consolidation, or pneumothorax. Pulmonary vascularity: Unremarkable. Heart/mediastinum: Cardiomediastinal silhouette is unremarkable. Musculoskeletal: No acute osseous pathology. IMPRESSION: No acute cardiopulmonary disease/process. [facility], , 04/09/2024 11:36 AM
[2024-04-09 11:44] LABS: ALT 35 U/L (4-49); AST 40 U/L (17-59); African American GFR (CKD) >90 (>60 ml/min/1.73 sqM); Alkaline Phosphatase 70 U/L (38-126); Anion Gap 12 mmol/L; Blood Urea Nitrogen 11 mg/dL (9-20); Calcium 8.9 mg/dL (8.4-10.2); Carbon Dioxide 19 mmol/L (22-30); Chloride 107 mmol/L (98-107); Glucose 125 mg/dL (74-99); Magnesium 1.6 mg/dL (1.6-2.3); Non-African American GFR(CKD) >90 (>60 ml/min/1.73 sqM); Potassium 3.6 mmol/L (3.5-5.1); Sodium 138 mmol/L (137-145); Total Bilirubin 1.3 mg/dL (0.2-1.3); Total Protein 6.4 g/dL (6.3-8.2)
[2024-04-09] MEDS ORDERED: NITROGLYCERIN SL TABS 0.4 MG TAB SUBLINGUAL PRN (12:18)
[2024-04-09] MEDS: HEPARIN SODIUM 1,000 UN/ML (10ML VL) IV ONE (14:41)
[2024-04-09] MEDS: HEPARIN SOD,PORK IN 0.45% NACL 25,000 UNIT in 0.45% NACL 1 250ML.BAG IV SCH (14:41)
[2024-04-09] MEDS: NITROGLYCERIN OINT 1 INCH/GM PACKET TOPICAL SCH (17:59)
[2024-04-09] MEDS ORDERED: LORazepam 1 MG TAB PO PRN (18:39)
--- NOTE | 2024-04-09 18:49 | P.HPIM ---
History of Present Illness H&P Date: 04/09/24 59 year old M with PMH of HTN, EtOH abuse and CAD with 3 stents presents to the ED for chest tightness that started as he was finishing shoveling snow. Last stent was 2 years ago. Symptoms started around 9:30 AM. Associated symptoms include shortness of breath, cold sweats and vision changes. Symptoms have mostly resolved as of now. He reports non compliance to medications. Drinks 8-10 shots of liquor daily. Smokes 1 PPD. In the ED he underwent extensive evaluation. BP 151/89, HR 92, RR 18, T 99.1F, 98% on RA. CBC, Coag panel, CMP significant for bicarb 19. Mag 1.6. Trop 0.018, 0.038, 0.088 with EKG showing TWI. CXR negative. Patient is started on heparin drip and admitted for Cardiology evaluation. General: non toxic, no distress, appears at stated age Derm: warm, dry Head: atraumatic, normocephalic, symmetric Eyes: EOMI, no lid lag, anicteric sclera Mouth: no lip lesion, mucus membranes moist Cardiovascular: S1S2 tachy, no murmur Lungs: CTA bilateral, no rhonchi, no rales , no accessory muscle use Ext: no gross muscle atrophy, no edema, no contractures Neuro: no focal neuro deficits Psych: Alert, oriented, appropriate affect Based on my assessment of this patient, this patient meets a high complexity level of care. NSTEMI: Start heparin drip. Monitor APTT. Status post ASA 325 mg PO x 1. Start ASA 81 mg PO QD. Brilinta 90 mg PO BID. Metoprolol 50 mg PO BID. Telemetry nasreen blanton. Echo ordered. Cardiology consult. EtOH abuse with impending withdrawal: CIWA protocol with Ativan/Librium as needed per protocol. Nicotine abuse: Offered nicotine patch. Hypertension: Metoprolol as above. Imdur 30 mg PO QD. Losartan 50 mg PO QD. CAD with stenting: Management as above. CODE STATUS: FULL CODE DVT Prophylaxis: Heparin drip GI Prophylaxis: Designated medical POA if patient is not able to make medical decisions for themselves: . I have reviewed the following case consultant notes: ED note. I have reviewed the results of the following tests: As above. I have ordered the following tests: As above. I have discussed the care of this patient with the following independent hi storian: . I have independently interpreted the following test below: EKG. I have discussed the management of this patient with the following physician: ED provider. Past Medical History Past Medical History: Diabetes Mellitus, Hyperlipidemia, Hypertension, Myocardial Infarction ([place]), Sleep Apnea/CPAP/BIPAP Additional Past Medical History / Comment(s): kidney stones,no cpap,bowel obstruction,hx adhesion,loose stools since teenager,hemorrhoid Last Myocardial Infarction Date:: 09-23-2014 History of Any Multi-Drug Resistant Organisms: None Reported Past Surgical History: Heart Catheterization With Stent Additional Past Surgical History / Comment(s): bowel resection,2 surgeries for adhesions,heart stent x1, kidney stone removal, lithrotripsy Past Anesthesia/Blood Transfusion Reactions: No Reported Reaction Additional Past Anesthesia/Blood Transfusion Reaction / Comment(s): b/p was high after post op and took along time to come out of anesthesia w/ kidney stone procedure Nov 2017, hx of waking up during procedure,no hx blood transfusion Date of Last Stent Placement:: 09-23-2014 Past Psychological History: No Psychological Hx Reported Smoking Status: Current every day smoker Past Alcohol Use History: Daily, Heavy Past Drug Use History: Marijuana - Past Family History Mother Family Medical History: No Reported History Father Family Medical History: CVA/TIA, Hyperlipidemia, Hypertension Medications and Allergies Home Medications Medication Instructions Recorded Confirmed Type Isosorbide Mononitrate [Isosorbide 30 mg PO DAILY 02/14/17 04/09/24 History Mononitrate ER] Aspirin [Adult Low Dose Aspirin EC] 81 mg PO DAILY 11/20/17 04/09/24 History Losartan [Cozaar] 50 mg PO DAILY 11/24/23 04/09/24 History Metoprolol Tartrate [Lopressor] 50 mg PO BID 11/24/23 04/09/24 History Ticagrelor [Brilinta] 90 mg PO BID 11/24/23 04/09/24 History icosapent ethyL [Icosapent Ethyl] 2 gm PO BID 11/24/23 04/09/24 History Potassium Citrate [Potassium 20 meq PO BID 04/09/24 04/09/24 History Citrate ER] Allergies Allergy/AdvReac Type Severity Reaction Status Date / Time codeine AdvReac Vomiting Verified 04/09/24 12:14 morphine AdvReac Nausea & Verified 04/09/24 12:14 Vomiting Physical Exam Vitals: Vital Signs Temp Pulse Pulse Resp BP Pulse Ox 04/09/24 17:00 101 H 17 126/70 04/09/24 16:00 93 15 133/78 04/09/24 15:00 86 16 132/86 04/09/24 14:43 104 H 18 132/86 98 04/09/24 14:42 85 18 97 04/09/24 10:42 91 04/09/24 10:38 99.1 F 92 18 151/89 98 Intake and Output 04/09/24 04/09/24 04/09/24 06:59 14:59 22:59 Other: Weight 70.307 kg Results CBC & Chem 7: 04/09/24 10:55 04/09/24 10:55 Labs: Abnormal Lab Results - Last 24 Hours (Table) 04/09/24 04/09/24 04/09/24 Range/Units 10:55 12:30 15:16 Carbon Dioxide 19 L (22-30) mmol/L Glucose 125 H (74-99) mg/dL Troponin I 0.038 H* 0.088 H* (0.000-0.034) ng/mL
[2024-04-09] MEDS: LORazepam 1 MG TAB PO PRN (21:09)
[2024-04-09] MEDS: METOPROLOL TARTRATE 50 MG TAB PO SCH (21:10)
[2024-04-09] MEDS: NON FORMULARY DRUG (Icosapent Ethyl [Icosapent Ethyl] 1 GM Capsule) PO SCH (21:10)
[2024-04-09] MEDS: TICAGRELOR 90 MG TAB PO SCH (21:10)
[2024-04-09] MEDS: POTASSIUM CITRATE 10 MEQ TABLET.ER PO SCH (21:21)
[2024-04-09] MEDS: HEPARIN SODIUM 1,000 UN/ML (10ML VL) IV PRN (21:41)
[2024-04-10] MEDS: LORazepam 0.5 MG TAB PO PRN (04:07)
[2024-04-10 05:02] LABS: INR 1.2 (<1.2); Prothrombin Time 12.8 sec (10.0-12.5)
[2024-04-10] MEDS: ASPIRIN 81 MG PO SCH (08:16)
[2024-04-10] MEDS: LOSARTAN 50 MG TAB PO SCH (08:16)
[2024-04-10] MEDS: THIAMINE 100 MG TAB PO SCH (08:17)
[2024-04-10] MEDS: FOLIC ACID 1 MG TAB PO SCH (08:17)
[2024-04-10] MEDS: MULTIVITAMINS, THERA 1 EACH TAB PO SCH (08:17)
[2024-04-10] MEDS: ISOSORBIDE MONONITRATE ER 30 MG TAB.ER.24H PO SCH (08:17)
[2024-04-10] MEDS ORDERED: NITROGLYCERIN SL TABS 0.4 MG TAB SUBLINGUAL PRN (08:35)
[2024-04-10] MEDS ORDERED: ALPRAZolam 0.25 MG TAB PO PRN (08:35)
[2024-04-10] MEDS ORDERED: ALPRAZolam 0.5 MG TAB PO PRN (08:35)
[2024-04-10] MEDS: ASPIRIN 325 MG TAB PO STA (09:00)
[2024-04-10 09:07] LABS: Basophils # (A) 0.04 X 10*3/uL (0.00-0.10); Basophils % (A) 0.6 %; Eosinophils # (A) 0.17 X 10*3/uL (0.04-0.35); Eosinophils % (A) 2.7 %; HCT 40.8 % (39.6-50.0); HGB 13.9 g/dL (13.0-17.0); Lymphocytes # (A) 1.11 X 10*3/uL (0.90-5.00); Lymphocytes % (A) 17.9 %; MCH 32.2 pg (27.0-32.0); MCHC 34.1 g/dL (32.0-37.0); MCV 94.4 FL (80.0-97.0); Mean Platelet Volume 9.5 FL (9.5-12.2); Monocytes # (A) 0.67 X 10*3/uL (0.20-1.00); Monocytes % (A) 10.8 %; NRBC Per 100 WBC 0 X 10*3/uL (0.00-0.01); Neutrophils # (A) 4.21 X 10*3/uL (1.80-7.70); Neutrophils % (A) 67.8 %; Platelet Count 217 X 10*3/uL (140-440); RBC 4.32 X 10*6/uL (4.40-5.60); WBC 6.21 X 10*3/uL (4.50-10.00)
--- NOTE | 2024-04-10 09:35 | P.CRDCN ---
History of Present Illness History of present illness: HISTORY OF PRESENT ILLNESS: This is a 59-year-old male with a past medical history significant for coronary artery disease with previous stenting, hypertension, hyperlipidemia, nicotine d ependence, and alcohol abuse. Patient used to follow with Dr Butt in [place] but states it has been about 2 years since he has seen him. We have been asked to see the patient in consultation for non-STEMI. Patient examined at the bedside in the emergency room. Patient states yesterday he began having chest discomfort. He states the pain started yesterday morning. He states the pain was in the middle of his chest. He states that he was unable to stand up straight due to the discomfort. He denies having any shortness of breath. He reports mild dizziness this morning upon standing. He states the pain lasted for approximately an hour yesterday and feels similar to the past when he required stenting. Patient states this is the first time he has had pain since his previous stenting. Patient is a current smoker and smokes 1 pack/day. Patient also reports daily alcohol use of 8-10 shots of liquor daily. Additionally, patient states he has not been taking his medications. He states he will take them for about a week and then stop taking them for a week or 2. Patient was found to have elevated troponins and was started on IV heparin. He denies any chest pain or pressure at the time of examination. Vital signs are stable. DIAGNOSTICS: - EKG reveals sinus mechanism with no signs of acute ischemia. Repeat EKG completed revealing sinus mechanism with T wave inversions in V2V6. - Chest xray negative for acute process. - Laboratory data: WBC 6.21. Hemoglobin 13.9. Platelet count 217. Sodium 138. Potassium 3.6. BUN 11. Creatinine 0.81. Troponin 0.018. 0.038. 0.088. - Current home cardiac medications include aspirin 81 mg daily, Imdur 30 mg daily, losartan 50 mg daily, Toprol tartrate 50 mg twice a day, Brilinta 90 mg twice a day. - Most recent echocardiogram obtained in 2014 revealed ejection fraction 45 to 50%, basal lateral hypokinesis, borderline concentric LVH - Cardiac catheterization history: 2014 with stenting of the circumflex with Dr. Ervin REVIEW OF SYSTEMS: At the time of my exam: CONSTITUTIONAL: Denies fever or chills. HEENT: Denies blurred vision, vision changes, or eye pain. Denies hemoptysis CARDIOVASCULAR: Denies chest pain. Denies orthopnea. Denies PND. Denies palpitations RESPIRATORY: Denies shortness of breath. GASTROINTESTINAL: Denies abdominal pain. Denies nausea or vomiting. HEMATOLOGIC: Denies bleeding disorders. GENITOURINARY: Denies any blood in urine. SKIN: Denies pruitis. Denies rash. PHYSICAL EXAM: VITAL SIGNS: Reviewed. GENERAL: Well-developed in no acute distress. HEENT: Head is normocephalic. Pupils are equal, round. Sclerae anicteric. Mucous membranes of the mouth are moist. Neck supple. No JVD or thyromegaly LUNGS: Respirations even and unlabored. Lungs essentially clear to auscultation bilaterally. HEART: Regular rate and rhythm. S1 and S2 heard. ABDOMEN: Soft. Nondistended. Nontender. EXTREMITIES: Normal range of motion. No clubbing or cyanosis. Peripheral pulses intact. No lower extremity edema NEUROLOGIC: Awake and alert. Oriented x 3. ASSESSMENT: Non-STEMI Coronary artery disease with previous stenting of the OM of the circumflex in 2014 and subsequent stenting to the RCA and OM1 in 2020 Mild ischemic cardiomyopathy, 45 to 50% in 2014, repeat echo pending Hypertension Hyperlipidemia Nicotine dependence, patient smokes 1 pack/day Alcohol abuse, patient drinks 8-10 shots of liquor daily Medication noncompliance PLAN: Obtain 2D echo to assess cardiac structure and function Continue IV heparin Continue current cardiac medications Continue aspirin 81 mg daily Add atorvastatin 80 mg at night Discontinue Brilinta Abstinence from alcohol recommended Smoking cessation encouraged. Patient to be referred to [place] quit line upon discharge Medication compliance reinforced with patient who verbalized understanding Patient to undergo cardiac catheterization today with Dr. Etienne Further recommendations pending patient course Nurse practitioner note has been reviewed by physician. Signing provider agrees with the documented findings, assessment, and plan of care documented by PHONOGRAPH CARTRIDGE ASSEMBLER as a scribe. Past Medical History Past Medical History: Diabetes Mellitus, Hyperlipidemia, Hypertension, Myocardial Infarction (MT), Sleep Apnea/CPAP/BIPAP Additional Past Medical History / Comment(s): kidney stones,no cpap,bowel obstruction,hx adhesion,loose stools since teenager,hemorrhoid Last Myocardial Infarction Date:: 09-23-2014 History of Any Multi-Drug Resistant Organisms: None Reported Past Surgical History: Heart Catheterization With Stent Additional Past Surgical History / Comment(s): bowel resection,2 surgeries for adhesions,heart stent x1, kidney stone removal, lithrotripsy Past Anesthesia/Blood Transfusion Reactions: No Reported Reaction Additional Past Anesthesia/Blood Transfusion Reaction / Comment(s): b/p was high after post op and took along time to come out of anesthesia w/ kidney stone procedure Nov 2017, hx of waking up during procedure,no hx blood transfusion Date of Last Stent Placement:: 09-23-2014 Past Psychological History: No Psychological Hx Reported Smoking Status: Current every day smoker Past Alcohol Use History: Daily, Heavy Past Drug Use History: Marijuana - Past Family History Mother Family Medical History: No Reported History Father Family Medical History: CVA/TIA, Hyperlipidemia, Hypertension Medications and Allergies Home Medications Medication Instructions Recorded Confirmed Type Isosorbide Mononitrate [Isosorbide 30 mg PO DAILY 02/14/17 04/09/24 History Mononitrate ER] Aspirin [Adult Low Dose Aspirin EC] 81 mg PO DAILY 11/20/17 04/09/24 History Losartan [Cozaar] 50 mg PO DAILY 11/24/23 04/09/24 History Metoprolol Tartrate [Lopressor] 50 mg PO BID 11/24/23 04/09/24 History Ticagrelor [Brilinta] 90 mg PO BID 11/24/23 04/09/24 History icosapent ethyL [Icosapent Ethyl] 2 gm PO BID 11/24/23 04/09/24 History Potassium Citrate [Potassium 20 meq PO BID 04/09/24 04/09/24 History Citrate ER] Allergies Allergy/AdvReac Type Severity Reaction Status Date / Time codeine AdvReac Vomiting Verified 04/09/24 12:14 morphine AdvReac Nausea & Verified 04/09/24 12:14 Vomiting Physical Exam Vitals: Vital Signs Temp Pulse Pulse Resp BP Pulse Ox 04/10/24 08:13 98.4 F 89 18 150/98 98 04/10/24 04:03 82 18 123/88 96 04/09/24 23:15 98.4 F 74 16 128/98 97 04/09/24 19:21 90 18 133/100 99 04/09/24 17:00 101 H 17 126/70 04/09/24 16:00 93 15 133/78 04/09/24 15:00 86 16 132/86 04/09/24 14:43 104 H 18 132/86 98 04/09/24 14:42 85 18 97 04/09/24 10:42 91 04/09/24 10:38 99.1 F 92 18 151/89 98 Intake and Output 04/09/24 04/10/24 04/10/24 22:59 06:59 14:59 Intake Total 58.778 83.009 Balance 58.778 83.009 Intake: Intake, IV Titration 58.778 83.009 Amount Heparin Sod,Pork in 0.45% 58.778 83.009 NaCl 25,000 unit In 0.45 % NaCl 1 250ml.bag @ 12 UNITS/KG/HR 8.437 mls/hr IV .Q24H [facility] Rx#: [id number] Results 04/10/24 04:12 04/09/24 10:55 Cardiac Enzymes 04/09/24 04/09/24 04/09/24 Range/Units 10:55 10:55 12:30 AST 40 (17-59) U/L Troponin I 0.018 0.038 H* (0.000-0.034) ng/mL 04/09/24 Range/Units 15:16 AST (17-59) U/L Troponin I 0.088 H* (0.000-0.034) ng/mL Coagulation 04/09/24 04/09/24 04/10/24 Range/Units 10:55 20:03 04:12 PT 11.9 12.8 H (10.0-12.5) sec APTT 23.1 31.1 H (22.0-30.0) sec 04/10/24 Range/Units 04:12 PT (10.0-12.5) sec APTT 37.6 H (22.0-30.0) sec CBC 04/09/24 Range/Units 10:55 WBC 6.5 (3.8-10.6) k/uL RBC 4.84 (4.30-5.90) m/uL Hgb 15.9 (13.0-17.5) gm/dL Hct 45.8 (39.0-53.0) % Plt Count 254 (150-450) k/uL Comprehensive Metabolic Panel 04/09/24 Range/Units 10:55 Sodium 138 (137-145) mmol/L Potassium 3.6 (3.5-5.1) mmol/L Chloride 107 (98-107) mmol/L Carbon Dioxide 19 L (22-30) mmol/L BUN 11 (9-20) mg/dL Creatinine 0.81 (0.66-1.25) mg/dL Glucose 125 H (74-99) mg/dL Calcium 8.9 (8.4-10.2) mg/dL AST 40 (17-59) U/L ALT 35 (4-49) U/L Alkaline Phosphatase 70 (38-126) U/L Total Protein 6.4 (6.3-8.2) g/dL Albumin 4.0 (3.5-5.0) g/dL Current Medications Generic Name Dose Route Start Last Admin Trade Name Freq PRN Reason Stop Dose Admin Aspirin 81 mg 04/10/24 09:00 04/10/24 08:16 Aspirin 81 Mg PO 81 mg DAILY PAUL Administration Chlordiazepoxide HCl 25 mg 04/09/24 18:39 Chlordiazepoxide 25 Mg Cap PO Q4HR PRN Ciwa 4 To 5 Folic Acid 1 mg 04/10/24 09:00 04/10/24 08:17 Folic Acid 1 Mg Tab PO 1 mg DAILY PAUL Administration Heparin Sodium (Porcine) 0 unit 04/09/24 14:04 04/10/24 06:04 Heparin Sodium 1,000 Un/Ml (10ml Vl) IV 1,757.675 unit PER PROTOCOL PRN Administration Low PTT Protocol Heparin Sodium/Sodium Chloride 250 mls @ 8.437 mls/hr 04/09/24 14:15 04/10/24 06:05 25,000 unit/ Sodium Chloride IV 16 units/kg/hr .Q24H PAUL 11.249 mls/hr Titration Protocol 12 UNITS/KG/HR Isosorbide Mononitrate 30 mg 04/10/24 09:00 04/10/24 08:17 Isosorbide Mononitrate Er 30 Mg Tab.Er.24h PO 30 mg DAILY PAUL Administration Lorazepam 0.5 mg 04/09/24 18:39 04/10/24 04:07 Lorazepam 0.5 Mg Tab PO 0.5 mg Q4HR PRN Administration Ciwa 4 To 5 Lorazepam 1 mg 04/09/24 18:39 Lorazepam 1 Mg Tab PO Q4HR PRN Ciwa 6 To 7 Lorazepam 2 mg 04/09/24 18:39 Lorazepam 1 Mg Tab PO Q2HR PRN Ciwa 10 or greater Lorazepam 2 mg 04/09/24 18:39 04/09/24 21:09 Lorazepam 1 Mg Tab PO 2 mg Q3HR PRN Administration Ciwa 8 To 9 Losartan Potassium 50 mg 04/10/24 09:00 04/10/24 08:16 Losartan 50 Mg Tab PO 50 mg DAILY PAUL Administration Metoprolol Tartrate 50 mg 04/09/24 21:00 04/10/24 08:17 Metoprolol Tartrate 50 Mg Tab PO 50 mg BID PAUL Administration Multivitamins 1 each 04/10/24 09:00 04/10/24 08:17 Multivitamins, Thera 1 Each Tab PO 1 each DAILY PAUL Administration Nitroglycerin 0.4 mg 04/09/24 12:18 Nitroglycerin Sl Tabs 0.4 Mg Tab SUBLINGUAL Q5M PRN Chest Pain Non-Formulary Medication 2 gm 04/09/24 21:00 04/10/24 08:20 Icosapent Ethyl [Icosapent Ethyl] PO Not Given BID [facility] Potassium Citrate 20 meq 04/09/24 21:00 04/09/24 21:21 Potassium Citrate 10 Meq Tablet.Er PO 20 meq BID PAUL Administration Thiamine HCl 100 mg 04/10/24 09:00 04/10/24 08:17 Thiamine 100 Mg Tab PO 100 mg DAILY PAUL Administration Ticagrelor 90 mg 04/09/24 21:00 04/10/24 08:17 Ticagrelor 90 Mg Tab PO 90 mg BID PAUL Administration Intake and Output 04/09/24 04/10/24 04/10/24 22:59 06:59 14:59 Intake Total 58.778 83.009 Balance 58.778 83.009 Intake: Intake, IV Titration 58.778 83.009 Amount Heparin Sod,Pork in 0.45% 58.778 83.009 NaCl 25,000 unit In 0.45 % NaCl 1 250ml.bag @ 12 UNITS/KG/HR 8.437 mls/hr IV .Q24H [facility] Rx#: [id number] 04/09/24 10:55 04/09/24 10:55
[2024-04-10] MEDS: ATORVASTATIN 80 MG TAB PO STA (09:36)
[2024-04-10] MEDS: ASPIRIN 81 MG PO STA (09:37)
[2024-04-10] MEDS: SODIUM CHLORIDE 0.9% 1,000 ML in EMPTY BAG 1 BAG IV SCH (09:38)
[2024-04-10 09:44] LABS: Chol/HDL Ratio 6.05 Ratio; HDL Cholesterol 33.9 mg/dL (40.00-60.00); VLDL Calculation 228.8 mg/dL (5.00-40.00)
--- NOTE | 2024-04-10 10:33 | CA ---
Transthoracic Echo Report Name: Venancio Nugent Age: 59 Gender: M : 1965 Exam Date: 04/10/2024 08:36 Exam Location: [facility] Ht (in): 67 Wt (lb): 155 Ordering Physician: Laron Delgado DO Attending/Referring Phys: Licensed Weigher Skylar Alfaro RDCS Procedure CPT: Indications: CP Cardiac Hx: Technical Quality: Good Contrast 1: Total Dose (mL): Contrast 2: Total Dose (mL): MEASUREMENTS (Male / Female) Normal Values 2D ECHO LV Diastolic Diameter PLAX 5.4 cm 4.2 - 5.9 / 3.9 - 5.3 cm LV Systolic Diameter PLAX 4.5 cm IVS Diastolic Thickness 1.4 cm 0.6 - 1.0 / 0.6 - 0.9 cm LVPW Diastolic Thickness 1.2 cm 0.6 - 1.0 / 0.6 - 0.9 cm LV Relative Wall Thickness 0.5 RV Internal Dim ED PLAX 2.9 cm LA Systolic Diameter LX 3.5 cm 3.0 - 4.0 / 2.7 - 3.8 cm LV Diastolic Volume MOD 4C 91.4 cm??? LV Systolic Volume MOD 4C 59.1 cm??? LV Ejection Fraction MOD 4C 35.3 % LV Cardiac Index MOD 4C 1305.1 cm???/min???m??? LV Diastolic Length 4C 8.2 cm LV Systolic Length 4C 7.5 cm LV Diastolic Volume MOD 2C 93.6 cm??? LV Systolic Volume MOD 2C 55.8 cm??? LV Ejection Fraction MOD 2C 40.4 % LV Cardiac Index MOD 2C 1528.6 cm???/min???m??? LV Diastolic Length 2C 7.6 cm LV Systolic Length 2C 6.6 cm LA Volume 42.7 cm??? 18 - 58 / 22 - 52 cm??? LA Volume Index 23.3 cm???/m??? 16 - 28 cm???/m??? M-MODE Aortic Root Diameter MM 4.0 cm AV Cusp Separation MM 2.1 cm DOPPLER AV Peak Velocity 103.4 cm/s AV Peak Gradient 4.3 mmHg MV Area PHT 3.2 cm??? Mitral E Point Velocity 69.7 cm/s Mitral A Point Velocity 110.1 cm/s Mitral E to A Ratio 0.6 MV Deceleration Time 238.4 ms FINDINGS Left Ventricle Left ventricular ejection fraction is estimated at 40 %. Mildly increased septal wall thickness. Left ventricular cavity size normal. Moderately reduced global left ventricular systolic function. Right Ventricle Normal right ventricular size. Unable to estimate the right ventricular systolic pressure. Right Atrium Normal right atrial size. No right atrial thrombus or mass seen. Left Atrium Normal left atrial size. No left atrial thrombus or mass present. Mitral Valve Structurally normal mitral valve. No mitral stenosis, regurgitation or prolapse. Aortic Valve Trileaflet aortic valve. No aortic valve stenosis or regurgitation. Tricuspid Valve Structurally normal tricuspid valve. No tricuspid stenosis, regurgitation or prolapse. Pulmonic Valve Structurally normal pulmonic valve. Trace pulmonic regurgitation. Pericardium No pericardial effusion. Aorta Mild aortic dilatation at the level of the sinuses of valsalva 40 mm CONCLUSIONS Are dilated LV. Impaired LV systolic function with EF at 40% with overall global hypokinesia No significant valvular abnormalities noted No pericardial effusion The pulmonary artery systolic pressure was not calculated Mild aortic dilatation at the level of sinus of Valsalva at 4.0 cm Previewed by: Dr. Guero Oakes MD (Electronically Signed) Final Date: 10 April 2024 10:32
--- NOTE | 2024-04-10 14:09 | P.CN ---
Psychiatric Consult - . Consult date: 04/10/24 Consult:: 04/10/24 14:03 IDENTIFYING DATA: This patient is a 59-year-old male, employed and living with REASON FOR REFERRAL: Psychiatry was consulted for suicidal statements HISTORY OF PRESENT ILLNESS: The patient presented to the hospital with chest pain shortness of breath. Troponins were elevated and cardiology was ultimately consulted for NSTEMI and recommended cardiac cath however patient refused consent form stating "why would I want this when I just do not want to wake up" and "it would be easier to just not be here". Patient seen and evaluated in his room with at bedside. He reports never making such statements, expressing that if he were to he would be okay with that however vehemently denying any active suicidal thoughts, no plan or intention. He states he was earlier having a difficult time having to get a cardiac cath however he states feeling better about it now. He states that the consent form expressed the possibility for blood transfusion and resuscitation to which he is again stating that if he were to that he would rather just let it happen. He did mention issues with both self-esteem and his relationship with his children given his alcohol use, stating that his children has distanced himself from him. 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 He is open to outpatient counseling and possibly starting a medication for alcohol use. He does report chronic sleep difficulties, anhedonia, low energy, denying any appetite changes. At this time patient denies any suicidal or homical ideations, intent or plan. Patient denies any auditory, visual hallucinations and denies any paranoia or delusions. Oliver lugo admits to using alcohol daily, smoking 1 pack/day of cigarettes and occasional cannabis. PAST PSYCHIATRIC HISTORY: Patient has no past psych history. Patient denies being on any psychiatric medications. Patient denies any previous psychiatric hospitalizations. Patient denies any psychiatric outpatient follow-up. Patient denies any history of suicide attempts in the past. PAST MEDICAL HISTORY: AR, diabetes, dyslipidemia, hypertension, sleep apnea. ALLERGIES: as per EMR. CHEMICAL DEPENDENCY HISTORY: as per HPI. FAMILY PSYCHIATRIC/SUBSTANCE USE HISTORY: Denies SOCIAL HISTORY: Patient is and has 2 children, living with his . He states having 2 grandkids. 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 MENTAL STATUS EXAM: General Appearance: Patient appears to be stated age is alert, pleasant, and cooperative. Patient appears to have fair hygiene and grooming wearing hospital gown with fair eye contact. Behavior: Patient is calmly lying in bed without any agitated behavior. Speech: Patient's speech is fluent and nonpressured. Mood/Affect: Patient reports their mood is "okay", affect is congruent Suicidality/Homicidality: Patient denies having any suicidal or homicidal ideation intent or plan. Perceptions: Patient denies any visual hallucinations and denies any auditory hallucinations Though content/process: There is no evidence of any delusional thought content and thought process is linear and goal-directed. Memory and concentration: AOX3, grossly intact for the purposes of this session. Can spell "WORLD" backwards Judgment and insight: Poor IMPRESSIONS: Alcohol use disorder, severe, in withdrawal Substance-induced mood disorder Nicotine dependence PLAN: -At this time patient DOES NOT meet criteria for inpatient psychiatric admission. -Would recommend the following medication changes/additions: Start naltrexone 50 mg daily for alcohol use, CMP ordered to review LFTs. Patient agreeable with outpatient counseling given his mood disorder and ongoing substance use. He is not agreeable with rehab given his employment. -CIWA protocol with PRN Ativan/Librium for alcohol withdrawal. Continue to monitor vital signs. -Can discontinue 1:1 sitter at this time as patient is not currently an imminent threat to themselves -packing line worker to provide patient with outpatient mental health/psychiatry resources for appropriate follow up upon discharge -Fitness Center Attendant spoke with patient about substance abuse and the harmful effects on medical and mental health, patient verbally understood and agreed. -packing line worker to provide patient substance use treatment resources including AA/NA meetings in the community. -Communicated plan to patient's nurse -Psychiatry will sign off at this time -Please contact with any questions.
[2024-04-10 16:02] LABS: LDL Cholesterol,Direct Reflex 62.8 mg/dL (0.00-129.00)
[2024-04-10 16:05] LABS: Glucose,Whole Blood 172 mg/dL (70-110)
--- NOTE | 2024-04-10 16:51 | P.PN ---
Subjective Progress Note Date: 04/10/24 59 year old M with PMH of HTN, EtOH abuse and CAD with 3 stents presents to the ED for chest tightness that started as he was finishing shoveling snow. Last stent was 2 years ago. Symptoms started around 9:30 AM. Associated symptoms include shortness of breath, cold sweats and vision changes. Symptoms have mostly resolved as of now. He reports non compliance to medications. Drinks 8-10 shots of liquor daily. Smokes 1 PPD. In the ED he underwent extensive evaluation. BP 151/89, HR 92, RR 18, T 99.1F, 98% on RA. CBC, Coag panel, CMP significant for bicarb 19. Mag 1.6. Trop 0.018, 0.038, 0.088 with EKG showing TWI. CXR negative. Patient is started on heparin drip and admitted for Cardiology evaluation. 04/10 Patient was seen and examined. Maintained on heparin drip. Initially plan was for cardiac cath today but patient did not sign consent thus will be postponed until tomorrow. He denies any SI or HI but is visibly emotional. CBC RBC 4.32. Coag panel PT 12.8, INR 1.2, APTT 37.6. Lipid panel TG 1144, T. Chol 205. Echo showed EF 40%. General: non toxic, no distress, appears at stated age Derm: warm, dry Head: atraumatic, normocephalic, symmetric Eyes: EOMI, no lid lag, anicteric sclera Mouth: no lip lesion, mucus membranes moist Cardiovascular: S1S2 reg, no murmur Lungs: CTA bilateral, no rhonchi, no rales , no accessory muscle use Ext: no gross muscle atrophy, no edema, no contractures Neuro: no focal neuro deficits Psych: Depressed mood Based on my assessment of this patient, this patient meets a high complexity level of care. NSTEMI: Heparin drip. Monitor APTT. Status post ASA 325 mg PO x 1. ASA 81 mg PO QD. Metoprolol 50 mg PO BID. Lipitor as below. Telemetry monitoring. Echo as above. Cardiology on board. Depressed mood: Psychiatry consulted. Denies SI/HI/AH/VH. EtOH abuse with impending withdrawal: CIWA protocol with Ativan/Librium as needed per protocol. Dyslipidemia: Lipitor 80 mg PO QHS. Nicotine abuse: Offered nicotine patch. Hypertension: Metoprolol as above. Imdur 30 mg PO QD. Losartan 50 mg PO QD. CAD with stenting: Management as above. CODE STATUS: FULL CODE DVT Prophylaxis: Heparin drip GI Prophylaxis: Designated medical POA if patient is not able to make medical decisions for themselves: . I have reviewed the following business analysis consultant notes: Cardiology note. I have reviewed the results of the following tests: As above. I have ordered the following tests: As above. I have discussed the care of this patient with the following independent historian: . I have independently interpreted the following test below: I have discussed the management of this patient with the following physician: Objective - Vital Signs Vital signs: Vital Signs Temp 98.1 F 04/10/24 15:00 Pulse 80 04/10/24 15:00 Resp 16 04/10/24 15:00 BP 138/76 04/10/24 15:00 Pulse Ox 97 04/10/24 15:00 FiO2 Intake & Output 04/09/24 04/10/24 04/10/24 18:59 06:59 18:59 Intake Total 141.787 82.493 Balance 141.787 82.493 Weight 70.307 kg 70.307 kg Intake: Intake, IV Titration 141.787 82.493 Amount Heparin Sod,Pork in 0.45% 141.787 82.493 NaCl 25,000 unit In 0.45 % NaCl 1 250ml.bag @ 12 UNITS/KG/HR 8.437 mls/hr IV .Q24H [facility] Rx#: [id number] - Labs CBC & Chem 7: 04/10/24 04:12 04/09/24 10:55 Labs: Abnormal Lab Results - Last 24 Hours (Table) 04/09/24 04/10/24 04/10/24 Range/Units 20:03 04:12 04:12 RBC 4.32 L (4.40-5.60) X 10*6/uL MCH 32.2 H (27.0-32.0) pg PT 12.8 H (10.0-12.5) sec INR 1.2 H (<1.2) APTT 31.1 H (22.0-30.0) sec POC Glucose (mg/dL) (70-110) mg/dL Triglycerides (0.00-149.00) mg/dL Cholesterol (0.00-200.00) mg/dL VLDL Cholesterol, Calc (5.00-40.00) mg/dL HDL Cholesterol (40.00-60.00) mg/dL 04/10/24 04/10/24 04/10/24 Range/Units 04:12 04:12 12:07 RBC (4.40-5.60) X 10*6/uL MCH (27.0-32.0) pg PT (10.0-12.5) sec INR (<1.2) APTT 37.6 H 40.9 H (22.0-30.0) sec POC Glucose (mg/dL) (70-110) mg/dL Triglycerides 1144.00 H (0.00-149.00) mg/dL Cholesterol 205.00 H (0.00-200.00) mg/dL VLDL Cholesterol, Calc 228.80 H (5.00-40.00) mg/dL HDL Cholesterol 33.90 L (40.00-60.00) mg/dL 04/10/24 Range/Units 16:04 RBC (4.40-5.60) X 10*6/uL MCH (27.0-32.0) pg PT (10.0-12.5) sec INR (<1.2) APTT (22.0-30.0) sec POC Glucose (mg/dL) 172 H (70-110) mg/dL Triglycerides (0.00-149.00) mg/dL Cholesterol (0.00-200.00) mg/dL VLDL Cholesterol, Calc (5.00-40.00) mg/dL HDL Cholesterol (40.00-60.00) mg/dL
[2024-04-10] MEDS: NALTREXONE HCL 50 MG TAB PO SCH (17:28)
[2024-04-10] MEDS: LORazepam 1 MG TAB PO PRN (18:27)
[2024-04-10] MEDS: chlordiazePOXIDE 25 MG CAP PO PRN (20:04)
[2024-04-11] MEDS ORDERED: HEPARIN SODIUM,PORCINE (1 ML) 2,500 UNIT in SODIUM CHLORIDE 0.9% 250 ML IRRIGATION PRN (07:00)
[2024-04-11] MEDS ORDERED: HEPARIN SODIUM,PORCINE 10,000 UNIT in SODIUM CHLORIDE 0.9% 1,000 ML IRRIGATION PRN (07:00)
[2024-04-11 07:50] LABS: ALT 26 U/L (4-49); AST 26 U/L (17-59); African American GFR (CKD) >90 (>60 ml/min/1.73 sqM); Albumin 3.3 g/dL (3.5-5.0); Alkaline Phosphatase 72 U/L (38-126); Anion Gap 6 mmol/L; Blood Urea Nitrogen 10 mg/dL (9-20); Calcium 8.3 mg/dL (8.4-10.2); Carbon Dioxide 26 mmol/L (22-30); Chloride 106 mmol/L (98-107); Glucose 127 mg/dL (74-99); Non-African American GFR(CKD) >90 (>60 ml/min/1.73 sqM); Potassium 3.7 mmol/L (3.5-5.1); Sodium 138 mmol/L (137-145); Total Bilirubin 1.2 mg/dL (0.2-1.3); Total Protein 5.5 g/dL (6.3-8.2)
[2024-04-11] MEDS: fentaNYL (PF) 50 MCG/ML 2 ML AMP IVP ONE (09:52)
[2024-04-11] MEDS: MIDAZOLAM 2 MG/2 ML VIAL IVP ONE (09:53)
[2024-04-11] MEDS: LIDOCAINE 1% INJ 10MG/ML (20 ML MDV) SQ ONE (09:53)
[2024-04-11] MEDS: VERAPAMIL SYRINGE (5 MG/10 ML) INTRAARTER ONE (09:54)
[2024-04-11] MEDS: IV FLUID CONTINUATION 350 ML IV ONE (09:59)
[2024-04-11] MEDS: HEPARIN SODIUM 1,000 UN/ML (10ML VL) IVP ONE ×3 (10:02→10:25)
[2024-04-11] MEDS: PRASUGREL 10 MG TAB PO ONE (10:08)
[2024-04-11] MEDS: IOPAMIDOL-370 100ML BTL INJ ONE (10:45)
[2024-04-11] MEDS: HEPARIN SODIUM,PORCINE 10,000 UNIT in SODIUM CHLORIDE 0.9% 1,000 ML IRRIGATION ONE (10:46)
[2024-04-11] MEDS: HEPARIN SODIUM,PORCINE (1 ML) 2,500 UNIT in SODIUM CHLORIDE 0.9% 250 ML IRRIGATION ONE (10:47)
[2024-04-11] MEDS ORDERED: ZOLPIDEM 5 MG TAB PO PRN (10:56)
[2024-04-11] MEDS ORDERED: NITROGLYCERIN SL TABS 0.4 MG TAB SUBLINGUAL PRN (10:56)
[2024-04-11] MEDS ORDERED: ATROPINE SULFATE 0.1 MG/ML 10ML SYRINGE IV PRN (10:56)
[2024-04-11] MEDS ORDERED: RX INFO: IV CONTRAST WAS GIVEN 1 EACH MISC MISCELLANE PRN (10:56)
[2024-04-11] MEDS ORDERED: MAG HYDROX/AL HYDROX/SIMETH 30 ML CUP PO PRN (10:56)
--- NOTE | 2024-04-11 11:07 | P.CARDCATH ---
Date of Procedure: 04/11/24 Description of Procedure: Cardiac Catheterization: The patient is a 59-year-old male with a known history of CAD status post stenting in 2014 and 2020, history of hypertension, hyperlipidemia, chronic tobacco use and alcohol abuse, noncompliant who presented to the emergency room with symptoms of chest comfort and mild troponin elevations. Recommendations were made regarding cardiac catheterization, the risks and the complications were discussed with the patient who is in full understanding and agreement. Procedure Description: Patient was brought to manager cath lab in fasting semi-sedated state after receiving Fentanyl and Benadryl achieiving moderate conscious sedated state. Using Xylocaine Anesthesia and modified Seldinger technique, a 6-Comoran sheath was introduced in the right radial artery . Subsequently, selective coronary angiography was performed using a 5-Comoran 3.5 bend Stephanie catheter. Multiple views of the coronary artery including hemiaxial views were obtained. The 5 [place] pigtail catheter was used to cross the aortic valve and LVEDP was calculated. PCI: After removing the catheters a 6 [place] CLS 3.5 guiding catheter was introduced and after cannulating the left main a 0.014 BMW J-wire was positioned in the inferior branch of the first OM and subsequently a second 0.014 BMW wire was positioned in the superior branch. Subsequently a 2.25 x 12 mm trek balloon was advanced and inflation in the inferior branch were done at 8 carlos and after that the balloon was advanced over the superior branch and inflations at 8 carlos were done. After removing the balloon a [employer] [place] eye IVUS catheter was introduced and the superior branch and imaging were obtained. After removing the IVUS a 2.75 x 18 mm Xience kim point stent was advanced and deployed at 16 carlos. After removing the balloon repeat IVUS was performed and showed mild under deployment of the stent proximally. A 3.0 x 15 mm NC trek balloon was advanced and 2 inflations at 12 carlos were done. After removing the catheters the wire were removed and images were obtained and revealed stable successful stenting. Following that, catheter and sheath were removed. Hemostasis was obtained with deployment of vascular band . There was no immediate complication. Patient was returned to room in stable condition. Of note, the patient received a total of 8000 units of intravenous heparin as well as intra-arterial verapamil. He received an oral loading dose of prasugrel. His ACT was monitored. He had chest discomfort but no EKG changes. The chest discomfort resolved at the end of the procedure. Findings: Fluoroscopy: Calcifications of the LAD was noted Left main: This is a large size vessel, bifurcating into LAD and left circumflex, left main has no obstructive disease. LAD: This is a large size vessel, reaching to the apex, the LAD is calcified in the midsegment and has a 50 to 60% intimal disease and 2 areas of the mid and distal vessel with no significant progression compared to 2015 Left circumflex: This is a large nondominant vessel, giving rise to a large first obtuse marginal branch that has a branching point. At the branching point there is a 99% stenosis with Angel 111 RCA: This is a large dominant vessel bifurcating distally to PDA and PLV. The stented segment in the mid RCA is patent with 20% in-stent restenosis. Distally there is another 30% plaque. The ostium of the PDA has a 70% stenosis. The first branch of the PLV has an 80 to 90% stenosis in the midsegment beyond that the vessel is small in caliber. The larger PLV branch has mild intimal disease Left Ventriculogram: Not performed Hemodynamics: There was no gradient across aortic valve, LVEDP was 8-10 mmHg Conclusion: 1. Severe stenosis in the first obtuse marginal branch, Angel 111 2. Significant disease in the PLV with patent stent in the RCA 3. Moderate disease in the LAD with no progression compared to 2015 4. Successful stenting of the first OM with reduction of stenosis from 99% to 0% with TL-3 flow in the lower branch with IVUS imaging Recommendations: The patient will continue on aspirin and prasugrel for 1 year without any interruption in addition to aggressive coronary risks modification, attempting to maintain LDL below 70 mg/dL. The importance of smoking cessation and alcohol cessation was discussed with him and his family. He will be referred to [place] quit line.. The findings and the recommendations were discussed with the patient and the family and they were in full understanding and agreement. Duration of sedation is 48 minutes.
[2024-04-11] MEDS: SODIUM CHLORIDE 0.9% 1,000 ML in EMPTY BAG 1 BAG IV SCH (11:37)
[2024-04-11 16:06] VITALS: BMI 24.3
--- NOTE | 2024-04-11 16:49 | P.PN ---
Subjective Progress Note Date: 04/11/24 59 year old M with PMH of HTN, EtOH abuse and CAD with 3 stents presents to the ED for chest tightness that started as he was finishing shoveling snow. Last stent was 2 years ago. Symptoms started around 9:30 AM. Associated symptoms include shortness of breath, cold sweats and vision changes. Symptoms have mostly resolved as of now. He reports non compliance to medications. Drinks 8-10 shots of liquor daily. Smokes 1 PPD. In the ED he underwent extensive evaluation. BP 151/89, HR 92, RR 18, T 99.1F, 98% on RA. CBC, Coag panel, CMP significant for bicarb 19. Mag 1.6. Trop 0.018, 0.038, 0.088 with EKG showing TWI. CXR negative. Patient is started on heparin drip and admitted for Cardiology evaluation. 04/10 Patient was seen and examined. Maintained on heparin drip. Initially plan was for cardiac cath today but patient did not sign consent thus will be postponed until tomorrow. He denies any SI or HI but is visibly emotional. CBC RBC 4.32. Coag panel PT 12.8, INR 1.2, APTT 37.6. Lipid panel TG 1144, T. Chol 205. Echo showed EF 40%. 04/11 Patient was seen and examined. No chest pain. Underwent cardiac cath showing severe stenosis of the first obtuse marginal, significant disease in the PLV with patent RCA stent, moderate disease in the LAD, stenting of the first OM. APTT 31.8. CMP glu 127, Ca 8.3, alb 3.3. General: non toxic, no distress, appears at stated age Derm: warm, dry Head: atraumatic, normocephalic, symmetric Eyes: EOMI, no lid lag, anicteric sclera Mouth: no lip lesion, mucus membranes moist Cardiovascular: good distal perfusion in all 4 extremities Lungs: breathing comfortably, no accessory muscle use Ext: no gross muscle atrophy, no edema, no contractures Neuro: no focal neuro deficits Psych: Depressed mood Based on my assessment of this patient, this patient meets a high complexity level of care. NSTEMI: Status post cardiac cath as above. Status post ASA 325 mg PO x 1. ASA 81 mg PO QD. Metoprolol 50 mg PO BID. Lipitor as below. Effient 10 mg PO QD. Telemetry monitoring. Echo as above. Cardiology on board. Depressed mood: Psychiatry consulted. Denies SI/HI/AH/VH. EtOH abuse with impending withdrawal: CIWA protocol with Ativan/Librium as needed per protocol. Naltrexone 50 mg PO QD. Dyslipidemia: Lipitor 80 mg PO QHS. Nicotine abuse: Offered nicotine patch. Hypertension: Metoprolol as above. Imdur 30 mg PO QD. Losartan 50 mg PO QD. CAD with stenting: Management as above. CODE STATUS: FULL CODE DVT Prophylaxis: Lovenox GI Prophylaxis: Designated medical POA if patient is not able to make medical decisions for themselves: . I have reviewed the following beauty consultant notes: Cardiology note. I have reviewed the results of the following tests: As above. I have ordered the following tests: As above. I have discussed the care of this patient with the following independent historian: . I have independently interpreted the following test below: I have discussed the management of this patient with the following physician: Objective - Vital Signs Vital signs: Vital Signs Temp 97.8 F 04/11/24 16:00 Pulse 71 04/11/24 08:00 Resp 18 04/11/24 16:00 BP 159/91 04/11/24 16:00 Pulse Ox 96 04/11/24 16:00 FiO2 Intake & Output 04/10/24 04/11/24 04/11/24 18:59 06:59 18:59 Intake Total 322.493 100 Output Total 400 900 Balance 322.493 -400 -800 Weight 70.307 kg 70.4 kg 70.4 kg Intake: IV 100 Intake, IV Titration 82.493 Amount Heparin Sod,Pork in 0.45% 82.493 NaCl 25,000 unit In 0.45 % NaCl 1 250ml.bag @ 12 UNITS/KG/HR 8.437 mls/hr IV .Q24H PAUL Rx#: [id number] Oral 240 Output: Urine 400 900 Other: Voiding Method Toilet Toilet Urinal Urinal # Voids 1 1 - Labs CBC & Chem 7: 04/10/24 04:12 04/11/24 06:52 Labs: Abnormal Lab Results - Last 24 Hours (Table) 04/11/24 04/11/24 Range/Units 06:52 06:52 APTT 31.8 H (22.0-30.0) sec Glucose 127 H (74-99) mg/dL Calcium 8.3 L (8.4-10.2) mg/dL Total Protein 5.5 L (6.3-8.2) g/dL Albumin 3.3 L (3.5-5.0) g/dL
[2024-04-11 20:10] VITALS: RESP 16
[2024-04-11] MEDS: ATORVASTATIN 80 MG TAB PO SCH (20:41)
[2024-04-12] MEDS: PRASUGREL 10 MG TAB PO SCH (08:55)
[2024-04-12] MEDS: ENOXAPARIN 40 MG/0.4 ML SYRINGE SQ SCH (08:55)
[2024-04-12 12:18] VITALS: BP 142/84; PULSE 73; TEMP 98
--- NOTE | 2024-04-12 13:13 | P.PN ---
Subjective HISTORY OF PRESENT ILLNESS: This is a 59-year-old male with a past medical history significant for coronary artery disease with previous stenting, hypertension, hyperlipidemia, nicotine dependence, and alcohol abuse. Patient used to follow with Dr Butt in [place] but states it has been about 2 years since he has seen him. We have been asked to see the patient in consultation for non-STEMI. Patient examined at the bedside in the emergency room. Patient states yesterday he began having chest discomfort. He states the pain started yesterday morning. He states the pain was in the middle of his chest. He states that he was unable to stand up straight due to the discomfort. He denies having any shortness of breath. He reports mild dizziness this morning upon standing. He states the pain lasted for approximately an hour yesterday and feels similar to the past when he required stenting. Patient states this is the first time he has had pain since his previous stenting. Patient is a current smoker and smokes 1 pack/day. Patient also reports daily alcohol use of 8-10 shots of liquor daily. Additionally, patient states he has not been taking his medications. He states he will take them for about a week and then stop taking them for a week or 2. Patient was found to have elevated troponins and was started on IV heparin. He denies any chest pain or pressure at the time of examination. Vital signs are stable. DIAGNOSTICS: - EKG reveals sinus mechanism with no signs of acute ischemia. Repeat EKG completed revealing sinus mechanism with T wave inversions in V2V6. - Chest xray negative for acute process. - Laboratory data: WBC 6.21. Hemoglobin 13.9. Platelet count 217. Sodium 138. Potassium 3.6. BUN 11. Creatinine 0.81. Troponin 0.018. 0.038. 0.088. - Current home cardiac medications include aspirin 81 mg daily, Imdur 30 mg daily, losartan 50 mg daily, Toprol tartrate 50 mg twice a day, Brilinta 90 mg twice a day. - Most recent echocardiogram obtained in 2014 revealed ejection fraction 45 to 50%, basal lateral hypokinesis, borderline concentric LVH - Cardiac catheterization history: 2014 with stenting of the circumflex with Dr. Ervin 04/12/2024 Patient is status post cardiac catheterization revealing severe stenosis in the first OM, significant disease in the PLV with patent stent in the RCA, moderate disease in the LAD with no progression compared to 2015. Patient underwent stenting of the first OM. Patient examined this morning the bedside. Patient denies any chest pain or pressure. She denies any shortness of breath. He has been up ambulating without difficulty. Vital signs are stable. Right radial cath site with pulse present and no hematoma noted. Echocardiogram completed revealing ejection fraction 40% with global hypokinesis. PHYSICAL EXAM: VITAL SIGNS: Reviewed. GENERAL: Well-developed in no acute distress. HEENT: Head is normocephalic. Pupils are equal, round. Sclerae anicteric. Mucous membranes of the mouth are moist. Neck supple. No JVD or thyromegaly LUNGS: Respirations even and unlabored. Lungs essentially clear to auscultation bilaterally. HEART: Regular rate and rhythm. S1 and S2 heard. ABDOMEN: Soft. Nondistended. Nontender. EXTREMITIES: Normal range of motion. No clubbing or cyanosis. Peripheral pulses intact. No lower extremity edema NEUROLOGIC: Awake and alert. Oriented x 3. ASSESSMENT: Non-STEMI, s/p cardiac catheterization with stenting to the OM1 Coronary artery disease with previous stenting of the OM of the circumflex in 2014 and subsequent stenting to the RCA and OM1 in 2020 Mild ischemic cardiomyopathy, 40% Hypertension Hyperlipidemia Nicotine dependence, patient smokes 1 pack/day Alcohol abuse, patient drinks 8-10 shots of liquor daily Medication noncompliance PLAN: Continue dual antiplatelet therapy with aspirin and Effient for 12 months Continue high intensity statin. LDL goal less than 70. Continue additional cardiac medications Abstinence from alcohol recommended Smoking cessation encouraged. Patient to be referred to [place] quit line upon discharge Medication compliance reinforced with patient who verbalized understanding Patient may be discharged home today from a cardiac standpoint Nurse practitioner note has been reviewed by physician. Signing provider agrees with the documented findings, assessment, and plan of care documented by [employer] as a scribe. Objective - Vital Signs Vital signs: Vital Signs Temp 98 F 04/12/24 12:00 Pulse 73 04/12/24 12:00 Resp 16 04/12/24 12:00 BP 142/84 04/12/24 12:00 Pulse Ox 97 04/12/24 12:00 FiO2 Intake & Output 04/11/24 04/12/24 04/12/24 18:59 06:59 18:59 Intake Total 100 480 Output Total 900 575 150 Balance -800 -575 330 Weight 70.4 kg Intake: IV 100 Oral 480 Output: Urine 900 575 150 Other: Voiding Method Toilet Toilet Urinal Urinal # Voids 1 - Labs CBC & Chem 7: 04/10/24 04:12 04/11/24 06:52
--- NOTE | 2024-04-12 13:59 | P.DS ---
Providers Date of admission: 04/09/24 12:20 Expected date of discharge: 04/12/24 Attending physician: Carl Pantoja MD Consults: 04/09/24 12:18 Consult Physician Urgent Consulting Provider: John Etienne Consult Reason/Comments: cp Do you want consulting provider notified?: Yes 04/10/24 13:07 Consult Physician Stat Consulting Provider: Chen Delgado Consult Reason/Comments: suicidal statements & outpatient resources Do you want consulting provider notified?: Yes 04/11/24 10:57 Consult Physician Routine Consulting Provider: [facility] Consult Reason/Comments: Post Interventional Patient Do you want consulting provider notified?: Already Contacted Primary care physician: Eusebio [facility] Course: 59 year old M with PMH of HTN, EtOH abuse and CAD with 3 stents presents to the ED for chest tightness that started as he was finishing shoveling snow. Last stent was 2 years ago. Symptoms started around 9:30 AM. Associated symptoms include shortness of breath, cold sweats and vision changes. Symptoms have mostly resolved as of now. He reports non compliance to medications. Drinks 8-10 shots of liquor daily. Smokes 1 PPD. In the ED he underwent extensive evaluation. BP 151/89, HR 92, RR 18, T 99.1F, 98% on RA. CBC, Coag panel, CMP significant for bicarb 19. Mag 1.6. Trop 0.018, 0.038, 0.088 with EKG showing TWI. CXR negative. Patient is started on heparin drip and admitted for Cardiology evaluation. 04/10 Patient was seen and examined. Maintained on heparin drip. Initially plan was for cardiac cath today but patient did not sign consent thus will be postponed until tomorrow. He denies any SI or HI but is visibly emotional. CBC RBC 4.32. Coag panel PT 12.8, INR 1.2, APTT 37.6. Lipid panel TG 1144, T. Chol 205. Echo showed EF 40%. 04/11 Patient was seen and examined. No chest pain. Underwent cardiac cath showing severe stenosis of the first obtuse marginal, significant disease in the PLV with patent RCA stent, moderate disease in the LAD, stenting of the first OM. APTT 31.8. CMP glu 127, Ca 8.3, alb 3.3. 04/12 Patient was seen and examined. No chest pain. Discharge Instructions: Prescriptions for Effient, Lipitor, Nitro SL PRN sent to pharmacy. He would like to talk to his PCP about the Naltrexone as it can worsen depression prior to starting it. Continue Imdur, ASA, Metoprolol and Losartan. Follow up with PCP within 1-2 days and Cardiology within 1 week of discharge. General: non toxic, no distress, appears at stated age Derm: warm, dry Head: atraumatic, normocephalic, symmetric Eyes: EOMI, no lid lag, anicteric sclera Mouth: no lip lesion, mucus membranes moist Cardiovascular: S1 S2 reg Lungs: Clear to auscultation bilaterally, no accessory muscle use Ext: no gross muscle atrophy, no edema, no contractures Neuro: no focal neuro deficits Psych: Depressed mood Discharge Diagnosis: NSTEMI Depressed mood EtOH abuse with impending withdrawal Dyslipidemia Nicotine abuse Hypertension CAD with stenting This complex discharge took 35 minutes to complete. Patient Condition at Discharge: Stable Plan - Discharge Summary Discharge Rx Participant: Yes New Discharge Prescriptions: New Prasugrel [Effient] 10 mg PO DAILY #90 tab Atorvastatin [Lipitor] 80 mg PO HS #90 tab Nitroglycerin Sl Tabs [Nitrostat] 0.4 mg SUBLINGUAL Q5M PRN #25 tab PRN Reason: Chest Pain Continue Isosorbide Mononitrate [Isosorbide Mononitrate ER] 30 mg PO DAILY Aspirin [Adult Low Dose Aspirin EC] 81 mg PO DAILY Metoprolol Tartrate [Lopressor] 50 mg PO BID Losartan [Cozaar] 50 mg PO DAILY Discontinued Ticagrelor [Brilinta] 90 mg PO BID No Action icosapent ethyL [Icosapent Ethyl] 2 gm PO BID Potassium Citrate [Potassium Citrate ER] 20 meq PO BID Discharge Medication List Isosorbide Mononitrate [Isosorbide Mononitrate ER] 30 mg PO DAILY 02/14/17 [History] Aspirin [Adult Low Dose Aspirin EC] 81 mg PO DAILY 11/20/17 [History] Losartan [Cozaar] 50 mg PO DAILY 11/24/23 [History] Metoprolol Tartrate [Lopressor] 50 mg PO BID 11/24/23 [History] icosapent ethyL [Icosapent Ethyl] 2 gm PO BID 11/24/23 [History] Potassium Citrate [Potassium Citrate ER] 20 meq PO BID 04/09/24 [History] Atorvastatin [Lipitor] 80 mg PO HS #90 tab 04/12/24 [Rx] Nitroglycerin Sl Tabs [Nitrostat] 0.4 mg SUBLINGUAL Q5M PRN #25 tab 04/12/24 [Rx] Prasugrel [Effient] 10 mg PO DAILY #90 tab 04/12/24 [Rx] Follow up Appointment(s)/Referral(s): John Etienne MD [STAFF PHYSICIAN] - 1 Week Eusebio Betts MD [Primary Care Provider] - 1-2 days Patient Instructions/Handouts: After Radial Heart Catheterization (GEN) Discharge/Stand Alone Forms: [facility] James Quintero, Outpatient Counseling, In Substance Abuse Facilities
== END 2024-04-12 14:27 | disposition home or self-care (01) | DRG 174 ==
LOC: EC 10:36 → 6NMEDSUR 12:19 → OBSVTOIN 12:20 → 6NMEDSUR 13:18 → 3SCARD 04-10 04:43
PROVIDERS: ADMIT Family Medicine; ATTEND Family Medicine
PROC: 027034Z Dilation of Coronary Artery, One Artery with Drug-eluting Intraluminal Device, Percutaneous Approach (ICD-10-PCS; principal; 2024-04-11 09:00)
PROC: 4A023N7 Measurement of Cardiac Sampling and Pressure, Left Heart, Percutaneous Approach (ICD-10-PCS; principal; 2024-04-11 09:00)
PROC: B2111ZZ Fluoroscopy of Multiple Coronary Arteries using Low Osmolar Contrast (ICD-10-PCS; principal; 2024-04-11 09:00)
PROC: B240ZZ3 Ultrasonography of Single Coronary Artery, Intravascular (ICD-10-PCS; principal; 2024-04-11 09:00)
DX: I21.4 Non-ST elevation (NSTEMI) myocardial infarction (principal); I25.10 Atherosclerotic heart disease of native coronary artery without angina pectoris; I25.2 Old myocardial infarction; I25.5 Ischemic cardiomyopathy; T82.855A Stenosis of coronary artery stent, initial encounter; Y83.1 Surgical operation with implant of artificial internal device as the cause of abnormal reaction of the patient, or of later complication, without mention of misadventure at the time of the procedure; F32.A Depression, unspecified; F19.94 Other psychoactive substance use, unspecified with psychoactive substance-induced mood disorder; E11.9 Type 2 diabetes mellitus without complications; E78.5 Hyperlipidemia, unspecified; F10.239 Alcohol dependence with withdrawal, unspecified; F17.210 Nicotine dependence, cigarettes, uncomplicated; G47.30 Sleep apnea, unspecified; G47.9 Sleep disorder, unspecified; I10 Essential (primary) hypertension; Z79.02 Long term (current) use of antithrombotics/antiplatelets; Z79.82 Long term (current) use of aspirin; Z79.899 Other long term (current) drug therapy; Z82.49 Family history of ischemic heart disease and other diseases of the circulatory system; Z87.442 Personal history of urinary calculi; Z91.148 Patient's other noncompliance with medication regimen for other reason; Z91.199 Patient's noncompliance with other medical treatment and regimen due to unspecified reason; Z90.49 Acquired absence of other specified parts of digestive tract; Z28.310 Unvaccinated for COVID-19; Z88.5 Allergy status to narcotic agent
CPT/HCPCS: 36415; 71046; 80053; 80061; 83721; 83735; 84484; 85025; 85610; 85730; 92978; 93005; 93306; 93458; 96365; 96366; 96368; 99285; 99291

== ENCOUNTER 2024-09-16 08:27 | Observation (INO) | payer BC, OTHER ==
[2024-09-16] MEDS: ASPIRIN 81 MG PO STA (08:51)
[2024-09-16 09:04] LABS: Basophils # (A) 0.05 10*3/uL (0.00-0.10); Basophils % (A) 0.7 %; Eosinophils # (A) 0.18 10*3/uL (0.04-0.35); Eosinophils % (A) 2.6 %; HCT 46.7 % (39.6-50.0); HGB 16.4 g/dL (13.0-17.0); Lymphocytes # (A) 1.19 10*3/uL (0.90-5.00); Lymphocytes % (A) 17.3 %; MCH 31.9 pg (27.0-32.0); MCHC 35.1 g/dL (32.0-37.0); MCV 90.9 fL (80.0-97.0); Monocytes # (A) 0.73 10*3/uL (0.20-1.00); Monocytes % (A) 10.6 %; Neutrophils # (A) 4.73 10*3/uL (1.80-7.70); Neutrophils % (A) 68.7 %; Platelet Count 237 10*3/uL (140-440); RBC 5.14 10*6/uL (4.40-5.60); RDW 12.1 % (11.5-14.5); WBC 6.89 10*3/uL (4.50-10.00)
--- NOTE | 2024-09-16 09:06 | ED ---
Chest Pain HPI - General Chief Complaint: Chest Pain Stated Complaint: Chest and back discomfort Time Seen by Provider: 09/16/24 08:36 Source: patient, RN notes reviewed Mode of arrival: ambulatory Limitations: no limitations - History of Present Illness Initial Comments: 59-year-old male presents emergency department chief complaint of chest discomfort. Patient states around 7 PM last night. Patient states that his comfort in his chest through his back. Patient states he has had multiple heart attacks in the past including 3 stents states that his last stent was approximately 6 months ago. Patient denies any fevers or chills no cough cold- like symptoms no abdominal pain no diaphoretic episodes no syncopal episodes. - Related Data Home Medications Medication Instructions Recorded Confirmed Isosorbide Mononitrate [Isosorbide 30 mg PO DAILY 02/14/17 04/09/24 Mononitrate ER] Aspirin [Adult Low Dose Aspirin EC] 81 mg PO DAILY 11/20/17 04/09/24 Losartan [Cozaar] 50 mg PO DAILY 11/24/23 04/09/24 Metoprolol Tartrate [Lopressor] 50 mg PO BID 11/24/23 04/09/24 icosapent ethyL [Icosapent Ethyl] 2 gm PO BID 11/24/23 04/09/24 Potassium Citrate [Potassium 20 meq PO BID 04/09/24 04/09/24 Citrate ER] Previous Rx's Medication Instructions Recorded Atorvastatin [Lipitor] 80 mg PO HS #90 tab 04/12/24 Nitroglycerin Sl Tabs [Nitrostat] 0.4 mg SUBLINGUAL Q5M PRN #25 tab 04/12/24 Prasugrel [Effient] 10 mg PO DAILY #90 tab 04/12/24 Allergies Allergy/AdvReac Type Severity Reaction Status Date / Time codeine AdvReac Vomiting Verified 04/09/24 12:14 morphine AdvReac Nausea & Verified 04/09/24 12:14 Vomiting Review of Systems ROS Statement: Those systems with pertinent positive or pertinent negative responses have been documented in the HPI. ROS Other: All systems not noted in ROS Statement are negative. EKG Findings - EKG Comments: EKG Findings:: EKG performed at 8: 40 sinus rhythm rate of 95 ND 177 QRS 97 QT/QTc 362/415 - EKG Results: EKG: interpreted by DARYA Past Medical History Past Medical History: Diabetes Mellitus, Hyperlipidemia, Hypertension, Myocardial Infarction (VT), Sleep Apnea/CPAP/BIPAP Additional Past Medical History / Comment(s): kidney stones,no cpap,bowel obstruction,hx adhesion,loose stools since teenager,hemorrhoid Last Myocardial Infarction Date:: 09-23-2014 History of Any Multi-Drug Resistant Organisms: None Reported Past Surgical History: Heart Catheterization With Stent Additional Past Surgical History / Comment(s): bowel resection,2 surgeries for adhesions,heart stent x1, kidney stone removal, lithrotripsy Past Anesthesia/Blood Transfusion Reactions: No Reported Reaction Additional Past Anesthesia/Blood Transfusion Reaction / Comment(s): b/p was high after post op and took along time to come out of anesthesia w/ kidney stone procedure Nov 2017, hx of waking up during procedure,no hx blood transfusion Date of Last Stent Placement:: 09-23-2014 Past Psychological History: No Psychological Hx Reported Smoking Status: Current every day smoker Past Alcohol Use History: Daily, Heavy Past Drug Use History: Marijuana - Past Family History Mother Family Medical History: No Reported History Father Family Medical History: CVA/TIA, Hyperlipidemia, Hypertension General Exam Limitations: no limitations General appearance: alert, in no apparent distress Head exam: Present: atraumatic, normocephalic, normal inspection Eye exam: Present: normal appearance, PERRL, EOMI. Absent: scleral icterus, conjunctival injection, periorbital swelling ENT exam: Present: normal exam, mucous membranes moist Neck exam: Present: normal inspection. Absent: tenderness, meningismus, lymphadenopathy Respiratory exam: Present: normal lung sounds bilaterally. Absent: respiratory distress, wheezes, rales, rhonchi, stridor Cardiovascular Exam: Present: normal rhythm, tachycardia, normal heart sounds. Absent: systolic murmur, diastolic murmur, rubs, gallop, clicks GI/Abdominal exam: Present: soft, normal bowel sounds. Absent: distended, tende rness, guarding, rebound, rigid Neurological exam: Present: alert, oriented X3, CN II-XII intact, reflexes normal. Absent: motor sensory deficit Skin exam: Present: warm, dry, intact, normal color. Absent: rash Course Vital Signs 09/16/24 09/16/24 09/16/24 08:32 09:20 09:48 Temperature 98 F Pulse Rate 104 H 90 92 Respiratory 20 16 16 Rate Blood Pressure 180/97 168/105 148/105 O2 Sat by Pulse 97 Oximetry 09/16/24 10:41 Temperature Pulse Rate Respiratory Rate Blood Pressure 132/76 O2 Sat by Pulse Oximetry Chest Pain MDM - MDM Was pt. sent in by a medical professional or institution (, KATIE, INSURANCE WRITER, urgent care, hospital, or fpc...) When possible be specific @ -No Did you speak to anyone other than the patient for history (EMS, parent, family, police, friend...)? What history was obtained from this source @ -No Did you review nursing and triage notes (agree or disagree)? Why? @ -I reviewed and agree with nursing and triage notes Were old charts reviewed (outside hosp., previous admission, EMS record, old EKG, old radiological studies, urgent care reports/EKG's, fpc records)? Report findings @ -No old charts were reviewed Differential Diagnosis (chest pain, altered mental status, abdominal pain women, abdominal pain men, vaginal bleeding, weakness, fever, dyspnea, syncope, headache, dizziness, GI bleed, back pain, seizure, CVA, palpatations, mental health, musculoskeletal)? @ -[Differential Chest Pain: Stable Angina, Unstable Angina, STEMI, NSTEMI Aortic Dissection, Pneumothorax, Musculoskeletal, Esophageal Spasm GERD, Cholecystitis, Pancreatitis, Zoster, this is not meant to be an all-inclusive list. EKG interpreted by me (3pts min.). @ -As above X-rays interpreted by me (1pt min.). @ -Chest ray shows no acute cardiopulmonary process. CT interpreted by me (1pt min.). @ -None done U/S interpreted by me (1pt. min.). @ -None done What testing was considered but not performed or refused? (CT, X-rays, U/S, labs)? Why? @ -None What meds were considered but not given or refused? Why? @ -None Did you discuss the management of the patient with other professionals (professionals i.e. KATIE Strong, INSURANCE WRITER, lab, RT, psych nurse, social sciences department chair, hooker operator, teacher, fisheries enforcement officer, insurance case manager)? Give summary @ -Dr. Larose with [facility] for admission Was smoking cessation discussed for >3mins.? @ -No Was critical care preformed (if so, how long)? @ -No Were there social determinants of health that impacted care today? How? (Homelessness, low income, unemployed, alcoholism, drug addiction, transportation, low edu. Level, literacy, decrease access to med. care, usp, rehab)? @ -No Was there de-escalation of care discussed even if they declined (Discuss DNR or withdrawal of care, Hospice)? DNR status @ -No What co-morbidities impacted this encounter? (DM, HTN, Smoking, COPD, CAD, Cancer, CVA, ARF, Chemo, Hep., AIDS, mental health diagnosis, sleep apnea, morbid obesity)? @ -CAD Was patient admitted / discharged? Hospital course, mention meds given and route, prescriptions, significant lab abnormalities, going to OR and other pertinent info. @ -Admitted patient presented with concern ACS chest pain symptoms. Patient was negative. Patient said extensive cardiac history patient had recent echocardiogram will not repeat. Patient follows, cardiology evaluation Undiagnosed new problem with uncertain prognosis? @ -No Drug Therapy requiring intensive monitoring for toxicity (Heparin, Nitro, Insulin, Cardizem)? @ -No Were any procedures done? @ -No Diagnosis/symptom? @ -Chest pain Acute, or Chronic, or Acute on Chronic? @ -Acute Uncomplicated (without systemic symptoms) or Complicated (systemic symptoms)? @ -Complicated Side effects of treatment? @ -No Exacerbation, Progression, or Severe Exacerbation? @ -No Poses a threat to life or bodily function? How? (Chest pain, USA, VT, pneumonia, PE, COPD, DKA, ARF, appy, cholecystitis, CVA, Diverticulitis, Homicidal, Suicidal, threat to staff... and all critical care pts) @ -Yes risk to cardiac function Disposition Clinical Impression: Chest pain Disposition: ADMITTED IP TO THIS HOSP Condition: Fair Referrals: Francine Darby MD [Primary Care Provider] - 1-2 days Time of Disposition: 10:47
[2024-09-16 09:14] LABS: ALT 27 U/L (4-49); AST 31 U/L (17-59); African American GFR (CKD) >90 (>60 ml/min/1.73 sqM); Albumin 4.3 g/dL (3.5-5.0); Alkaline Phosphatase 56 U/L (38-126); Anion Gap 9 mmol/L; Blood Urea Nitrogen 15 mg/dL (9-20); Calcium 9.2 mg/dL (8.4-10.2); Carbon Dioxide 22 mmol/L (22-30); Chloride 107 mmol/L (98-107); Glucose 205 mg/dL (74-99); Lipase 98 U/L (23-300); Magnesium 1.8 mg/dL (1.6-2.3); Non-African American GFR(CKD) >90 (>60 ml/min/1.73 sqM); Potassium 3.9 mmol/L (3.5-5.1); Sodium 138 mmol/L (137-145); Total Protein 6.6 g/dL (6.3-8.2)
[2024-09-16 09:20] LABS: INR 1.0 (<1.2); Partial Thromboplastin Time 24.4 sec (22.0-30.0); Prothrombin Time 11.3 sec (10.0-12.5)
--- NOTE | 2024-09-16 09:20 | XR ---
EXAMINATION TYPE: XR chest 2V DATE OF EXAM: 09/16/2024 COMPARISON: 04/09/2024 CLINICAL INDICATION: Male, 59 years old with history of Chest Pain; , TECHNIQUE: XR chest 2V views of the chest. FINDINGS: The lungs are clear and there is no pneumothorax, pleural effusion, or focal pneumonia. Heart size normal and no overt failure. Degenerative changes of the spine. IMPRESSION: 1. No acute process. [facility], , 09/16/2024 9:17 AM
[2024-09-16] MEDS: NITROGLYCERIN SL TABS 0.4 MG TAB SUBLINGUAL STA (09:21)
[2024-09-16 09:23] LABS: NT-Pro-B-Type Natriuretic Pept 303 pg/mL
[2024-09-16] MEDS ORDERED: NITROGLYCERIN SL TABS 0.4 MG TAB SUBLINGUAL PRN ×2 (10:42→17:23)
[2024-09-16] MEDS ORDERED: LORazepam 0.5 MG TAB PO PRN (17:24)
[2024-09-16] MEDS ORDERED: LORazepam 1 MG TAB PO PRN ×3 (17:24)
[2024-09-16] MEDS: ISOSORBIDE MONONITRATE ER 30 MG TAB.ER.24H PO SCH (17:35)
[2024-09-16 20:36] LABS: Glucose,Whole Blood 180 mg/dL (70-110)
[2024-09-16] MEDS: ATORVASTATIN 80 MG TAB PO SCH (21:24)
[2024-09-16] MEDS: METOPROLOL TARTRATE 50 MG TAB PO SCH (21:25)
[2024-09-16] MEDS: ACETAMINOPHEN TAB 325 MG TAB PO PRN (21:25)
[2024-09-16] MEDS: PATIENT'S OWN (Icosapent Ethyl [Icosapent Ethyl] 1 GM Capsule) PO SCH (21:26)
--- NOTE | 2024-09-17 01:14 | HP ---
HISTORY AND PHYSICAL CHIEF COMPLAINT: Chest pain. HISTORY OF PRESENT ILLNESS: This 59-year-old gentleman with a past medical history of multiple medical problems including CAD with stent, he was complaining of chest pain, which was felt in the anterior part of chest which radiated into the back and the patient came to [facility] and admitted for further evaluation and treatment. The initial troponins are showing 0.105. There is no history of any fever, rigors, chills. The EKG which I reviewed personally showed some nonspecific ST-T changes, incomplete right bundle- branch block also. PAST MEDICAL HISTORY: Reviewed. Include CAD with stent, diabetes mellitus type 2. Rest of history and chart is also reviewed. HOME MEDICATIONS: Reviewed. Include Jardiance. Dose and rest of medications reviewed. ALLERGIES: Codeine. FAMILY HISTORY: History of hypertension, hyperlipidemia, CVA, TIA. SOCIAL HISTORY: History of THC, alcohol, smoking. REVIEW OF SYSTEMS: A 14-point review of systems negative except as mentioned earlier. PHYSICAL EXAMINATION: VITAL SIGNS: Pulse is 74, blood pressure 130/100 respirations 17. HEENT: Conjunctivae normal. NECK: No jugular venous distention. CARDIOVASCULAR: S1, S2. RESPIRATION: Breath sounds diminished at the bases. ABDOMEN: Soft, nontender. LEGS: No edema. No swelling. NERVOUS SYSTEM: No focal deficit. LABORATORY DATA: Reviewed. ASSESSMENT: 1. Chest pain, possible unstable angina. 2. History of coronary artery disease, stent. 3. History of EtOH. 4. Diabetes mellitus type 2. 5. Hypertension. 6. Hyperlipidemia. 7. Nephrolithiasis. RECOMMENDATION: This 59-year-old gentleman presented with multiple complex medical issues. We will monitor the patient closely. Continue with current medications. Rule out a myocardial infarction. Unstable angina protocol. Follow closely with Cardiology. [place] protocol. Resume the home medications. Monitor blood pressure closely. Symptomatic treatment. Prognosis guarded. Further recommendations to follow. MMODL / IJN: [id number] /
[2024-09-17 02:55] VITALS: PULSE 61; RESP 16
[2024-09-17] MEDS: PANTOPRAZOLE 40 MG TABLET PO SCH (06:30)
[2024-09-17 07:29] LABS: Basophils # (A) 0.05 10*3/uL (0.00-0.10); Basophils % (A) 0.7 %; Eosinophils # (A) 0.21 10*3/uL (0.04-0.35); Eosinophils % (A) 3.1 %; HCT 42.2 % (39.6-50.0); HGB 14.4 g/dL (13.0-17.0); Lymphocytes # (A) 1.02 10*3/uL (0.90-5.00); Lymphocytes % (A) 15.3 %; MCH 32.3 pg (27.0-32.0); MCHC 34.1 g/dL (32.0-37.0); MCV 94.6 fL (80.0-97.0); Monocytes # (A) 0.64 10*3/uL (0.20-1.00); Monocytes % (A) 9.6 %; Neutrophils # (A) 4.75 10*3/uL (1.80-7.70); Neutrophils % (A) 71.2 %; Platelet Count 226 10*3/uL (140-440); RBC 4.46 10*6/uL (4.40-5.60); RDW 12.2 % (11.5-14.5); WBC 6.68 10*3/uL (4.50-10.00)
[2024-09-17 08:33] LABS: African American GFR (CKD) >90 (>60 ml/min/1.73 sqM); Anion Gap 8 mmol/L; Blood Urea Nitrogen 13 mg/dL (9-20); Calcium 9.0 mg/dL (8.4-10.2); Carbon Dioxide 22 mmol/L (22-30); Chloride 110 mmol/L (98-107); Glucose 124 mg/dL (74-99); Non-African American GFR(CKD) >90 (>60 ml/min/1.73 sqM); Potassium 4.1 mmol/L (3.5-5.1); Sodium 140 mmol/L (137-145)
[2024-09-17] MEDS ORDERED: CAFFEINE CITRATE 60 MG/3 ML VIAL IV PRN (08:51)
[2024-09-17] MEDS ORDERED: REGADENOSON 0.4 MG/5 ML SYRINGE IV PRN (08:51)
[2024-09-17] MEDS ORDERED: AMINOPHYLLINE 500 MG/20 ML VIAL IV PRN (08:51)
[2024-09-17] MEDS ORDERED: DAPAGLIFLOZIN PROPANEDIOL 5 MG TABLET PO SCH (09:00)
[2024-09-17] MEDS ORDERED: ASPIRIN 325 MG TAB PO SCH (09:00)
[2024-09-17] MEDS ORDERED: ASPIRIN 81 MG PO SCH (09:00)
[2024-09-17] MEDS ORDERED: LOSARTAN 50 MG TAB PO SCH ×2 (09:00)
[2024-09-17] MEDS ORDERED: PRASUGREL 10 MG TAB PO SCH (09:00)
[2024-09-17 09:37] VITALS: BP 147/76; TEMP 97.6
--- NOTE | 2024-09-17 09:52 | P.CRDCN ---
History of Present Illness History of present illness: HISTORY OF PRESENT ILLNESS: This is a 59-year-old male with a past medical history significant for coronary artery disease with previous stenting, cardiomyopathy, hypertension, hyperlipid emia, noncompliance, alcohol abuse, and nicotine dependence. Patient follows in the office with Dr. Etienne. We have been asked to see the patient in consultation for chest pain. Patient examined at the bedside. Patient states yesterday he started to develop chest discomfort. He states that he was about to watch a [employer] game. He denied having any chest pain prior to this. He denied any radiation of the pain. He states the pain is worse with cough, deep inspiration, or stretching across his body with his left arm. Patient's losartan was increased to 100 mg on an outpatient basis from 50 mg to optimize blood pressure. Patient states when this happened he started to experience some dizziness so he stopped the losartan altogether instead of going back down to his previous dose of 50 mg daily. Patient reports he is still smoking. He reports smoking half a pack per day. He also reports daily alcohol use of at least 5 drinks a day. DIAGNOSTICS: - EKG reveals sinus mechanism with no signs of acute ischemia. - Chest xray negative for acute process. - Laboratory data: WBC 6.68. Hemoglobin 14.4. Platelet count 226. Sodium 140. Potassium 4.1. BUN 13. Creatinine 0.79. Troponin negative x 4. - Current home cardiac medications include Jardiance 10 mg daily, Effient 10 mg daily, losartan 100 mg daily, Imdur 30 mg daily, Lipitor 80 mg at night, aspirin 81 mg daily. - Most recent echocardiogram obtained in the office in August 2024 revealed ejection fraction 40 to 45%, small hypokinetic area of inferior lateral wall at the base, small hypokinetic area of inferior septal wall at the base, mild MR, mild TR - Cardiac catheterization history: March 2024 revealed severe stenosis in first obtuse marginal branch, significant disease in the PLB with patent stent in the RCA, moderate disease of the LAD with no progression compared to 2015. Patient underwent stenting of the first OM. REVIEW OF SYSTEMS: At the time of my exam: CONSTITUTIONAL: Denies fever or chills. HEENT: Denies blurred vision, vision changes, or eye pain. Denies hemoptysis CARDIOVASCULAR: Denies chest pain. Denies orthopnea. Denies PND. Denies palpitations RESPIRATORY: Denies shortness of breath. GASTROINTESTINAL: Denies abdominal pain. Denies nausea or vomiting. HEMATOLOGIC: Denies bleeding disorders. GENITOURINARY: Denies any blood in urine. SKIN: Denies pruitis. Denies rash. PHYSICAL EXAM: VITAL SIGNS: Reviewed. GENERAL: Well-developed in no acute distress. HEENT: Head is normocephalic. Pupils are equal, round. Sclerae anicteric. Mucous membranes of the mouth are moist. Neck supple. No JVD or thyromegaly LUNGS: Respirations even and unlabored. Lungs essentially clear to auscultation bilaterally. HEART: Regular rate and rhythm. S1 and S2 heard. ABDOMEN: Soft. Nondistended. Nontender. EXTREMITIES: Normal range of motion. No clubbing or cyanosis. Peripheral pulses intact. No lower extremity edema NEUROLOGIC: Awake and alert. Oriented x 3. ASSESSMENT: Chest pain, troponin negative x 4, appears musculoskeletal, reproducible with movement and deep inspiration Coronary artery disease with previous stenting, most recently to first obtuse marginal branch in March 2024 Ischemic cardiomyopathy, 4045% Hypertension Hyperlipidemia History of noncompliance Alcohol abuse, patient drinks at least 5 drinks per day Nicotine dependence, patient smokes half a pack per day PLAN: An acute coronary event has been ruled out No need to repeat echocardiogram as this was performed in the office in August 2024 Resume home cardiac medications Decrease losartan back to 50 mg daily as he was not taking this when his dose was increased to 100 mg daily due to dizziness Patient to undergo Lexiscan stress test today Reinforced medication compliance Recommend abstinence from alcohol and nicotine. Patient to be referred to [place] quit line upon discharge. If negative, the patient may be discharged home from a cardiac standpoint Nurse practitioner note has been reviewed by physician. Signing provider agrees with the documented findings, assessment, and plan of care documented by FITTING ROOM CHECKER as a scribe. Past Medical History Past Medical History: Diabetes Mellitus, Hyperlipidemia, Hypertension, Myocardial Infarction (MT) Additional Past Medical History / Comment(s): kidney stones,bowel obstruction,hx adhesion,loose stools since teenager,hemorrhoid Last Myocardial Infarction Date:: 04/09/2024 History of Any Multi-Drug Resistant Organisms: None Reported Past Surgical History: Heart Catheterization With Stent Additional Past Surgical History / Comment(s): bowel resection,2 surgeries for adhesions,heart stent x4, kidney stone removal, lithrotripsy Past Anesthesia/Blood Transfusion Reactions: No Reported Reaction Additional Past Anesthesia/Blood Transfusion Reaction / Comment(s): b/p was high after post op and took along time to come out of anesthesia w/ kidney stone procedure Nov 2017, hx of waking up during procedure,no hx blood transfusion Date of Last Stent Placement:: 04/11/2024 Past Psychological History: No Psychological Hx Reported Additional Psychological History / Comment(s): Pt resides with his spouse. He is independent. Smoking Status: Current every day smoker Past Alcohol Use History: Daily, Heavy Additional Past Alcohol Use History / Comment(s): started smoking at age 17 alittle over 0.5 ppd. Pt states he cut down on alcohol approximately 3-4 years ago and now drinks about every other day-apporximately 14 drinks per week. Past Drug Use History: Marijuana Additional Drug Use History / Comment(s): rare marijuana use. - Past Family History Mother Family Medical History: No Reported History Father Family Medical History: CVA/TIA, Hyperlipidemia, Hypertension Medications and Allergies Home Medications Medication Instructions Recorded Confirmed Type Isosorbide Mononitrate [Isosorbide 30 mg PO DAILY 02/14/17 09/16/24 History Mononitrate ER] Aspirin [Adult Low Dose Aspirin EC] 81 mg PO DAILY 11/20/17 09/16/24 History Metoprolol Tartrate [Lopressor] 50 mg PO BID 11/24/23 09/16/24 History icosapent ethyL [Icosapent Ethyl] 2 gm PO BID 11/24/23 09/16/24 History Atorvastatin [Lipitor] 80 mg PO HS #90 tab 04/12/24 09/16/24 Rx Nitroglycerin Sl Tabs [Nitrostat] 0.4 mg SUBLINGUAL Q5M PRN #25 tab 04/12/24 09/16/24 Rx Prasugrel [Effient] 10 mg PO DAILY #90 tab 04/12/24 09/16/24 Rx Empagliflozin [Jardiance] 10 mg PO DAILY 09/16/24 09/16/24 History Losartan Potassium [Cozaar] 100 mg PO DAILY 09/16/24 09/16/24 History Allergies Allergy/AdvReac Type Severity Reaction Status Date / Time codeine AdvReac Vomiting Verified 09/16/24 10:44 morphine AdvReac Nausea & Verified 09/16/24 10:44 Vomiting Physical Exam Vitals: Vital Signs Temp Pulse Pulse Resp BP BP Pulse Ox 09/17/24 07:00 97.6 F 61 16 147/76 97 09/17/24 02:00 98.1 F 61 16 137/75 98 09/16/24 19:34 99.3 F 77 18 149/76 97 09/16/24 14:17 98.0 F 74 17 173/100 98 09/16/24 14:00 74 09/16/24 12:00 98.2 F 74 16 153/95 98 09/16/24 10:41 132/76 09/16/24 09:48 92 16 148/105 Intake and Output 09/16/24 09/17/24 09/17/24 22:59 06:59 14:59 Other: # Voids 1 Results 09/17/24 06:52 09/17/24 06:52 Cardiac Enzymes 09/16/24 09/16/24 09/16/24 Range/Units 13:06 15:22 21:22 Troponin I 0.015 0.015 0.015 (0.000-0.034) ng/mL 09/17/24 Range/Units 06:52 Troponin I <0.012 (0.000-0.034) ng/mL CBC 09/17/24 Range/Units 06:52 WBC 6.68 (4.50-10.00) 10*3/uL RBC 4.46 (4.40-5.60) 10*6/uL Hgb 14.4 (13.0-17.0) g/dL Hct 42.2 (39.6-50.0) % Plt Count 226 (140-440) 10*3/uL Comprehensive Metabolic Panel 09/17/24 Range/Units 06:52 Sodium 140 (137-145) mmol/L Potassium 4.1 (3.5-5.1) mmol/L Chloride 110 H (98-107) mmol/L Carbon Dioxide 22 (22-30) mmol/L BUN 13 (9-20) mg/dL Creatinine 0.79 (0.66-1.25) mg/dL Glucose 124 H (74-99) mg/dL Calcium 9.0 (8.4-10.2) mg/dL Current Medications Generic Name Dose Route Start Last Admin Trade Name Freq PRN Reason Stop Dose Admin Acetaminophen 650 mg 09/16/24 20:49 09/16/24 21:25 Acetaminophen Tab 325 Mg Tab PO 650 mg Q6HR PRN Administration Fever and/ or Pain Aminophylline 100 mg 09/17/24 08:51 Aminophylline 500 Mg/20 Ml Vial IV 09/17/24 12:51 ONCE PRN Patient Response Aspirin 81 mg 09/17/24 09:00 Aspirin 81 Mg PO DAILY [facility] Atorvastatin Calcium 80 mg 09/16/24 21:00 09/16/24 21:24 Atorvastatin 80 Mg Tab PO 80 mg HS PAUL Administration Caffeine Citrate 60 mg 09/17/24 08:51 Caffeine Citrate 60 Mg/3 Ml Vial IV 09/17/24 12:51 ONCE PRN Patient Response Dapagliflozin 5 mg 09/17/24 09:00 Dapagliflozin Propanediol 5 Mg Tablet PO DAILY [facility] Isosorbide Mononitrate 30 mg 09/16/24 17:30 09/16/24 17:35 Isosorbide Mononitrate Er 30 Mg Tab.Er.24h PO 30 mg DAILY PAUL Administration Lorazepam 2 mg 09/16/24 17:24 Lorazepam 1 Mg Tab PO Q3HR PRN Ciwa 8 To 9 Lorazepam 1 mg 09/16/24 17:24 Lorazepam 1 Mg Tab PO Q4HR PRN Ciwa 6 To 7 Lorazepam 0.5 mg 09/16/24 17:24 Lorazepam 0.5 Mg Tab PO Q4HR PRN Ciwa 4 To 5 Lorazepam 2 mg 09/16/24 17:24 Lorazepam 1 Mg Tab PO Q2HR PRN Ciwa 10 or greater Losartan Potassium 50 mg 09/17/24 09:00 Losartan 50 Mg Tab PO DAILY [facility] Metoprolol Tartrate 50 mg 09/16/24 21:00 09/16/24 21:25 Metoprolol Tartrate 50 Mg Tab PO 50 mg BID PAUL Administration Nitroglycerin 0.4 mg 09/16/24 17:23 Nitroglycerin Sl Tabs 0.4 Mg Tab SUBLINGUAL Q5M PRN Chest Pain Patient's Own ( 2 gm 09/16/24 21:00 09/16/24 21:26 Icosapent Ethyl [ PO Not Given Icosapent Ethyl] 1 BID PAUL Gm Capsule) Pantoprazole Sodium 40 mg 09/17/24 07:30 07/30/25 06:30 Pantoprazole 40 Mg Tablet PO 40 mg AC-BRKFST PAUL Administration Prasugrel 10 mg 09/17/24 09:00 Prasugrel 10 Mg Tab PO DAILY PAUL Regadenoson 0.4 mg 09/17/24 08:51 Regadenoson 0.4 Mg/5 Ml Syringe IV 09/17/24 12:51 ONCE PRN Per Protocol Intake and Output 09/16/24 09/17/24 09/17/24 22:59 06:59 14:59 Other: # Voids 1 09/17/24 06:52 09/17/24 06:52
--- NOTE | 2024-09-17 13:04 | CA ---
Lexiscan Nuclear Stress Test Report Name: Venancio Nugent Exam Date: 09/17/2024 11:09 Exam Location: [facility] Ht (in): 67 Wt (lb): 160 BSA: 1.84 Ordering Phys: Domenica Tong Referring Phys: BONNIE Technologist: MARGIE NICHOLS Age: 59 Gender: M : 1965 Procedure CPT: Indications: Reflex order-Stress test ICD-10 Codes: Patient History: CHEST PAIN, HTN, DIABETES, HYPERCHOLESTEROLEMIA, CURRENT SMOKER 0.5 PPD X 40 YEARS, PRIOR FL, PRIOR CATH WITH STENT X 4 Medications: SEE CHART,,, Meds past 24 hrs: Pretest Chest Pain: STRESS TEST Lexiscan Protocol Exercise Duration (min:sec): 02:[address] Depressions (mm): Angina Score: Fong Score: Resting HR (bpm): 63 Peak HR (bpm): 93 Resting BP (mmHg): 155 / 91 Peak BP (mmHg): 174 / 106 MPHR: 160 Target HR: 136 % MPHR: 58 METS: 1.0 Total Dose: Peak Dose: Atropine: Double Product: 25363 BP Response: Stress Termination: INFUSION COMPLETE Stress Symptoms: NAUSEA,LIGHT HEADED Stress Summary: ECG ANALYSIS Resting ECG: Sinus rhythm. Normal conduction. No arrhythmias. Normal repolarization. Stress ECG: No ECG changes from baseline with Lexiscan infusion. CONCLUSIONS No ECG evidence of ischemia with Lexiscan infusion. Nuclear test results to follow. Dr. John Etienne MD (Electronically Signed) Final Date: 17 September 2024 13:03
--- NOTE | 2024-09-17 13:41 | NM ---
Routine annual EXAMINATION TYPE: NM stress lexiscan cardiolite DATE OF EXAM: 09/17/2024 COMPARISON: NONE CLINICAL INDICATION: Male, 59 years old with history of CP; TECHNIQUE: After the intravenous administration of 10.4 mCi Tc 99m Sestamibi - Cardiolite resting SP ECT images acquired 71 minutes post injection. The patient received 0.4mg Lexiscan, 25.3 mCi Tc 99m Sestamibi - Stress images obtained [address] injection FINDINGS: Review of stress and rest SPECT images demonstrates no distinct reversible perfusion abnormality. Fix ed defect anterolateral wall. Gated analysis shows global hypokinesia with an ejection fraction 29%. IMPRESSION: No scintigraphic evidence for reversible ischemia. [facility], , 09/17/2024 1:39 PM
[2024-09-17 15:26] LABS: Cholesterol 139.00 mg/dL (0.00-200.00); HDL Cholesterol 31.60 mg/dL (40.00-60.00); LDL Cholesterol,Calculated 28.4 mg/dL (0.0-131.0); Triglycerides 395.00 mg/dL (0.00-149.00); VLDL Calculation 79.00 mg/dL (5.00-40.00)
== END 2024-09-17 15:27 | disposition home or self-care (01) ==
LOC: EC 08:27 → 1SOBS 11:17
PROVIDERS: ADMIT Internal Medicine; ATTEND Internal Medicine
DX: R07.89 Other chest pain (principal); I25.10 Atherosclerotic heart disease of native coronary artery without angina pectoris; I25.5 Ischemic cardiomyopathy; I10 Essential (primary) hypertension; T46.5X6A Underdosing of other antihypertensive drugs, initial encounter; Z91.128 Patient's intentional underdosing of medication regimen for other reason; E78.5 Hyperlipidemia, unspecified; I08.1 Rheumatic disorders of both mitral and tricuspid valves; N20.0 Calculus of kidney; F10.10 Alcohol abuse, uncomplicated; R42 Dizziness and giddiness; M54.9 Dorsalgia, unspecified; I25.2 Old myocardial infarction; F17.210 Nicotine dependence, cigarettes, uncomplicated; Z79.84 Long term (current) use of oral hypoglycemic drugs; Z79.82 Long term (current) use of aspirin; Z79.02 Long term (current) use of antithrombotics/antiplatelets; Z79.899 Other long term (current) drug therapy; Z88.5 Allergy status to narcotic agent; Z95.5 Presence of coronary angioplasty implant and graft
CPT/HCPCS: 99285; 36415; 93005; 93017; 85379; 83880; 80061; 80053; 80048; 83690; 83735; 84484 ×2; 85025 ×2; 85610; 85730; 71046; 78452; G0378 ×2; A9500; J2785